=== PATIENT | female | born 1940 | race Caucasian/White ===

== ENCOUNTER 2016-09-15 11:52 | Inpatient (IN) | payer MEDICARE, OTHER ==
[~2016-09-15] VITALS: Ht 154.9 cm; Wt 50.5 kg
[2016-09-15] VITALS (7 sets, daily range): BP systolic 118–170; BP diastolic 67–88; PULSE 75–93; RESP 16–18; TEMP 97.7–98.1; O2SAT 92–97
[~2016-09-15 11:52] MED LIST: LEVO112T2 PO; METHO500 PO; MOBI7.5T PO; RANI150T PO
[2016-09-15] MEDS ORDERED: LEVO150T7 PO (12:36)
[2016-09-15] MEDS ORDERED: ASPI1TAB91 PO (12:36)
[2016-09-15] MEDS ORDERED: MONT10TA2 PO (12:36)
[2016-09-15] MEDS ORDERED: ZANT150T2 PO (12:36)
[2016-09-15] MEDS ORDERED: CALC500T35 PO (12:36)
[2016-09-15] MEDS ORDERED: FISH1200 PO (12:36)
[2016-09-15] MEDS ORDERED: MULT-65 PO (12:36)
[2016-09-15] MEDS ORDERED: IPRA0.03 EACH NARE (12:36)
[2016-09-15] MEDS ORDERED: CLAR10TA7 PO (12:36)
--- NOTE | 2016-09-15 12:42 | PD ---
HPI Chief Complaint: Respiratory Symptoms Time Seen by Provider: 12:36 Travel History International Travel<30 days: No Contact w/Intl Traveler<30days: No Traveled to known affect area: No History of Present Illness HPI 76- year old female presents to the ED complaining of shortness of breath. The patient reports she has been short of breath for the past three weeks, but getting worse in the past week. She reports that she is seeing Dr. Kenny Castillo , her cost reduction engineer who sent her here after reviewing her CXR she had completed on 09/07. The CXR showed fluid under her lungs and an enlarged heart. The patient reports that her shortness of breath is worse with activity. She was prescribed Singulair by Dr. Castillo, which she reports helped a little. The patient reports over the past few nights she has had to get out of bed and sit up in a recliner to catch her breath. She reports her medical conditions include hypothyroidism, allergies, and chronic cough. She reports taking a baby aspirin every morning. PFSH Past Medical History Hx Anticoagulant Therapy: Yes (81 MG ASA) Diminished Hearing: No GERD: Yes Thyroid Disease: Yes (hypothyroid) Tetanus Vaccination: Unknown ?: Not Tubal Ligation: Yes Past Surgical History Abdominal Surgery: Yes (spleenectomy ) Cholecystectomy: Yes (2002) Hysterectomy: Yes Tonsillectomy: Yes Other Surgery: Yes (bilat hand surgeries ) Social History Alcohol Use: No Tobacco Use: No Substance Use: No Allergies-Medications (Allergen,Severity, Reaction): Coded Allergies: Latex (Verified Allergy, Intermediate, RASH AND ITCHY, 09/15/16) ONLY WHEN EXPOSED FOR LONG TIME PERIODS Reported Meds & Prescriptions Reported Meds & Active Scripts Active Reported Singulair (Montelukast Sodium) 10 Mg Tab 10 Mg PO DAILY Calcium (Oyster Shell) 500 Mg Tab 500 Mg PO BID Aspirin Adult Low Strength (Aspirin) 81 Mg Tabdr 81 Mg PO DAILY Multi-Vitamin Daily (Multiple Vitamin) 1 Tab Tab 1 Tab PO DAILY Fish Oil 1200 mg (Schurz-3 Fatty Acids) 1 Cap Cap 1,200 Mg PO DAILY Claritin (Loratadine) 10 Mg Tablet 10 Mg PO DAILY Ipratropium Nasal 0.03% [place] 1 [place] EACH NARE TID Zantac (Ranitidine HCl) 150 Mg Tab 150 Mg PO BID Levothyroxine (Levothyroxine Sodium) 150 Mcg Tab 150 Mcg PO DAILY Review of Systems General / Constitutional: No: Fever, Chills, Weight Gain, Weight Loss, Other Eyes: No: Diploplia, Blurred Vision, Photophobia, Drainage, Redness, Foreign Body Sensation, Pain, Tearing, Blind Spots, Visual changes, Blindness, Other HENT: No: Headaches, Vertigo, Lightheadedness, Sore Throat, Rhinitis, Rhinorrhea, Congestion, Nosebleed, Neck Stiffness, Neck Pain, Masses, Gingival Bleeding, Dental Difficulties, Ear Discharge, Earache, Other Cardiovascular: No: Chest Pain or Discomfort, Palpitations, Irregular Rhythm, Tachycardia, Diaphoresis, Syncope, Dyspnea on exertion, Varicosities, Edema, Cyanosis, Varicosities, Phlebitis, Claudication, Other Respiratory: Positive: Cough, Shortness of Breath, Orthopnea, No: Wheezing, Sneezing, Hemoptysis, Stridor, Night Sweats, Pleuritic Pain, Other Gastrointestinal: No: Nausea, Vomiting, Diarrhea, Abdominal Pain, Hematemesis, Hematochezia, Constipation, Changes in Bowel Habits, Indigestion, Dysphagia, Loss of Appetite, Other Genitourinary: No: Urgency, Frequency, Dysuria, Nocturia, Hematuria, Decreased Urinary Output, Oliguria, Hesitancy, Dribbling, Incontinence, Pelvic Pain, Flank Pain, Dyspareunia, Discharge, Dysmenorrhea, Menorrhagia, Metorrhagia, Vaginal Bleeding, Other Musculoskeletal: No: Myalgias, Arthralgias, Limited ROM, Weakness, Cramping, Edema, Pain, Atrophy, Other Skin: No Rash, No Itching, No Dryness, No Lumps, No Hives, No Change in Pigmentation, No Change in nails, No Alopecia, No Lesions, No Breast Lumps, No Breast Tenderness, No Breast Swelling, No Other Neurologic: No: Weakness, Dizziness, Syncope, Focal Abnormalities, Coordination Problem, Tremor, Ataxia, Headache, Change in Mentation, Slurred Speech, Paresthesia, Incontinence, Seizures, Sensory Disturbance, Other Psychiatric: No: Anxiety, Depression, Suicidal Ideations, Disorder of Thought, Mood Disorder, Substance Abuse, Homicidal Ideation, Other Endocrine: No: Heat Intolerance, Cold Intolerance, Polyuria, Polydipsia, Other Hematologic/Lymphatic: No: Easy Bruising, Lymph Node Enlargement, Other Physical Exam Narrative GENERAL: Patient sitting up. SKIN: Warm and dry. HEAD: Atraumatic. Normocephalic. EYES: Pupils equal and round. No scleral icterus. No injection or drainage. ENT: No nasal bleeding or discharge. Mucous membranes pink and moist. NECK: Trachea midline. No JVD. CARDIOVASCULAR: Regular rate and rhythm. RESPIRATORY: Patient taking breaks while speaking due to SOB. No accessory muscle use. Clear to auscultation. Breath sounds equal bilaterally. GASTROINTESTINAL: Abdomen soft, non-tender, nondistended. Hepatic and splenic margins not palpable. MUSCULOSKELETAL: Extremities without clubbing, cyanosis, or edema. No obvious deformities. NEUROLOGICAL: Awake and alert. No obvious cranial nerve deficits. Motor grossly within normal limits. Five out of 5 muscle strength in the arms and legs. Normal speech. PSYCHIATRIC: Appropriate mood and affect; insight and judgment normal. Data Data Last Documented VS Vital Signs Date Time Temp Pulse Resp B/P Pulse Ox O2 Delivery O2 Flow Rate FiO2 09/15/16 14:37 83 18 145/88 97 Nasal Cannula 3 09/15/16 11:54 97.7 Orders Electrocardiogram (09/15/16 12:25) Complete Blood Count With Diff (09/15/16 12:25) Basic Metabolic Panel (Bmp) (09/15/16 12:25) B-Type Natriuretic Peptide (09/15/16 12:25) D-Dimer (09/15/16 12:25) Magnesium (Mg) (09/15/16 12:25) Chest, Single Ap (09/15/16 12:25) Iv Access Insert/Monitor (09/15/16 12:25) Ecg Monitoring (09/15/16 12:25) Oximetry (09/15/16 12:25) Oxygen Administration (09/15/16 13:02) Ct Pulmonary Angiogram (09/15/16 13:15) Troponin I (09/15/16 13:37) Furosemide Inj (Lasix Inj) (09/15/16 13:45) Iohexol 350 Inj (Omnipaque 350 Inj) (09/15/16 13:59) Admit Order (Ed Use Only) (09/15/16 14:59) Labs Laboratory Tests Test 09/15/16 12:37 White Blood Count 7.7 TH/MM3 Red Blood Count 4.39 MIL/MM3 Hemoglobin 14.2 GM/DL Hematocrit 39.9 % Mean Corpuscular Volume 90.9 FL Mean Corpuscular Hemoglobin 32.2 PG Mean Corpuscular Hemoglobin 35.5 % Concent Red Cell Distribution Width 15.1 % Platelet Count 362 TH/MM3 Mean Platelet Volume 7.6 FL Neutrophils (%) (Auto) 64.8 % Lymphocytes (%) (Auto) 23.6 % Monocytes (%) (Auto) 9.9 % Eosinophils (%) (Auto) 0.9 % Basophils (%) (Auto) 0.8 % Neutrophils # (Auto) 5.0 TH/MM3 Lymphocytes # (Auto) 1.8 TH/MM3 Monocytes # (Auto) 0.8 TH/MM3 Eosinophils # (Auto) 0.1 TH/MM3 Basophils # (Auto) 0.1 TH/MM3 CBC Comment DIFF FINAL Differential Comment D-Dimer Quantitative (PE/DVT) 1.35 MG/L FEU Sodium Level 142 MEQ/L Potassium Level 4.1 MEQ/L Chloride Level 107 MEQ/L Carbon Dioxide Level 26.2 MEQ/L Anion Gap 9 MEQ/L Blood Urea Nitrogen 16 MG/DL Creatinine 0.80 MG/DL Estimat Glomerular Filtration 70 ML/MIN Rate Random Glucose 89 MG/DL Calcium Level 8.7 MG/DL Magnesium Level 2.2 MG/DL Troponin I LESS THAN 0.02 NG/ML B-Type Natriuretic Peptide 624 PG/ML MDM Medical Decision Making Medical Screen Exam Complete: Yes Emergency Medical Condition: Yes Medical Record Reviewed: Yes Interpretation(s) Last Impressions CT Angiography 09/15/16 1315 Signed Impressions: Service Date/Time: Thursday, September 15, 2016 13:50 - CONCLUSION: 1. Negative for pulmonary emboli 2. Moderate congestive failure with small right pleural effusion and minimal consolidative changes left base. Fredy Torres MD FACR Chest X-Ray 09/15/16 1225 Signed Impressions: Service Date/Time: Thursday, September 15, 2016 12:41 - CONCLUSION: Increasing congestive failure. Fredy Torres MD FACR d-dimmer elevated BNP in the 600s CBC & BMP Diagram 09/15/16 12:37 troponin negative EKG shows sinus rhythm with no sign of acute ischemia or arrhythmia read by me and attending. Differential Diagnosis CHF COPD PE Asthma Narrative Course 76-year-old female that presents to the ED for evaluation of shortness of breath and possible fluid on the lungs. Patient was properly examined and was found to have signs and symptoms very consistent appears to be CHF exacerbation. No history of this in the past. This appears to be acute exacerbation. Labs and imaging were ordered. Labs and imaging confirmed CHF exacerbation. At this time recommendations for Lasix and oxygen. Patient will be admitted to the hospital for further workup including possible ultrasound to better evaluate for the heart failure as patient is having her first exacerbation. Patient has no field support representative. No other medical issues. Case was discussed with Kimberly with [facility] Hospitalist who agrees to admission. Diagnosis Primary Impression: Acute exacerbation of CHF (congestive heart failure) Qualified Code: I50.23 - Acute on chronic systolic congestive heart failure Admitting Information Admitting Physician Requests: Observation Adelfo Carter Sep 15, 2016 12:41
[2016-09-15 12:59] LABS: BASOPHIL # 0.1 TH/MM3 (0-0.2); BASOPHIL % 0.8 % (0.0-2.0); EOSINOPHIL # 0.1 TH/MM3 (0-0.4); EOSINOPHIL % 0.9 % (0.0-4.0); HEMATOCRIT 39.9 % (35.0-46.0); HEMO FLAGS DIFF FINAL; LYMPH % 23.6 % (9.0-44.0); LYMPHOCYTE # 1.8 TH/MM3 (1.0-4.8); MEAN CELL VOLUME 90.9 FL (80.0-100.0); MEAN CORPUSCULAR HEMOGLOBIN 32.2 PG (27.0-34.0); MEAN CORPUSCULAR HGB CONC 35.5 % (32.0-36.0); MONO % 9.9 % (0.0-8.0); NEUT % 64.8 % (16.0-70.0); PLATELET COUNT 362 TH/MM3 (150-450); RED BLOOD COUNT 4.39 MIL/MM3 (4.00-5.30); RED CELL DISTRIBUTION WIDTH 15.1 % (11.6-17.2); WHITE BLOOD COUNT 7.7 TH/MM3 (4.0-11.0)
--- NOTE | 2016-09-15 13:04 | RADRPT ---
EXAM DATE/TIME: 09/15/2016 12:41 [facility] COMPARISON: No previous studies available for comparison. EXTERNAL COMPARISON : [facility] X-ray - One week ago. INDICATIONS : Patient has been short of breath for two to three weeks. MEDICAL HISTORY : Hypothyroidism. SURGICAL HISTORY : Hysterectomy. Splenectomy. Tonsillectomy. Colon resection ENCOUNTER: Initial ACUITY: 2 weeks PAIN SCORE: 0/10 LOCATION: Bilateral chest FINDINGS: Moderate interstitial edema is present with cardiomegaly and bilateral pleural effusions. There has been minimal progression from 09/07/16 chest from [facility]. The portion of the bony skeleto n visualized is unremarkable. CONCLUSION: Increasing congestive failure. Fredy Torres MD FACR on September 15, 2016 at 13:01 Board Certified Radiologist. This report was verified electronically.
[2016-09-15 13:23] LABS: BICARBONATE 26.2 MEQ/L (21.0-32.0); MAGNESIUM 2.2 MG/DL (1.5-2.5); POTASSIUM 4.1 MEQ/L (3.5-5.1)
[2016-09-15] MEDS ORDERED: FUROSEMIDE 40 MG/4 ML VIAL IV PUSH ONE (13:45)
[2016-09-15] MEDS ORDERED: IOHEXOL 350 MG/ML 10 ML VIAL (for RAD DIAG) IV ONE (13:59)
--- NOTE | 2016-09-15 14:23 | RADRPT ---
EXAM DATE/TIME: 09/15/2016 13:50 [facility] COMPARISON: No previous studies available for comparison. INDICATIONS : Sort of breath-evaluate for possible pulmonary emoblism. IV CONTRAST: 50 cc Omnipaque 350 (iohexol) IV RADIATION DOSE: 5.07 CTDIvol (mGy) MEDICAL HISTORY : Gastroesophageal reflux disease. SURGICAL HISTORY : Tonsillectomy. Splenectomy.Cholecystectomy.Hysterectomy ENCOUNTER: Initial ACUITY: 3 weeks PAIN SCALE: 3/10 LOCATION: chest TECHNIQUE: Volumetric scanning of the chest was performed using a pulmonary embolism protocol MIP images were re constructed. Using automated exposure control and adjustment of the mA and/or kV according to patien t size, radiation dose was kept as low as reasonably achievable to obtain optimal diagnostic quality images. DICOM format image data is available electronically for review and comparison. Follow-up recommendations for incidentally detected pulmonary nodules are based at a minimum on nodul e size and patient risk factors according to Fleischner Society Guidelines. FINDINGS: PULMONARY ARTERIES: No filling defects are seen in the pulmonary arteries through the segmental level. LUNGS: There is moderate interstitial edema with small bilateral pleural effusions worse on the right than t he left suggesting congestive failure. PLEURAE: Bilateral pleural effusions worse on the right than the left. Psychiatry 20% of the right hemithorax . Minimal consolidative changes left base. MEDIASTINUM: There is good visualization of the great vessels of the middle mediastinum. No evidence of mediastin al or hilar adenopathy/mass. MUSCULOSKELETAL: Within normal limits for patient age. MISCELLANEOUS: There is minimal reflux into the hepatic veins suggesting failure. 2 plates erior appeared simple cy st right lobe of the liver. CONCLUSION: 1. Negative for pulmonary emboli 2. Moderate congestive failure with small right pleural effusion and minimal consolidative changes le ft base. Fredy Torres MD FACR on September 15, 2016 at 14:19 Board Certified Radiologist. This report was verified electronically.
[2016-09-15] MEDS ORDERED: MAGNESIUM HYDROXIDE SUSP 30 ML CUP PO PRN (15:00)
[2016-09-15] MEDS ORDERED: SODIUM CHLORIDE 0.9% FLUSH 10 ML FLUSH IV FLUSH PRN (15:00)
[2016-09-15] MEDS ORDERED: NALOXONE HCL 0.4 MG/ML AMP IV PRN (15:00)
[2016-09-15] MEDS ORDERED: ONDANSETRON HCL 4 MG/2 ML VIAL IVP PRN (15:00)
[2016-09-15] MEDS ORDERED: BISACODYL 10 MG SUPP RECTAL PRN (15:00)
[2016-09-15] MEDS ORDERED: LACTULOSE SYRUP 20 GM/30 ML CUP PO PRN (15:00)
[2016-09-15] MEDS ORDERED: SENNOSIDES 8.6 MG TAB PO PRN (15:00)
[2016-09-15] MEDS ORDERED: ACETAMINOPHEN 325 MG TAB PO PRN (15:00)
--- NOTE | 2016-09-15 16:14 | PD ---
Data Data Last Documented VS Vital Signs Date Time Temp Pulse Resp B/P Pulse Ox O2 Delivery O2 Flow Rate FiO2 09/15/16 14:37 83 18 145/88 97 Nasal Cannula 3 09/15/16 11:54 97.7 Orders Electrocardiogram (09/15/16 12:25) Complete Blood Count With Diff (09/15/16 12:25) Basic Metabolic Panel (Bmp) (09/15/16 12:25) B-Type Natriuretic Peptide (09/15/16 12:25) D-Dimer (09/15/16 12:25) Magnesium (Mg) (09/15/16 12:25) Chest, Single Ap (09/15/16 12:25) Iv Access Insert/Monitor (09/15/16 12:25) Ecg Monitoring (09/15/16 12:25) Oximetry (09/15/16 12:25) Oxygen Administration (09/15/16 13:02) Ct Pulmonary Angiogram (09/15/16 13:15) Troponin I (09/15/16 13:37) Furosemide Inj (Lasix Inj) (09/15/16 13:45) Iohexol 350 Inj (Omnipaque 350 Inj) (09/15/16 13:59) Admit Order (Ed Use Only) (09/15/16 14:59) Labs Laboratory Tests Test 09/15/16 12:37 White Blood Count 7.7 TH/MM3 Red Blood Count 4.39 MIL/MM3 Hemoglobin 14.2 GM/DL Hematocrit 39.9 % Mean Corpuscular Volume 90.9 FL Mean Corpuscular Hemoglobin 32.2 PG Mean Corpuscular Hemoglobin 35.5 % Concent Red Cell Distribution Width 15.1 % Platelet Count 362 TH/MM3 Mean Platelet Volume 7.6 FL Neutrophils (%) (Auto) 64.8 % Lymphocytes (%) (Auto) 23.6 % Monocytes (%) (Auto) 9.9 % Eosinophils (%) (Auto) 0.9 % Basophils (%) (Auto) 0.8 % Neutrophils # (Auto) 5.0 TH/MM3 Lymphocytes # (Auto) 1.8 TH/MM3 Monocytes # (Auto) 0.8 TH/MM3 Eosinophils # (Auto) 0.1 TH/MM3 Basophils # (Auto) 0.1 TH/MM3 CBC Comment DIFF FINAL Differential Comment D-Dimer Quantitative (PE/DVT) 1.35 MG/L FEU Sodium Level 142 MEQ/L Potassium Level 4.1 MEQ/L Chloride Level 107 MEQ/L Carbon Dioxide Level 26.2 MEQ/L Anion Gap 9 MEQ/L Blood Urea Nitrogen 16 MG/DL Creatinine 0.80 MG/DL Estimat Glomerular Filtration 70 ML/MIN Rate Random Glucose 89 MG/DL Calcium Level 8.7 MG/DL Magnesium Level 2.2 MG/DL Troponin I LESS THAN 0.02 NG/ML B-Type Natriuretic Peptide 624 PG/ML [facility] Supervised Visit with RENÉE: Yes Narrative Course The history, exam, and medical decision-making in the associated midlevel provider note were completed with my assistance. I reviewed and agree with the findings presented. I attest that I had a [id number] encounter with the patient on the same day, and personally performed and documented my assessment and findings in the medical record. *My assessment and Findings: This is a 76-year-old female who presents to the emergency department with increasing shortness of breath. Chest x-ray demonstrates pulmonary edema and her BNP is elevated consistent with congestive heart failure. This is a new diagnosis for her. Plan on observation and continued cardiology evaluation with diuresis. Diagnosis Primary Impression: Acute exacerbation of CHF (congestive heart failure) Qualified Code: I50.23 - Acute on chronic systolic congestive heart failure Haley Acosta MD Sep 15, 2016 16:14
[2016-09-15] MEDS: ENOXAPARIN SODIUM 40 MG/0.4 ML SYRINGE SQ SCH (16:49)
--- NOTE | 2016-09-15 17:19 | HHI.HP ---
[facility] Scott Santillan MD (Paul) Admission Diagnosis acute CHF exacerbation Diagnoses: Chief Complaint: SOB Travel History International Travel<30 Days: No Contact w/Intl Traveler <30 Da: No Traveled to Known Affected Are: No History of Present Illness This a 76-year-old elderly female who is usually in good health. Patient presents to the emergency room for complaint of worsening shortness of breath. Patient states that approximately a month ago she started to develop some shortness of breath that initially was mild. She also had some nasal congestion. She went to see Dr. Castillo who started her on Singulair and also ordered an x-ray. She went to review old x-ray reports today for a follow-up appointment and was told that chest x-ray showed fluid around her lungs an enlarged heart. Patient endorses that over the last couple of weeks, shortness of breath has become more significant. She has noted increased dyspnea on exertion with minimal activity just walking from the living room to her bedroom. She denies any leg swelling. Has had chest tightness associated with episodes of shortness of breath, no palpitations, no lightheadedness or dizziness. She's had a cough with productive white sputum. No fever, no chills. She denies any history of coronary artery disease, no prior diabetes, no strokes, no hypertension. Patient states that a couple years ago she saw a patient service coordinator in [place] for some type of palpitations which she describes as a "strong heartbeat", she had a stress test that was negative. She did not continue to follow-up. Patient was evaluated in emergency room. Laboratory workup was completed and significant for being atretic peptide level of 624. Troponin was negative. CBC was unremarkable. D-dimer was positive, therefore CTA was completed which was negative for pulmonary emboli. CTA did show moderate congestive heart failure with small right pleural effusion and minimal consolidative changes to the left base. Patient was afebrile, blood pressure was noted elevated up to 170s, currently 130s. Patient was given 40 mg Lasix. At this time, she continues to cough, appears that she does have some orthopnea and cannot lay flat. Patient is admitted for further evaluation and treatment. Review of Systems Constitutional: DENIES: Diaphoretic episodes, Fatigue, Fever, Weight gain, Weight loss, Chills, Dizziness, Change in appetite, Night Sweats Endocrine: DENIES: Abnorml menstrual pattern, Heat/cold intolerance, Polydipsia , Polyuria, Polyphagia Eyes: DENIES: Blurred vision, Diplopia, Eye inflammation, Eye pain, Vision loss , Photosensitivity, Double Vision Ears, nose, mouth, throat: COMPLAINS OF: Nasal discharge, DENIES: Tinnitus, Hearing loss, Vertigo, Oral lesions, Throat pain, Hoarseness, Ear Pain, Running Nose, Epistaxis, Sinus Pain, Toothache, Odynophagia Respiratory: COMPLAINS OF: Cough, DENIES: Apneas, Snoring, Wheezing, Hemoptysis, Sputum production, Shortness of breath Cardiovascular: COMPLAINS OF: Dyspnea on Exertion, Orthopnea, DENIES: Chest pain, Palpitations, Syncope, PND, Lower Extremity Edema, Claudication Gastrointestinal: DENIES: Abdominal pain, Black stools, Bloody stools, Constipation, Diarrhea, Nausea, Vomiting, Difficulty Swallowing, Anorexia Genitourinary: DENIES: Abnormal vaginal bleeding, Dysmenorrhea, Dyspareunia, Sexual dysfunction, Urinary frequency, Urinary incontinence, Urgency, Hematuria , Dysuria, Nocturia, Vaginal discharge Musculoskeletal: DENIES: Joint pain, Muscle aches, Stiffness, Joint Swelling, Back pain, Neck pain Integumentary: DENIES: Abnormal pigmentation, Pruritus, Rash, Nail changes, Breast masses, Breast skin changes, Nipple discharge Hematologic/lymphatic: DENIES: Bruising, Lymphadenopathy Immunologic/allergic: DENIES: Eczema, Urticaria Neurologic: DENIES: Abnormal gait, Headache, Localized weakness, Paresthesias, Seizures, Speech Problems, Tremor, Poor Balance Psychiatric: DENIES: Anxiety, Confusion, Mood changes, Depression, Hallucinations, Agitation, Suicidal Ideation, Homicidal Ideation, Delusions Past Family Social History Past Medical History Hypothyroid GERD Allergic rhinitis Saw patient service coordinator many years ago for palpitations, had a stress test that was negative. Past Surgical History Carpal tunnel release surgery both hands Tonsillectomy Hysterectomy Colon resection secondary to a polyp splenectomy at age 5 for hx of hereditary spherocytosis Reported Medications Reported Meds & Active Scripts Active Reported Singulair (Montelukast Sodium) 10 Mg Tab 10 Mg PO DAILY Calcium (Oyster Shell) 500 Mg Tab 500 Mg PO BID Aspirin Adult Low Strength (Aspirin) 81 Mg Tabdr 81 Mg PO DAILY Multi-Vitamin Daily (Multiple Vitamin) 1 Tab Tab 1 Tab PO DAILY Fish Oil 1200 mg ([place]-3 Fatty Acids) 1 Cap Cap 1,200 Mg PO DAILY Claritin (Loratadine) 10 Mg Tablet 10 Mg PO DAILY Ipratropium Nasal 0.03% Willard 1 Willard EACH NARE TID Zantac (Ranitidine HCl) 150 Mg Tab 150 Mg PO BID Levothyroxine (Levothyroxine Sodium) 150 Mcg Tab 150 Mcg PO DAILY Allergies: Coded Allergies: Latex (Verified Allergy, Intermediate, RASH AND ITCHY, 09/15/16) ONLY WHEN EXPOSED FOR LONG TIME PERIODS Active Ordered Medications Inpatient Medications Acetaminophen (Tylenol) 650 mg Q4H PRN PO TEMP > 100.4; Start 09/15/16 at 15:00 Aspirin (Ecotrin Ec) 81 mg DAILY PO ; Start 09/16/16 at 09:00 Bisacodyl (Dulcolax Supp) 10 mg DAILY PRN RECTAL SEVERE CONSITIPATION; Start at 15:00 Enoxaparin Sodium (Lovenox Inj) 40 mg Q24H SQ Last administered on 09/15/16t 16: 49; Start 09/15/16 at 17:00 Famotidine (Pepcid) 20 mg BID PO ; Start 09/15/16 at 21:00 Furosemide (Lasix Inj) 20 mg BID@09,18 IV PUSH ; Start 09/16/16 at 09:00 Lactulose (Lactulose Liq) 30 ml DAILY PRN PO SEVERE CONSITIPATION; Start at 15:00 Levothyroxine Sodium (Synthroid) 150 mcg DAILY@06 PO ; Start 09/16/16 at 06:00 Loratadine (Claritin) 10 mg DAILY PO ; Start 09/16/16 at 09:00 Magnesium Hydroxide (Milk Of Magnesia Liq) 30 ml Q12H PRN PO MILD - MODERATE CONSTIPATION; Start 09/15/16 at 15:00 Montelukast Sodium (Singulair) 10 mg DAILY PO ; Start 09/16/16 at 09:00 Naloxone HCl (Narcan Inj) 0.4 mg UNSCH PRN IV SEE LABEL COMMENTS; Start at 15:00 Ondansetron HCl (Zofran Inj) 4 mg Q6H PRN IVP NAUSEA OR VOMITING; Start at 15:00 Senna/Docusate Sodium ([place]-Colace) 1 tab BID PO ; Start 09/15/16 at 21:00 Sennosides (Senokot) 17.2 mg Q12H PRN PO MODERATE - SEVERE CONSTIPATION; Start 09/15/16 at 15:00 Sodium Chloride (NS Flush) 2 ml BID IV FLUSH ; Start 09/15/16 at 21:00 Family History Positive for hereditary spherocytosis Both parents had Alzheimer's, father had some type of cancer. Social History Patient lives with her daughter. No smoking, no alcohol, no substance abuse. She moved to this area from [place] 3 years ago. Very active Physical Exam Vital Signs Vital Signs Date Time Temp Pulse Resp B/P Pulse Ox O2 Delivery O2 Flow Rate FiO2 09/15/16 15:46 84 18 129/73 97 Room Air 09/15/16 14:37 83 18 145/88 97 Nasal Cannula 3 09/15/16 14:37 98 Nasal Cannula 3 09/15/16 12:23 100 18 93 Room Air 09/15/16 12:23 93 18 170/88 93 09/15/16 11:54 97.7 75 16 140/80 95 Physical Exam GENERAL: This is a well-nourished, well-developed patient, in no apparent distress. SKIN: No rashes, ecchymoses or lesions. Cool and dry. HEAD: Atraumatic. Normocephalic. No temporal or scalp tenderness. EYES: Pupils equal round and reactive. Extraocular motions intact. No scleral icterus. No injection or drainage. ENT: Nose without bleeding, purulent drainage or septal hematoma. Throat without erythema, tonsillar hypertrophy or exudate. Uvula midline. Airway patent. NECK: Trachea midline. No JVD or lymphadenopathy. Supple, nontender, no meningeal signs. CARDIOVASCULAR: Regular rate and rhythm without murmurs, gallops, or rubs. RESPIRATORY:Bibasilar rales mid to lower bases. GASTROINTESTINAL: Abdomen soft, non-tender, nondistended. No hepato-splenomegaly , or palpable masses. No guarding. MUSCULOSKELETAL: Extremities without clubbing, cyanosis, or edema. No joint tenderness, effusion, or edema noted. No calf tenderness. Negative Homans sign bilaterally. NEUROLOGICAL: Awake and alert. Cranial nerves II through XII intact. Motor and sensory grossly within normal limits. Five out of 5 muscle strength in all muscle groups. Normal speech. Laboratory Laboratory Tests Test 09/15/16 12:37 White Blood Count 7.7 Red Blood Count 4.39 Hemoglobin 14.2 Hematocrit 39.9 Mean Corpuscular Volume 90.9 Mean Corpuscular Hemoglobin 32.2 Mean Corpuscular Hemoglobin 35.5 Concent Red Cell Distribution Width 15.1 Platelet Count 362 Mean Platelet Volume 7.6 Neutrophils (%) (Auto) 64.8 Lymphocytes (%) (Auto) 23.6 Monocytes (%) (Auto) 9.9 Eosinophils (%) (Auto) 0.9 Basophils (%) (Auto) 0.8 Neutrophils # (Auto) 5.0 Lymphocytes # (Auto) 1.8 Monocytes # (Auto) 0.8 Eosinophils # (Auto) 0.1 Basophils # (Auto) 0.1 CBC Comment DIFF FINAL Differential Comment D-Dimer Quantitative (PE/DVT) 1.35 Sodium Level 142 Potassium Level 4.1 Chloride Level 107 Carbon Dioxide Level 26.2 Anion Gap 9 Blood Urea Nitrogen 16 Creatinine 0.80 Estimat Glomerular Filtration 70 Rate Random Glucose 89 Calcium Level 8.7 Magnesium Level 2.2 Troponin I LESS THAN 0.02 B-Type Natriuretic Peptide 624 Result Diagram: 09/15/16 1237 09/15/16 [address] Angiography 09/15/16 1315 Signed Impressions: Service Date/Time: Thursday, September 15, 2016 13:50 - CONCLUSION: 1. Negative for pulmonary emboli 2. Moderate congestive failure with small right pleural effusion and minimal consolidative changes left base. Fredy Torres MD FACR Chest X-Ray 09/15/16 1225 Signed Impressions: Service Date/Time: Thursday, September 15, 2016 12:41 - CONCLUSION: Increasing congestive failure. Fredy Torres MD FACR Assessment and Plan Problem List: (1) Acute exacerbation of CHF (congestive heart failure) (2) Hypothyroid (3) Allergic rhinitis Assessment and Plan Admit to Dr. Brown 76-year-old female presented to emergency room with progressive shortness of breath, found in acute congestive heart failure,new onset. Continuous cardiac telemetry Continue with serial cardiac enzymes We will order 2-D echo Continue Lasix 20 mg IV twice a day Consult cardiology for evaluation Hypothyroid Continue home medications Allergic rhinitis Continue home medications Home medications reviewed, initiated as indicated SCDs for DVT prophylaxis Plan of care has been discussed with the patient, attending and registered nurse. Further management of the patient will be dependent on the hospital course This patient was seen by myself and Dr. Brown, this H&P is written his behalf Problem Qualifiers (1) Acute exacerbation of CHF (congestive heart failure): Qualified Code: I50.23 - Acute on chronic systolic congestive heart failure (2) Hypothyroid: Qualified Code: E03.9 - Hypothyroidism, unspecified type (3) Allergic rhinitis: Charissa Boyd Sep 15, 2016 17:19
[2016-09-15] MEDS ORDERED: INFO FOR PHARMACY/READ COMMENT SCH (18:45)
[2016-09-15] MEDS: FAMOTIDINE 20 MG TAB PO SCH (20:43)
[2016-09-15] MEDS: DOCUSATE SODIUM 50 MG/SENNA 8.6 MG TAB PO SCH (20:43)
[2016-09-15] MEDS: SODIUM CHLORIDE 0.9% FLUSH 10 ML FLUSH IV FLUSH SCH (20:43)
[2016-09-16] VITALS (10 sets, daily range): BP systolic 90–120; BP diastolic 51–72; PULSE 62–97; RESP 18–20; TEMP 97.6–98.7; O2SAT 93–99
[2016-09-16] MEDS: LEVOTHYROXINE SODIUM 150 MCG TAB PO SCH (05:48)
[2016-09-16] MEDS: DOCUSATE SODIUM 50 MG/SENNA 8.6 MG TAB PO SCH ×2 (09:00→21:00)
[2016-09-16] MEDS ORDERED: FUROSEMIDE 20 MG/2 ML VIAL IV PUSH SCH (09:00)
[2016-09-16] MEDS ORDERED: IPRATROPIUM 0.03% NASAL SCH (09:00)
--- NOTE | 2016-09-16 09:06 | HHI.PR ---
Subjective Subjective Remarks Less cough and shortness of breath No chest pain no fever anxious to go home today Telemetry reviewed, some episodes of tachycardia overnight, irregular. Review of Systems Constitutional Constitutional Remarks 12 point review of systems completed, negative except as noted above Vitals/Results Intake & Output 09/15/16 09/15/16 09/16/16 15:00 23:00 07:00 Intake Total 480 ml Output Total 800 ml Balance -320 ml Intake Oral 480 ml Output Urine Total 800 ml Vital Signs Vital Signs Date Time Temp Pulse Resp B/P Pulse Ox O2 Delivery O2 Flow Rate FiO2 09/16/16 08:38 97.6 76 18 120/70 93 09/16/16 04:02 98.4 73 18 118/72 95 09/16/16 03:55 62 09/16/16 00:24 97.9 70 18 119/67 98 09/16/16 00:00 79 09/15/16 20:05 82 09/15/16 19:50 98.1 84 18 118/67 92 09/15/16 17:38 98.0 80 18 136/80 96 09/15/16 15:46 84 18 129/73 97 Room Air 09/15/16 14:37 83 18 145/88 97 Nasal Cannula 3 09/15/16 14:37 98 Nasal Cannula 3 09/15/16 12:23 100 18 93 Room Air 09/15/16 12:23 93 18 170/88 93 09/15/16 11:54 97.7 75 16 140/80 95 CBC/BMP: 09/15/16 1237 09/15/16 1237 Lab Results Laboratory Tests Test 09/15/16 09/15/16 12:37 23:55 White Blood Count 7.7 TH/MM3 Red Blood Count 4.39 MIL/MM3 Hemoglobin 14.2 GM/DL Hematocrit 39.9 % Mean Corpuscular Volume 90.9 FL Mean Corpuscular Hemoglobin 32.2 PG Mean Corpuscular Hemoglobin 35.5 % Concent Red Cell Distribution Width 15.1 % Platelet Count 362 TH/MM3 Mean Platelet Volume 7.6 FL Neutrophils (%) (Auto) 64.8 % Lymphocytes (%) (Auto) 23.6 % Monocytes (%) (Auto) 9.9 % Eosinophils (%) (Auto) 0.9 % Basophils (%) (Auto) 0.8 % Neutrophils # (Auto) 5.0 TH/MM3 Lymphocytes # (Auto) 1.8 TH/MM3 Monocytes # (Auto) 0.8 TH/MM3 Eosinophils # (Auto) 0.1 TH/MM3 Basophils # (Auto) 0.1 TH/MM3 CBC Comment DIFF FINAL Differential Comment D-Dimer Quantitative (PE/DVT) 1.35 MG/L FEU Sodium Level 142 MEQ/L Potassium Level 4.1 MEQ/L Chloride Level 107 MEQ/L Carbon Dioxide Level 26.2 MEQ/L Anion Gap 9 MEQ/L Blood Urea Nitrogen 16 MG/DL Creatinine 0.80 MG/DL Estimat Glomerular Filtration 70 ML/MIN Rate Random Glucose 89 MG/DL Calcium Level 8.7 MG/DL Magnesium Level 2.2 MG/DL Troponin I LESS THAN 0.02 0.03 NG/ML NG/ML B-Type Natriuretic Peptide 624 PG/ML Total Creatine Kinase 188 U/L Physical Exam General General Appearance: Well Developed, Well Nourished, No Acute Distress, Comfortable Eyes Eye Exam: Pupils Equal, Pupils Reactive Ears & Nose Ears & Nose Exam: Nasal Mucosa [place] Throat Throat Exam: Oral Mucosa [place] & Moist Neck Neck Exam: Neck Supple, Trachea Midline Pulmonary Resp Exam: Crackles Cardiology CV Exam: Regular, Good Perfusion Gastrointestinal/Abdomen GI Exam: Soft, Non-Tender, Bowel Sounds Present, Non-Distended Musculoskeletal MS Exam: Joints Intact Integumentary Skin Exam: Warm, Intact Extremeties Extremities Exam: No Edema, Pedal Pulses Palpable Neurologic Neuro Exam: Alert, Awake, Oriented, Speech Clear, Moving All Extremities, No Focal Deficits VTE Prophylaxis VTE Prophylaxis Meds: Lovenox Assessment/Plan Problem List: (1) Acute exacerbation of CHF (congestive heart failure) (2) Allergic rhinitis (3) Hypothyroid (4) Left bundle branch block Assessment/Plan 76-year-old female presented to emergency room with progressive shortness of breath, found in acute congestive heart failure,new onset. Continuous cardiac telemetry Cardiac enzymes negative 2-D echo pending Continue Lasix 20 mg IV twice a day Consult cardiology for evaluation-pending -symptoms improving, episodes of tachycardia overnight, irregular. EKG left BBB. Hypothyroid Continue home medications Allergic rhinitis Continue home medications SCDs for DVT prophylaxis Shortness of breath improving We will wait for cardiology for further recommendations, possible discharge later today depending on echo results. D/W RN D/W Dr. Brown D/W pt This patient was seen by myself and Dr. Brown, this note is written his behalf Problem Qualifiers (1) Acute exacerbation of CHF (congestive heart failure): Qualified Code: I50.23 - Acute on chronic systolic congestive heart failure (2) Allergic rhinitis: (3) Hypothyroid: Qualified Code: E03.9 - Hypothyroidism, unspecified type Charissa Boyd Sep 16, 2016 09:06
[2016-09-16] MEDS: SODIUM CHLORIDE 0.9% FLUSH 10 ML FLUSH IV FLUSH SCH ×2 (09:48→20:40)
[2016-09-16] MEDS: ASPIRIN EC 81 MG TABEC PO SCH (09:48)
[2016-09-16] MEDS: LORATADINE 10 MG TAB PO SCH (09:49)
[2016-09-16] MEDS: FAMOTIDINE 20 MG TAB PO SCH ×2 (09:49→20:37)
[2016-09-16] MEDS: MONTELUKAST SODIUM 10 MG TAB PO SCH (09:49)
[2016-09-16] MEDS ORDERED: PNEUMOCOCCAL POLYVALENT INJ 25 MCG/0.5 ML SYR IM ONE (10:00)
[2016-09-16 11:04] LABS: BICARBONATE 26.5 MEQ/L (21.0-32.0); POTASSIUM 3.3 MEQ/L (3.5-5.1)
--- NOTE | 2016-09-16 13:42 | EKG ---
Date Performed: 09/15/2016 Time Performed: 13:34:29 PTAGE: 76 years EKG: Sinus rhythm MARKED LEFT AXIS DEVIATION LEFT BUNDLE BRANCH BLOCK ABNORMAL ECG NO PREVIOUS TRACING DOCTOR: Mal Bonner Interpretating Date/Time 09/16/2016 13:39:52
--- NOTE | 2016-09-16 13:42 | EKG ---
Date Performed: 09/16/2016 Time Performed: 00:25:27 PTAGE: 76 years EKG: Sinus rhythm MARKED LEFT AXIS DEVIATION LEFT BUNDLE BRANCH BLOCK ABNORMAL ECG PREVIOUS TRACING : 09/15/2016 13.34 Since previous tracing, no significant change noted DOCTOR: Mal Bonner Interpretating Date/Time 09/16/2016 13:40:00
--- NOTE | 2016-09-16 14:21 | MB ---
cc: REID RICHARDS MD DATE OF CONSULTATION: 09/16/2016. REASON FOR CONSULTATION: New onset congestive heart failure. HISTORY OF PRESENT ILLNESS: The patient is a very pleasant 76-year-old woman with no prior cardiac history who presents with about a month of worsening dyspnea on exertion. Her labs, clinical findings and chest x-ray were all consistent with congestive heart failure on admission and she was given IV Lasix which has notably improved her symptoms. She now says she can walk around the nurse's station without feeling dyspneic. She denies any other symptoms such as chest pain, lightheadedness, dizziness or syncope and she has never had a cardiac problem previously. PAST MEDICAL HISTORY: 1. Gastroesophageal reflux disease (GERD). 2. Hypothyroidism. CURRENT MEDICATIONS: 1. Lasix 20 milligrams IV twice a day. 2. Aspirin 81 milligrams daily. 3. Claritin 10 milligrams daily. 4. Synthroid. ALLERGIES: 1. LATEX. PHYSICAL EXAMINATION: VITAL SIGNS: Afebrile. Pulse 76. Respiratory rate 18. Blood pressure 55288. Satting 93% on room air. GENERAL: A pleasant elderly woman in no distress. NECK: Mild jugular venous distention at a 45 degree angle. LUNGS: Clear to auscultation. CARDIOVASCULAR: Regular rate and rhythm. No significant murmurs appreciated. ABDOMEN: Benign. EXTREMITIES: No edema. LABORATORY DATA: Cardiac enzymes negative x3. BNP is 624. Sodium 142, potassium 4.1, chloride 107, bicarbonate 26.2, BUN 16, creatinine 0.8, glucose 89. IMAGING STUDIES: CT of the chest showed moderate congestive heart failure without pulmonary embolism. EKGS: EKG showed sinus rhythm, left bundle-branch block. IMPRESSION: 1. Congestive heart failure. With the patient's left bundle-branch block and congestive heart failure I suspect she likely does have some systolic dysfunction. I will order an echocardiogram to confirm and also a nuclear stress test to determine whether her presumed cardiomyopathy is ischemic or nonischemic. I will increase her Lasix to 40 milligrams IV twice a day because she says she has stopped diuresing and still is requiring oxygen. Further recommendations and medication changed will be based on her nuclear stress test and echocardiogram. Thank you again for the opportunity to participate in this patient's care. MD EMIR Temple/RUDDY /11:38 AM /2:11 PM
--- NOTE | 2016-09-16 14:27 | ECHRPT ---
Indication: HEART FAILURE CONCLUSIONS The left ventricular systolic function is severely reduced with an estimated ejection fraction less than 20%.; global hypokinesis. There are findings consistent with dilated cardiomyopathy. There is global LV dysfunction.doppler parameters are consistent with impaired left ventricular rela xtion (grade 1 diastolic dysfunction). The left atrial size is moderately dilated. Moderate mitral valve regurgitation. Aortic valve sclerosis is present. No aortic valve stenosis. Hszz-te-teidzusa aortic valve regurgitation. Normal estimated pulmonary pressures. There is mild tricuspid valve regurgitation. BP: 120 / 70 HR: 76 Rhythm: Sinus MEASUREMENTS (Male / Female) Normal Values Technical Quality:Good 2D ECHO LV Diastolic Diameter PLAX 5.7 cm 4.2 - 5.9 / 3.9 - 5.3 cm LV Systolic Diameter PLAX 5.0 cm IVS Diastolic Thickness 0.7 cm 0.6 - 1.0 / 0.6 - 0.9 cm LVPW Diastolic Thickness 0.8 cm 0.6 - 1.0 / 0.6 - 0.9 cm LV Relative Wall Thickness 0.3 LVOT Diameter 2.0 cm Aortic Root Diameter 3.0 cm LA Systolic Diameter LX 3.2 cm 3.0 - 4.0 / 2.7 - 3.8 cm LA Volume Index 59.9 cm/m 16 - 28 cm/m M-MODE AV Cusp Separation MM 1.8 cm DOPPLER AV Peak Velocity 142.0 cm/s AV Peak Gradient 8.1 mmHg AV Mean Gradient 4.0 mmHg AV Velocity Time Integral 23.5 cm AI Peak Velocity 428.0 cm/s AI Peak Gradient 73.3 mmHg AI Pressure Half Time 451.0 ms LVOT Peak Velocity 76.7 cm/s LVOT Peak Gradient 2.4 mmHg LVOT Velocity Time Integral 11.6 cm LVOT Cardiac Index 1835.1 cm/minm AV Area Cont Eq vti 1.6 cm AV Area Cont Eq pk 1.7 cm Mitral E Point Velocity 72.6 cm/s Mitral A Point Velocity 92.8 cm/s Mitral E to A Ratio 0.8 LV E' Lateral Velocity 3.1 cm/s Mitral E to LV E' Lateral Ratio 23.3 LV E' Septal Velocity 3.3 cm/s Mitral E to LV E' Septal Ratio 21.9 TR Peak Velocity 240.0 cm/s TR Peak Gradient 23.0 mmHg PV Peak Velocity 45.1 cm/s PV Peak Gradient 0.8 mmHg FINDINGS LEFT VENTRICLE There are findings consistent with a dilated cardiomyopathy. The left ventricular systolic function is severely reduced with an estimated ejection fraction less than 20%. There is global LV dysfunction.doppler parameters are consistent with impaired left ventricular rela xtion (grade 1 diastolic dysfunction). RIGHT VENTRICLE Normal right ventricular size and systolic function. LEFT ATRIUM The left atrial size is moderately dilated. RIGHT ATRIUM The right atrial size is normal. ATRIAL SEPTUM Normal atrial septal thickness without atrial level shunting by limited color doppler interrogation. AORTA The aortic root and proximal ascending aorta are normal in size on limited imaging. MITRAL VALVE Structurally normal mitral valve. Moderate mitral valve regurgitation. AORTIC VALVE Aortic valve sclerosis is present. No aortic valve stenosis. [id number] aortic valve regurgitation. TRICUSPID VALVE Structurally normal tricuspid valve. Normal estimated pulmonary pressures. There is mild tricuspid valve regurgitation. PULMONARY VALVE The pulmonary valve is not well visualized. VESSELS The inferior vena cava is normal in size. PERICARDIUM No pericardial effusion. iT Albert MD (Electronically Signed) Final Date:16 September 2016 14:26
[2016-09-16] MEDS ORDERED: REGADENOSON INJ 0.4 MG/5 ML SYR ONE (14:58)
--- NOTE | 2016-09-16 15:56 | RADRPT ---
EXAM DATE/TIME: 09/16/2016 13:56 [facility] COMPARISON: No previous studies available for comparison. INDICATIONS : Worsening dyspnea over the last month sometimes associated with chest pain. Angina. DOSE: 26.3 mCi Tc99m Myoview at stress. 8.8 mCi Tc99m Myoview at rest. 0.4 mg Lexiscan STRESS SYMPTOMS: Lightheadedness. EJECTION FRACTION: 22% MEDICAL HISTORY : Gastroesophageal reflux disease. SURGICAL HISTORY : Tonsillectomy. Cholecystectomy. Hysterectomy. ENCOUNTER: Initial ACUITY: 1 month PAIN SCALE: 3/10 LOCATION: chest TECHNIQUE: The patient underwent pharmacologic stress with infusion of prescribed dose. Continuous ECG tracing was monitored during stress. Gated SPECT imaging was performed after stress and conventional SPECT i maging was performed at rest. The examination was performed on a SPECT/CT scanner, both attenuation and non-corrected datasets were reviewed. FINDINGS: DISTRIBUTION: The maximum perfused segment at stress is in the anterolateral wall. PERFUSION STUDY: Small fixed perfusion defect seen in the anterior wall and also at the apex suggesting old, small inf arcts. No reversible perfusion defects are seen. GATED STUDY: There is left ventricular dilatation and severe global hypokinesia. Left ventricular ejection fractio n is 22%. CONCLUSION: 1. No stress-induced ischemia. 2. Apical and anterior lateral wall infarct. 3. Left ventricular dilatation and severe, diffuse hypokinesia. RISK CATEGORY: Moderate to high Darren Parrish MD on September 16, 2016 at 15:53 Board Certified Radiologist. This report was verified electronically.
[2016-09-16] MEDS: ENOXAPARIN SODIUM 40 MG/0.4 ML SYRINGE SQ SCH (17:00)
[2016-09-16] MEDS: FUROSEMIDE 20 MG/2 ML VIAL IV PUSH SCH (18:13)
[2016-09-16] MEDS: METOPROLOL TARTRATE 25 MG TAB PO SCH (20:39)
[2016-09-16] MEDS: IPRATROPIUM 0.03% NASAL SCH (20:41)
[2016-09-16] MEDS ORDERED: PILL SPLITTER OTHER PRN (21:00)
[2016-09-16] MEDS ORDERED: FAMOTIDINE 20 MG TAB PO SCH (21:00)
[2016-09-17] VITALS (14 sets, daily range): BP systolic 95–108; BP diastolic 51–65; PULSE 66–121; RESP 16–20; TEMP 97.7–98.4; O2SAT 96–98
[2016-09-17] MEDS: LEVOTHYROXINE SODIUM 150 MCG TAB PO SCH (06:03)
--- NOTE | 2016-09-17 08:28 | HHI.PR ---
Subjective Subjective Remarks Shortness of breath markedly improved, remains on oxygen at 2 L On room air, sats down to 93 from 98 Indicates that she's been able to ambulate around unit and has tolerated well No chest pain or Palpitations Diuresing well Telemetry reviewed, sinus rhythm, occasional episodes of atrial tach Review of Systems Constitutional Constitutional Remarks 12 point review of systems completed, negative except as noted above Vitals/Results Intake & Output 09/16/16 09/16/16 09/17/16 15:00 23:00 07:00 Intake Total 1020 ml Output Total 300 ml 1500 ml 1400 ml Balance -300 ml -1500 ml -380 ml Intake Oral 1020 ml Output Urine Total 300 ml 1500 ml 1400 ml # Voids 2 4 # Bowel Movements 1 0 Vital Signs Vital Signs Date Time Temp Pulse Resp B/P Pulse Ox O2 Delivery O2 Flow Rate FiO2 09/17/16 07:47 97.9 74 18 108/65 97 09/17/16 04:15 66 09/17/16 04:00 97.8 67 18 101/59 98 09/17/16 00:15 69 09/17/16 00:00 98.4 70 20 107/61 97 09/16/16 20:25 97 09/16/16 20:00 98.4 96 18 102/51 97 09/16/16 16:25 98.0 82 18 109/60 99 09/16/16 13:00 98.7 88 20 113/67 94 09/16/16 09:45 77 09/16/16 08:38 97.6 76 18 120/70 93 CBC/BMP: 09/15/16 1237 09/16/16 0738 Physical Exam General General Appearance: Well Developed, Well Nourished, No Acute Distress, Comfortable Eyes Eye Exam: Pupils Equal, Pupils Reactive Ears & Nose Ears & Nose Exam: Nasal Mucosa [place] Throat Throat Exam: Oral Mucosa [place] & Moist Neck Neck Exam: Neck Supple, Trachea Midline Pulmonary Resp Exam: Crackles (faint, improved) Cardiology CV Exam: Regular, Good Perfusion Gastrointestinal/Abdomen GI Exam: Soft, Non-Tender, Bowel Sounds Present, Non-Distended Musculoskeletal MS Exam: Joints Intact Integumentary Skin Exam: Warm, Intact Extremeties Extremities Exam: No Edema, Pedal Pulses Palpable Neurologic Neuro Exam: Alert, Awake, Oriented, Speech Clear, Moving All Extremities, No Focal Deficits VTE Prophylaxis VTE Prophylaxis Meds: Lovenox Assessment/Plan Problem List: (1) Acute exacerbation of CHF (congestive heart failure) (2) Allergic rhinitis (3) Hypothyroid (4) Left bundle branch block Assessment/Plan 76-year-old female presented to emergency room with progressive shortness of breath, found in acute congestive heart failure,new onset. Continuous cardiac telemetry Cardiac enzymes negative Lasix increased to 40 mg IV twice a day per cardiology, continue for now Appreciate cardiology input, recommended stress test Stress test A5 2017no stress-induced ischemia, apical and anterior lateral infarct, left ventricular dilatation and severe diffuse hypokinesia 2-D echo results noted, EF less than 20%, global hypokinesis, moderate mitral valve regurgitation, grade 1 diastolic dysfunction -Patient was started on Lopressor 2.5 mg by mouth twice a day and lisinopril 2.5 mg by mouth daily -We'll likely need a LifeVest before discharge, defer to Dr. Escoto Hypothyroid Continue home medications Allergic rhinitis Continue home medications SCDs for DVT prophylaxis Shortness of breath improving, diuresing well Will likely need LifeVest before discharge We will obtain walk test to evaluate whether patient will need oxygen at discharge Poss discharge today if okay with cardiology D/W RN D/W Dr. Brown D/W pt and daughter This patient was seen by myself and Dr. Brown, this note is written his behalf Problem Qualifiers (1) Acute exacerbation of CHF (congestive heart failure): Qualified Code: I50.23 - Acute on chronic systolic congestive heart failure (2) Allergic rhinitis: (3) Hypothyroid: Qualified Code: E03.9 - Hypothyroidism, unspecified type Charissa Boyd Sep 17, 2016 08:28
[2016-09-17] MEDS: DOCUSATE SODIUM 50 MG/SENNA 8.6 MG TAB PO SCH ×2 (09:00→21:00)
[2016-09-17] MEDS ORDERED: LISINOPRIL 5 MG TAB PO SCH (09:00)
[2016-09-17] MEDS: FUROSEMIDE 20 MG/2 ML VIAL IV PUSH SCH ×2 (09:45→17:14)
[2016-09-17] MEDS: ASPIRIN EC 81 MG TABEC PO SCH (09:46)
[2016-09-17] MEDS: SODIUM CHLORIDE 0.9% FLUSH 10 ML FLUSH IV FLUSH SCH ×2 (09:46→23:01)
[2016-09-17] MEDS: METOPROLOL TARTRATE 25 MG TAB PO SCH (09:46)
[2016-09-17] MEDS: MONTELUKAST SODIUM 10 MG TAB PO SCH (09:46)
[2016-09-17] MEDS: FAMOTIDINE 20 MG TAB PO SCH ×2 (09:46→21:56)
[2016-09-17] MEDS: LORATADINE 10 MG TAB PO SCH (09:47)
[2016-09-17] MEDS: IPRATROPIUM 0.03% NASAL SCH ×4 (09:48→17:20)
--- NOTE | 2016-09-17 10:50 | PD.CARD.PN ---
Subjective Subjective Remarks Pt breathing much better Objective Medications Administered Medications Medications (Trade) Dose Ordered Sig/Fortino Route PRN Reason Start Time Stop Time Status Last Admin Dose Admin Sodium Chloride (NS Flush) 2 ml BID IV FLUSH 09/15/16 21:00 09/17/16 09:46 Enoxaparin Sodium (Lovenox Inj) 40 mg Q24H SQ 09/15/16 17:00 09/15/16 16:49 Aspirin (Ecotrin Ec) 81 mg DAILY PO 09/16/16 09:00 09/17/16 09:46 Levothyroxine Sodium (Synthroid) 150 mcg DAILY@06 PO 09/16/16 06:00 09/17/16 06:03 Loratadine (Claritin) 10 mg DAILY PO 09/16/16 09:00 09/17/16 09:47 Montelukast Sodium (Singulair) 10 mg DAILY PO 09/16/16 09:00 09/17/16 09:46 Furosemide (Lasix Inj) 40 mg BID@18 IV PUSH 09/16/16 18:00 09/17/16 09:45 Patient Own Medication PT OWN MED: IPRATROPRIUM BROM... TID NASAL 09/16/16 18:00 09/17/16 09:48 Lisinopril (Prinivil) 2.5 mg DAILY PO 09/17/16 09:00 09/17/16 09:47 Metoprolol Tartrate (Lopressor) 12.5 mg Q12HR PO 09/16/16 21:00 09/17/16 09:46 Vital Signs / I&O Vital Signs Date Time Temp Pulse Resp B/P Pulse Ox O2 Delivery O2 Flow Rate FiO2 09/17/16 07:47 97.9 74 18 108/65 97 09/17/16 04:15 66 09/17/16 04:00 97.8 67 18 101/59 98 09/17/16 00:15 69 09/17/16 00:00 98.4 70 20 107/61 97 09/16/16 20:25 97 09/16/16 20:00 98.4 96 18 102/51 97 09/16/16 16:25 98.0 82 18 109/60 99 09/16/16 13:00 98.7 88 20 113/67 94 I/O 8/5/09/16/16 09/16/16 09/17/16 09/17/16 09/17/16 07:00 15:00 23:00 07:00 15:00 23:00 Intake Total 480 ml 1020 ml Output Total 800 ml 300 ml 1500 ml 1400 ml Balance -320 ml -300 ml -1500 ml -380 ml Intake Oral 480 ml 1020 ml Output Urine Total 800 ml 300 ml 1500 ml 1400 ml # Voids 2 4 # Bowel Movements 1 0 Physical Exam GENERAL: This is a well-nourished, well-developed patient, in no apparent distress. CARDIOVASCULAR: Regular rate and rhythm without murmurs, gallops, or rubs. RESPIRATORY: Clear to auscultation. Breath sounds equal bilaterally. No wheezes , rales, or rhonchi. GASTROINTESTINAL: Abdomen soft, non-tender, nondistended. Normal active bowel sounds MUSCULOSKELETAL: Extremities without clubbing, cyanosis, or edema. NEURO: Alert & Oriented x4 to person, place, time, situation. Moves all ext x4 Imaging Last Impressions Myocardial Perfusion Scan Nuc Med 09/16/16 0000 Signed Impressions: Service Date/Time: Friday, September 16, 2016 13:56 - CONCLUSION: 1. No stress-induced ischemia. 2. Apical and anterior lateral wall infarct. 3. Left ventricular dilatation and severe, diffuse hypokinesia. RISK CATEGORY: Moderate to high Darren Parrish MD CT Angiography 09/15/16 1315 Signed Impressions: Service Date/Time: Thursday, September 15, 2016 13:50 - CONCLUSION: 1. Negative for pulmonary emboli 2. Moderate congestive failure with small right pleural effusion and minimal consolidative changes left base. Fredy Torres MD FACR Chest X-Ray 09/15/16 1225 Signed Impressions: Service Date/Time: Thursday, September 15, 2016 12:41 - CONCLUSION: Increasing congestive failure. Fredy Torres MD FACR Assessment and Plan Problem List: (1) Systolic CHF Assessment and Plan: Currently compensated, will change to oral lasix (2) Acute exacerbation of CHF (congestive heart failure) (3) Cardiomyopathy Assessment and Plan: severe, LVEF ~ 15-20%, will change metoprolol to coreg and lisinopril to entresto; Dr. holder to cath tomorrow; will order life-vest (4) Left bundle branch block Problem Qualifiers (1) Systolic CHF: Qualified Code: I50.21 - Acute systolic congestive heart failure (2) Acute exacerbation of CHF (congestive heart failure): Qualified Code: I50.23 - Acute on chronic systolic congestive heart failure Ti Albert MD Sep 17, 2016 10:50
[2016-09-17] MEDS ORDERED: DEFIB EXTERNAL (11:55)
--- NOTE | 2016-09-17 12:11 | MB ---
cc: LOKESH VILLELA DO DATE OF CONSULTATION: 09/17/2016. REASON FOR CONSULTATION: Interventional cardiology consultation for new cardiomyopathy and consideration of heart catheterization. HISTORY OF PRESENT ILLNESS: Lindsay Kennedy is a pleasant 76-year-old female who presented to [facility] on September 15, 2016 due to shortness of breath. She states that for about the last month she has had worsening dyspnea on exertion. She denies chest pain with any of her episodes. She was given IV Lasix and diuresed and states that she can now be up and walking without feeling extremely dyspneic. She underwent an echocardiogram, which showed an ejection fraction of 15-20% with global hypokinesis. She then underwent a pharmacologic nuclear stress test which showed no stress-induced ischemia but apical and anterolateral wall infarct with left ventricular dilatation and decreased ejection fraction. On seeing her, she is currently without chest pain or shortness of breath. PAST MEDICAL HISTORY: 1. Gastroesophageal reflux disease 2. Hypothyroidism. PAST SURGICAL HISTORY: 1. Carpal tunnel release on both hands. 2. Tonsillectomy. 3. Hysterectomy. 4. Colon resection secondary to a polyp. 5. 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 ALLERGIES: LATEX. MEDICATIONS: 1. Fish oil 1200 milligrams daily. 2. Zantac 150 milligrams twice a day. 3. Singulair 10 milligrams daily. 4. Aspirin 81 milligrams daily. 5. Claritin 10 milligrams daily. 6. Synthroid 150 micrograms daily. FAMILY HISTORY: Positive for hereditary spherocytosis. Denies premature coronary artery disease or sudden cardiac within the family. SOCIAL HISTORY: The patient lives with her daughter. Denies tobacco, alcohol or drug abuse. REVIEW OF SYSTEMS Fourteen systems were reviewed including osteopathic with pertinent positives and negatives as above; otherwise negative. PHYSICAL EXAMINATION: VITAL SIGNS: Temperature 97.9, heart rate 74, blood pressure 108/65, respirations 18, pulse ox 97% on 2 liters. GENERAL: In general, the patient appears well and in no acute distress, alert, awake and oriented x3. HEAD, EYES, EARS, NOSE, THROAT: Extraocular muscles intact. Mucous membranes moist. NECK: The neck is supple. No JVD at 45 degrees. No carotid bruits heard bilaterally. Carotid upstroke is brisk in nature. HEART: Regular rate and rhythm. Positive first and second heart sounds with a 1/6 holosystolic murmur noted at the apex. LUNGS: The lungs have decreased breath sounds in bilateral bases with minimal rales but no overt wheezing or rhonchi. ABDOMEN: The abdomen is soft, nontender and nondistended. No organomegaly noted. EXTREMITIES: No clubbing, cyanosis or edema. Femoral and distal pulses are intact bilaterally. NEUROLOGIC: No focal deficits. SKIN: Warm, dry and intact. OSTEOPATHIC: Osteopathically, no kyphoscoliosis, lordosis or paraspinal tender points. LABORATORY WORK: Hemoglobin 14.2, hematocrit 39.9, platelets 362,000. Troponin negative x3. Potassium 3.3, BUN 19, creatinine 0.85. EKGS: Electrocardiogram (September 16, 2016 at 0025): Sinus rhythm, marked left axis deviation, left bundle branch block. IMPRESSION: 1. Acute systolic heart failure with an ejection fraction of 15-20%. 2. New onset cardiomyopathy, unsure if ischemic versus nonischemic. RECOMMENDATIONS: 1. Ms. Kennedy appears to have new onset cardiomyopathy with an ejection fraction of 15-20% from an unknown cause. 2. She did undergo a pharmacologic nuclear stress test which shows possible infarction in the apical anterolateral nguyen. 3. I recommend that she undergo a right and left heart catheterization so that we can see her heart pressures after diuresis but also to rule out possible areas of the heart which may be intervened on, which may overall help her cardiomyopathy. 4. If she has no significant disease, we will continue with medical management. 5. If she does has significant disease, then she will undergo a viability study, and from their decision on revascularization whether that be percutaneous intervention versus bypass. 6. Discussed with Dr. Albert that the patient will most likely need a LifeVest upon discharge. 7. She will need an echocardiogram in three months to reevaluate her ejection fraction and whether this is nonischemic or ischemic and at that time consideration of ICD therapy. 7. Risks, benefits and alternatives of cardiac catheterization were discussed extensively with the patient and she understands and would like to proceed with the plan for tomorrow. Thank you for allowing me to see Lindsay Kennedy. If there are any questions, please do not hesitate to call. Lokesh ODONNELL/RUDDY /11:31 AM /11:56 AM
[2016-09-17] MEDS: ENOXAPARIN SODIUM 40 MG/0.4 ML SYRINGE SQ SCH (17:14)
[2016-09-17] MEDS ORDERED: POTASSIUM CHLORIDE 20 MEQ CONTROLLED RELEASE TAB PO SCH (18:00)
[2016-09-17 21:12] LABS: MEAN CORPUSCULAR HGB CONC 37.3 % (32.0-36.0)
[2016-09-17] MEDS: CARVEDILOL 3.125 MG TAB PO SCH (21:55)
[2016-09-18] VITALS (25 sets, daily range): BP systolic 88–129; BP diastolic 51–76; PULSE 62–100; RESP 18–22; TEMP 97.9–98.6; O2SAT 96–97
[2016-09-18] MEDS: LEVOTHYROXINE SODIUM 150 MCG TAB PO SCH (06:02)
[2016-09-18] MEDS: SODIUM CHLORIDE 0.9% FLUSH 10 ML FLUSH IV FLUSH SCH ×2 (08:24→20:51)
[2016-09-18] MEDS: CARVEDILOL 3.125 MG TAB PO SCH ×2 (08:25→20:50)
[2016-09-18] MEDS: LORATADINE 10 MG TAB PO SCH (08:25)
[2016-09-18] MEDS: FAMOTIDINE 20 MG TAB PO SCH ×2 (08:25→20:50)
[2016-09-18] MEDS: ASPIRIN EC 81 MG TABEC PO SCH (08:25)
[2016-09-18] MEDS: DOCUSATE SODIUM 50 MG/SENNA 8.6 MG TAB PO SCH ×2 (08:26→20:50)
[2016-09-18] MEDS: MONTELUKAST SODIUM 10 MG TAB PO SCH (08:26)
[2016-09-18] MEDS: IPRATROPIUM 0.03% NASAL SCH ×3 (08:29→18:44)
[2016-09-18] MEDS: FUROSEMIDE 20 MG/2 ML VIAL IV PUSH SCH ×2 (08:33→20:48)
[2016-09-18 09:28] LABS: AUTOMATED NEUTROPHIL # 3.9 TH/MM3 (1.8-7.7); BASOPHIL % 0.4 % (0.0-2.0); EOSINOPHIL # 0.3 TH/MM3 (0-0.4); EOSINOPHIL % 4.3 % (0.0-4.0); HEMATOCRIT 38.1 % (35.0-46.0); LYMPH % 25.2 % (9.0-44.0); LYMPHOCYTE # 1.8 TH/MM3 (1.0-4.8); MEAN CELL VOLUME 89.1 FL (80.0-100.0); MEAN CORPUSCULAR HEMOGLOBIN 33.2 PG (27.0-34.0); MONO % 14.2 % (0.0-8.0); NEUT % 55.9 % (16.0-70.0); PLATELET COUNT 362 TH/MM3 (150-450); RED BLOOD COUNT 4.28 MIL/MM3 (4.00-5.30); RED CELL DISTRIBUTION WIDTH 14.5 % (11.6-17.2); WHITE BLOOD COUNT 7.1 TH/MM3 (4.0-11.0)
[2016-09-18 09:30] LABS: HEMO FLAGS AUTO DIFF
[2016-09-18 09:49] LABS: POTASSIUM 3.7 MEQ/L (3.5-5.1)
[2016-09-18] MEDS ORDERED: POTASSIUM CHLORIDE 20 MEQ CONTROLLED RELEASE TAB PO ONE ×2 (10:00→11:00)
[2016-09-18 10:10] LABS: ACANTHOCYTES 1+ (NORMAL); SPHEROCYTES 1+ (NORMAL)
[2016-09-18 10:11] LABS: SCAN/DIFF AUTO DIFF CONFIRMED
--- NOTE | 2016-09-18 10:12 | PD.CARD.PN ---
Subjective Subjective Remarks Pt had a substantial run of NSVT this am,. no sx. Objective Medications Administered Medications Medications (Trade) Dose Ordered Sig/Fortino Route PRN Reason Start Time Stop Time Status Last Admin Dose Admin Sodium Chloride (NS Flush) 2 ml BID IV FLUSH 09/15/16 21:00 09/18/16 08:24 Enoxaparin Sodium (Lovenox Inj) 40 mg Q24H SQ 09/15/16 17:00 09/17/16 17:14 Aspirin (Ecotrin Ec) 81 mg DAILY PO 09/16/16 09:00 09/18/16 08:25 Levothyroxine Sodium (Synthroid) 150 mcg DAILY@06 PO 09/16/16 06:00 09/18/16 06:02 Loratadine (Claritin) 10 mg DAILY PO 09/16/16 09:00 09/18/16 08:25 Montelukast Sodium (Singulair) 10 mg DAILY PO 09/16/16 09:00 09/18/16 08:26 Furosemide (Lasix Inj) 40 mg BID@,18 IV PUSH 09/16/16 18:00 09/18/16 08:33 Patient Own Medication PT OWN MED: IPRATROPRIUM BROM... TID NASAL 09/16/16 18:00 09/18/16 08:29 Famotidine (Pepcid) 10 mg BID PO 09/17/16 21:00 09/18/16 08:25 Carvedilol (Coreg) 3.125 mg Q12HR PO 09/17/16 21:00 09/18/16 08:25 Vital Signs / I&O Vital Signs Date Time Temp Pulse Resp B/P Pulse Ox O2 Delivery O2 Flow Rate FiO2 09/18/16 08:00 80 09/18/16 07:59 98.0 80 18 121/73 97 09/18/16 07:00 76 09/18/16 06:00 64 09/18/16 04:00 62 09/18/16 04:00 98.2 62 18 88/51 96 09/18/16 03:00 64 09/18/16 02:00 65 09/18/16 01:00 64 09/18/16 00:00 70 09/18/16 00:00 98.0 74 22 96/55 96 09/17/16 23:00 69 09/17/16 22:00 71 09/17/16 21:00 70 09/17/16 20:00 98.3 121 20 101/55 96 09/17/16 20:00 99 09/17/16 19:00 101 09/17/16 18:21 76 09/17/16 15:42 97.7 80 16 108/58 98 09/17/16 11:34 97.9 73 18 95/51 96 I/O 09/17/16 09/17/16 09/17/16 09/18/16 09/18/16 09/18/16 06:59 14:59 22:59 06:59 14:59 22:59 Intake Total 1020 ml 440 ml 360 ml Output Total 1400 ml 750 ml 500 ml 1400 ml Balance -380 ml -750 ml -60 ml -1040 ml Intake Oral 1020 ml 440 ml 360 ml Output Urine Total 1400 ml 750 ml 500 ml 1400 ml # Voids 4 # Bowel Movements 0 Physical Exam GENERAL: This is a well-nourished, well-developed patient, in no apparent distress. CARDIOVASCULAR: Regular rate and rhythm without murmurs, gallops, or rubs. RESPIRATORY: Clear to auscultation. Breath sounds equal bilaterally. No wheezes , rales, or rhonchi. GASTROINTESTINAL: Abdomen soft, non-tender, nondistended. Normal active bowel sounds MUSCULOSKELETAL: Extremities without clubbing, cyanosis, or edema. NEURO: Alert & Oriented x4 to person, place, time, situation. Moves all ext x4 Laboratory Laboratory Tests Test 09/18/16 08:06 White Blood Count 7.1 TH/MM3 Red Blood Count 4.28 MIL/MM3 Hemoglobin 14.2 GM/DL Hematocrit 38.1 % Mean Corpuscular Volume 89.1 FL Mean Corpuscular Hemoglobin 33.2 PG Mean Corpuscular Hemoglobin 37.3 % Concent Red Cell Distribution Width 14.5 % Platelet Count 362 TH/MM3 Mean Platelet Volume 8.2 FL Neutrophils (%) (Auto) 55.9 % Lymphocytes (%) (Auto) 25.2 % Monocytes (%) (Auto) 14.2 % Eosinophils (%) (Auto) 4.3 % Basophils (%) (Auto) 0.4 % Neutrophils # (Auto) 3.9 TH/MM3 Lymphocytes # (Auto) 1.8 TH/MM3 Monocytes # (Auto) 1.0 TH/MM3 Eosinophils # (Auto) 0.3 TH/MM3 Basophils # (Auto) 0.0 TH/MM3 CBC Comment AUTO DIFF Sodium Level 139 MEQ/L Potassium Level 3.7 MEQ/L Chloride Level 103 MEQ/L Carbon Dioxide Level 26.0 MEQ/L Anion Gap 10 MEQ/L Blood Urea Nitrogen 29 MG/DL Creatinine 0.95 MG/DL Estimat Glomerular Filtration 57 ML/MIN Rate Random Glucose 87 MG/DL Calcium Level 8.5 MG/DL Imaging Last Impressions Myocardial Perfusion Scan Nuc Med 09/16/16 0000 Signed Impressions: Service Date/Time: Friday, September 16, 2016 13:56 - CONCLUSION: 1. No stress-induced ischemia. 2. Apical and anterior lateral wall infarct. 3. Left ventricular dilatation and severe, diffuse hypokinesia. RISK CATEGORY: Moderate to high Darren Parrish MD CT Angiography 09/15/16 1315 Signed Impressions: Service Date/Time: Thursday, September 15, 2016 13:50 - CONCLUSION: 1. Negative for pulmonary emboli 2. Moderate congestive failure with small right pleural effusion and minimal consolidative changes left base. Fredy Torres MD FACR Chest X-Ray 09/15/16 1225 Signed Impressions: Service Date/Time: Thursday, September 15, 2016 12:41 - CONCLUSION: Increasing congestive failure. Fredy Torres MD FACR Assessment and Plan Problem List: (1) Systolic CHF Assessment and Plan: Currently compensated, on oral lasix (2) Acute exacerbation of CHF (congestive heart failure) (3) Cardiomyopathy Assessment and Plan: severe, LVEF ~ 15-20%, will change metoprolol to coreg and lisinopril to entresto; Dr. holder to cath today; will order life-vest (4) Left bundle branch block (5) NSVT (nonsustained ventricular tachycardia) Assessment and Plan: on coreg; life-vest ordered. Problem Qualifiers (1) Systolic CHF: Qualified Code: I50.21 - Acute systolic congestive heart failure (2) Acute exacerbation of CHF (congestive heart failure): Qualified Code: I50.23 - Acute on chronic systolic congestive heart failure Ti Albert MD Sep 18, 2016 10:12
[2016-09-18] MEDS ORDERED: HEPARIN-NS/PF INJ 500 ML ONE (13:04)
[2016-09-18] MEDS ORDERED: MIDAZOLAM HCL 2 MG/2 ML VIAL ONE (13:08)
--- NOTE | 2016-09-18 14:19 | CATHPROC ---
U[facility]idy HIS Report Study Information Study Number Admission Scheduled Start Study Start [id number] Sep 17 2016 10:29AM 09/18/2016 Sep 18 2016 12:56PM [place] Service Cardiac Catheterization Admit Source Facility Department Other [facility] - [employer] Operator Physician and Clinical Staff Initial Lokesh Salmeron Grinder Set Up Operator Thread ToolElie Villanueva,IVONE Grinder Set Up Operator Thread Tool Bianca Lugo,IVONE Recorder Marcie, Gerard,RT(R) Scrub Calli Remy,MUNIRA TECH2 Procedures Performed Procedure Location (Site) Vessel Name Coronary Angiograms LCA Left Coronary Coronary Angiograms RCA Right Coronary Equipment Time Case Managers Description Size Mfg Part Number Used/Scraped CATHETER, FR7 SWAN DEZ [id number] 13:07 EM GODINEZ FR 7 Used LATEX FREE *[id number] TRANSDUCER, TRUWAVE [id number] 13:09 EM GODINEZ * Used W/STOCKCOCK *[id number] TRANSDUCER, TRUWAVE [id number] 13:09 EM GODINEZ * Used W/STOCKCOCK *[id number]- INTRODUCER SET, 13:23 [employer] FR 5 SC-NT-U-SST Used MICROPUNCTURE, STIFFENED *[id number] *[id number] 534-521T *[id number] 13:09 [employer] INDUSTRIES PACK, CCL CUSTOM * Used *[id number] 13:09 [email or web address] MEDICAL WIRE, 3MMJ .035 180CM 180CM Used *[id number] 13:09 NAMIC MANIFOLD, 4 PORT * Used *[id number] 13:09 [employer] OMNIPAQUE, 350 MG, 150ML 150ML [id number] Used [id number] 13:09 [employer] BL[employer]ET,WARM AIR CCL * Used *[id number] 13:23 TERUMO MEDICAL SHEATH, FR5 TERUMO (10CM) FR 5 Used *[id number] 13:07 [employer]UMO MEDICAL SHEATH, FR7 TERUMO (10CM) FR 7 Used *[id number] Equipment Model, Serial, Lot Number and Expiration Data Description Model Number Serial Number Lot Number Expiration Date INTRODUCER SET, [id number] 08-19-2019 MICROPUNCTURE, STIFFENED History: Risk Factors Family History of Hypertension Dyslipidemia Previous DC Previous Heart Failure Premature CAD No No No No Yes Prior Valve Prior PCI Prior CABG Surgery No No No Cerebrovascular Peripheral Artery Chronic Lung On Dialysis Diabetes Disease Disease Disease No No No No No History: Stress Tests Stress or Imaging Studies Performed Yes Standard Exercise Stress Test No Stress Echo No Stress Test SPECT Stress Test SPECT Result Stress Test SPECT Ischemia Risk/Extent Yes Positive High Stress Test CMR No Cardiac CTA Coronary Calcium Score No No History: Other Current Smoker No Labs Hgb (g/dl) Hct (%) WBC (l/cumm) Platelets (thousands) 11.60-17.00 35.00-51.00 4.00-11.00 150.00-450.00 14.2 39.9 7.7 362 Glucose (mg/dl) BUN (mg/dl) Creatinine (mg/dl) BUN:Creatinine (1:x) 74.00-106.00 7.00-18.00 0.50-1.30 10.00-20.00 89 19 0.8 23.8 Na (meq/l) K (meq/l) 136.00-145.00 3.50-5.10 140 3.3 Troponin I (ng/ml) CPK-MB (ng/ML) 0.02-0.05 0.50-3.60 0.02 Not Drawn Medication Medication Total Dose (Bolus/Oral) Medication Total Dosage/Unit 1% XYLOCAINE 20 mL FENTANYL 25 mcg Medications (Bolus/Oral) Medication Time Given Dosage/Unit Administered By Reason 1% XYLOCAINE 09/18/2016 1:32:00 PM 20 mL Lokesh Murcia 20 mL 1% XYLOCAINE given in lab by Lokesh Murcia in Right Groin via Subcutaneous. FENTANYL 09/18/2016 1:33:03 PM 25 mcg Bianca Lugo 25 mcg FENTANYL given in lab by Bianca Lugo, RN in Left Antecubital via Peripheral IV. Medication (Drip) Medication Time Given Dosage/Unit Concentration/Unit Diluent (ml) Solution IV Solutions 09/18/2016 1:01:13 PM 0 mL (IV) 500 NaCl .9 Patient arrived on IV Solutions in Left Antecubital via Peripheral IV. Pump/Drip Flow = 20 ml/hr usin g NaCl .9. Initial Case Assessment Cardiovascular HR Rhythm Chest Pain 89 sr 0 Edema Present Skin color Skin None Normal Warm Dry Circulatory - Right Pulses Dorsalis Pedis Femoral Radial 2 2 2 Scale (0,1,2,3,4,d) Scale (0,1,2,3,4,d) Neurological State Oriented to time-place- Alert Moves all extremities person Respiration - General Respiration Rate SpO2 (%) O2 (lpm) (B/min) 18 95 0 Final Case Assessment Cardiovascular HR Rhythm NIBP Chest Pain 70 sr 105/61 0 Edema Present Skin color Skin None Normal Warm Dry Circulatory - Right Pulses Dorsalis Pedis Femoral Radial 2 2 2 Scale (0,1,2,3,4,d) Scale (0,1,2,3,4,d) Neurological State Oriented to time-place- Alert Moves all extremities person Respiration - General Respiration Rate SpO2 (%) O2 (lpm) (B/min) 18 94 0 Chronological Log Time Study Chronological Log 12:56:49 Patient arrived via Bed. Positive Allens test performed by Elie Davis. 12:56:50 Patient Name, D.O.B, / Armband Verified By R.N. 12:56:52 Consent signed by the physician and the patient and verified by the Petroleum Terminal Plant Operator staff. 12:56:53 Pre-op and post- op instructions given; patient acknowledges understanding of instructions. 12:59:38 Verbal Stimulation=2 Physical Stimulation=2 Airway=2 Respiration=2 TOTAL=8. (0=absent, 1=li mited, 2=present) 12:59:48 Presedation assessment performed by Pet[employer] Operator RN. 12:59:50 Patient has been NPO for More than 6Hrs. 12:59:52 Skin Breakdown-none present per patient. 13:00:14 A # 20 IV was noted in the Antecubital (left). Grade = 0 13:01:13 Patient arrived on IV Solutions in Left Antecubital via Peripheral IV. Pump/Drip Flow = 20 ml/hr using NaCl .9. 13:01:33 History and physical on the chart or being dictated. Vitals capture started with the following parameters, Patient=Adult, Interval=5 min, Initial Pr kdjqgw=141 mmHg, 13:01:35 Deflation Rate=5 mmHg, Cuff placed on Right Arm Assessment: Initial Case, HR=89 BPM, Rhythm=sr, Chest Pain=0, Edema=None, Color=Normal, Skin = Warm, Dry Right Pulses: Michael Ped=2, Femoral=2, Radial=2 13:02:07 Neurological: State=Alert, Ox3, CHRIS Respiration: Resp=18 B/min, SpO2=95 %, O2=0 lpm 13:02:14 Reference ECG taken Vitals capture started with the following parameters, Patient=Adult, Interval=5 min, Initial Pr xloump=805 mmHg, 13:03:59 Deflation Rate=5 mmHg, Cuff placed on Right Arm 13:04:37 HR=90 bpm, CKYD=694/76 mmhg, SpO2=95.0 %, Resp=17 B/min, Tineo=2 13:08:21 Right groin and right radial prepped with 2% chlorhexidine, and with a 3 min. waiting time. 13:09:28 HR=87 bpm, RPAT=161/83 mmhg, SpO2=98.0 %, Resp=13 B/min, Tineo=2 13:14:31 HR=86 bpm, XKLU=467/71 mmhg, SpO2=97.0 %, Resp=28 B/min, Tineo=2 13:19:32 HR=81 bpm, EITU=185/74 mmhg, SpO2=96.0 %, Resp=34 B/min, Tineo=2 13:21:10 MD arrived. 13:24:33 HR=79 bpm, HOHL=961/71 mmhg, Resp=39 B/min, Tineo=2 13:29:34 HR=83 bpm, HWXS=693/71 mmhg, SpO2=99.0 %, Resp=11 B/min, Tineo=2 Time Out. Correct patient, correct procedure,correct physician, ,power injector not loaded with contrast with surgical 13:30:55 team present. Time Out Concurred by MD, individual staff and FEED MILL TENDER in procedure. Not Loaded at t his time. 13:31:48 Presedation re-assessment performed by Petroleum Terminal Plant Operator RN. 13:31:50 Case Start 13:31:51 Verbal Stimulation=2 Physical Stimulation=2 Airway=2 Respiration=2 TOTAL=8. (0=absent, 1=li mited, 2=present) 13:32:00 20 mL 1% XYLOCAINE given in lab by Lokesh Murcia in Right Groin via Subcutaneous. 13:33:03 25 mcg FENTANYL given in lab by Bianca Lugo, RN in Left Antecubital via Peripheral IV. 13:34:35 HR=79 bpm, DXNR=995/70 mmhg, SpO2=98.0 %, Resp=18 B/min, Tineo=2 13:36:15 Access site was Right Femoral Artery. A INTRODUCER SET, MICROPUNCTURE, STIFFENED FR 5 was advanced into the Fem Art (right) using the 13:36:35 Percutaneous technique. A SHEATH, FR5 TERUMO (10CM) FR 5 was exchanged in the Fem Art (right). This was necessary in or joel to 13:37:41 accomodate a larger catheter. 13:39:36 HR=70 bpm, YFJD=495/69 mmhg, SpO2=93.0 %, Resp=18 B/min, Tineo=2 13:40:10 Access site was Right Femoral Vein. 13:40:17 A SHEATH, FR7 TERUMO (10CM) FR 7 was advanced into the Fem Vein (right) using the Percutane ous technique. 13:42:24 Pressure channel 1 zeroed. 13:43:44 An injection in the Fem Art (right) was made through the SHEATH, FR5 TERUMO (10CM) FR 5. 13:44:37 HR=67 bpm, KVVA=093/58 mmhg, SpO2=96.0 %, Resp=12 B/min, Tineo=2 13:44:44 A CATHETER, FR7 SWAN DEZ LATEX FREE FR 7 was inserted via Fem Vein (left) Recorded Pressure: PCW, HR=68, Condition=Condition 1 13:48:17 (Pulmonary Capillary Wedge) PCW 13:49:34 HR=67 bpm, NIBP=99/57 mmhg, Resp=11 B/min, Tineo=2 Recorded Pressure: MPA, HR=69, Condition=Condition 1 13:51:06 (Main Pulmonary Artery) MPA 31/08/12 Recorded Pressure: RV, HR=67, Condition=Condition 1 13:54:04 (Right Ventricle) RV Recorded Pressure: RA, HR=66, Condition=Condition 1 13:54:34 (Right Atrium) RA 13:54:35 HR=67 bpm, NIBP=99/56 mmhg, Resp=11 B/min, Tineo=2 13:54:47 [place] Dez Catheter Removed A JL 4.0 INFINITI CATHETER FR 5 was advanced over a wire. OMNIPAQUE, 350 MG, 150ML 150ML was us ed for 13:55:15 injections. 13:55:25 Saturation: Site=PA (Pulmonary Artery) , O2=77.9 %, Hgb=14.2 gm/dl, Condition=Condition 1. Used in calculation. 13:56:16 Saturation: Site=FA (Femoral Artery) , O2=95.5 %, Hgb=14.2 gm/dl, Condition=Condition 1. Us ed in calculation. 13:56:28 Saturation: Site=RV (Right Ventricle) , O2=76.5 %, Hgb=14.2 gm/dl, Condition=Condition 1. U sed in calculation. Recorded Pressure: LV, HR=67, Condition=Condition 1 13:57:50 (Left Ventricle) LV 95/0/9 Recorded Pressure: LV, Ao, HR=68, Condition=Condition 1 13:58:09 (Left Ventricle) LV 92/9/5, (Aorta) Ao 92/48/66 Recorded Pressure: Ao, HR=73, Condition=Condition 1 13:58:29 (Aorta) Ao 93/51/68 A JR 4.0 INFINITI CATHETER FR 5 was advanced over a wire. OMNIPAQUE, 350 MG, 150ML 150ML was us ed for 13:58:35 injections. 13:58:42 The RCA was injected and visualized at various angles. OMNIPAQUE, 350 MG, 150ML 150ML used . 13:59:34 HR=68 bpm, NIBP=99/58 mmhg, Resp=15 B/min 14:01:50 Catheter was removed A JL 4.0 INFINITI CATHETER FR 5 was advanced over a wire. OMNIPAQUE, 350 MG, 150ML 150ML was us ed for 14:01:51 injections. 14:01:57 The LCA was injected and visualized at various angles. OMNIPAQUE, 350 MG, 150ML 150ML used . 14:04:35 HR=67 bpm, PITL=506/56 mmhg, Resp=13 B/min, Tineo=2 14:06:19 Catheter was removed 14:07:26 Case End Assessment: Final Case, HR=70 BPM, Rhythm=sr, QWCK=974/61 mmhg, Chest Pain=0, Edema=None, Color =Normal, Skin = Warm, Dry 14:08:47 Right Pulses: Michael Ped=2, Femoral=2, Radial=2 Neurological: State=Alert, Ox3, CHRIS Respiration: Resp=18 B/min, SpO2=94 %, O2=0 lpm 14:09:36 HR=69 bpm, JJWR=656/61 mmhg, SpO2=93.0 %, Resp=21 B/min, Tineo=2 14:09:46 Catheter(s) removed without difficulty 14:09:51 Sterile dressing applied to site 14:09:53 No case complications noted. 14:09:55 Cine recording checked. 14:09:57 Bedside Report will be given. 14:10:01 Contrast Scanned 14:14:21 Patient moved to [facility] End Study - Contrast Media Used In Study Contrast Total Opened (mL) Total Used (mL) Total Wasted (mL) Omnipaque 45 45 0 End Study - Maximum Contrast Load Max Contrast Load (mL) 312.5 End Study - Radiation Exposure Fluoro Time (minutes) 4.5 End Study - Patient Disposition Complications Transferred To Telemetry Bed
[2016-09-18] MEDS ORDERED: ATROPINE SULFATE 1 MG/10 ML SYRINGE ONE (14:24)
[2016-09-18] MEDS ORDERED: EPINEPHrine HCL (1:10,000) 1 MG/10 ML SYRINGE ONE (14:24)
[2016-09-18] MEDS ORDERED: SODIUM CHLOR 0.9% 250 ML INJ 250 ML IV PRN (14:30)
[2016-09-18] MEDS ORDERED: ATROPINE SULFATE 1 MG/ML VIAL IV PRN (14:30)
--- NOTE | 2016-09-18 14:39 | PD.CARD.PN ---
Subjective Subjective Remarks No events overnight Today had a run of NSVT No chest pain/SOB Post-cath doing well Objective Medications Current Medications Medications (Trade) Dose Ordered Sig/Fortino Route Start Time Stop Time Status Last Admin (NS Flush) 2 ml UNSCH PRN IV FLUSH 09/15/16 15:00 (NS Flush) 2 ml BID IV FLUSH 09/15/16 21:00 09/18/16 08:24 (Tylenol) 650 mg Q4H PRN PO 09/15/16 15:00 (Zofran Inj) 4 mg Q6H PRN IVP 09/15/16 15:00 (Lovenox Inj) 40 mg Q24H SQ 09/15/16 17:00 Hold 09/17/16 17:14 (Narcan Inj) 0.4 mg UNSCH PRN IV 09/15/16 15:00 ([place]inia-Colace) 1 tab BID PO 09/15/16 21:00 (Milk Of Magnesia Liq) 30 ml Q12H PRN PO 09/15/16 15:00 (Senokot) 17.2 mg Q12H PRN PO 09/15/16 15:00 (Dulcolax Supp) 10 mg DAILY PRN RECTAL 09/15/16 15:00 (Lactulose Liq) 30 ml DAILY PRN PO 09/15/16 15:00 (Ecotrin Ec) 81 mg DAILY PO 09/16/16 09:00 09/18/16 08:25 (Synthroid) 150 mcg DAILY@06 PO 09/16/16 06:00 09/18/16 06:02 (Claritin) 10 mg DAILY PO 09/16/16 09:00 09/18/16 08:25 (Singulair) 10 mg DAILY PO 09/16/16 09:00 09/18/16 08:26 (Lasix Inj) 40 mg BID@09,18 IV PUSH 09/16/16 18:00 09/18/16 08:33 Patient Own Medication PT OWN MED: IPRATROPRIUM BROM... TID NASAL 09/16/16 18:00 09/18/16 08:29 (Pill Splitter) 1 ea UNSCH PRN OTHER 09/16/16 21:00 (Pepcid) 10 mg BID PO 09/17/16 21:00 09/18/16 08:25 (Entresto 24-26 Mg) 1 tab BID PO 09/18/16 21:00 (Coreg) 3.125 mg Q12HR PO 09/17/16 21:00 09/18/16 08:25 Atropine Sulfate 0.5 mg 0.5 mg UNSCH PRN IV 09/18/16 14:30 (NS 250 ml Inj) 250 ml @ 500 mls/hr ONCE PRN IV 09/18/16 14:30 09/19/16 14:29 Vital Signs / I&O Vital Signs Date Time Temp Pulse Resp B/P Pulse Ox O2 Delivery O2 Flow Rate FiO2 09/18/16 13:00 68 09/18/16 12:00 100 09/18/16 11:50 97.9 99 18 96/63 96 09/18/16 11:00 76 09/18/16 10:00 86 09/18/16 09:00 88 09/18/16 08:00 80 09/18/16 07:59 98.0 80 18 121/73 97 09/18/16 07:00 76 09/18/16 06:00 64 09/18/16 04:00 62 09/18/16 04:00 98.2 62 18 88/51 96 09/18/16 03:00 64 09/18/16 02:00 65 09/18/16 01:00 64 09/18/16 00:00 70 09/18/16 00:00 98.0 74 22 96/55 96 09/17/16 23:00 69 09/17/16 22:00 71 09/17/16 21:00 70 09/17/16 20:00 98.3 121 20 101/55 96 09/17/16 20:00 99 09/17/16 19:00 101 09/17/16 18:21 76 09/17/16 15:42 97.7 80 16 108/58 98 I/O 09/17/16 09/17/16 09/17/16 09/18/16 09/18/16 09/18/16 07:00 15:00 23:00 07:00 15:00 23:00 Intake Total 1020 ml 440 ml 360 ml Output Total 1400 ml 750 ml 500 ml 1400 ml Balance -380 ml -750 ml -60 ml -1040 ml Intake Oral 1020 ml 440 ml 360 ml Output Urine Total 1400 ml 750 ml 500 ml 1400 ml # Voids 4 # Bowel Movements 0 Physical Exam GENERAL: NAD, AAOx3 SKIN: Warm and dry. HEAD: Atraumatic. Normocephalic. EYES: Pupils equal and round. No scleral icterus. No injection or drainage. ENT: No nasal bleeding or discharge. Mucous membranes pink and moist. NECK: Trachea midline. No JVD. CARDIOVASCULAR: Regular rate and rhythm. RESPIRATORY: No accessory muscle use. Clear to auscultation. Breath sounds equal bilaterally. GASTROINTESTINAL: Abdomen soft, non-tender, nondistended. Hepatic and splenic margins not palpable. MUSCULOSKELETAL: Extremities without clubbing, cyanosis, or edema. No obvious deformities. NEUROLOGICAL: Awake and alert. No obvious cranial nerve deficits. Motor grossly within normal limits. Five out of 5 muscle strength in the arms and legs. Normal speech. PSYCHIATRIC: Appropriate mood and affect; insight and judgment normal. Laboratory Laboratory Tests Test 09/18/16 08:06 White Blood Count 7.1 TH/MM3 Red Blood Count 4.28 MIL/MM3 Hemoglobin 14.2 GM/DL Hematocrit 38.1 % Mean Corpuscular Volume 89.1 FL Mean Corpuscular Hemoglobin 33.2 PG Mean Corpuscular Hemoglobin 37.3 % Concent Red Cell Distribution Width 14.5 % Platelet Count 362 TH/MM3 Mean Platelet Volume 8.2 FL Neutrophils (%) (Auto) 55.9 % Lymphocytes (%) (Auto) 25.2 % Monocytes (%) (Auto) 14.2 % Eosinophils (%) (Auto) 4.3 % Basophils (%) (Auto) 0.4 % Neutrophils # (Auto) 3.9 TH/MM3 Lymphocytes # (Auto) 1.8 TH/MM3 Monocytes # (Auto) 1.0 TH/MM3 Eosinophils # (Auto) 0.3 TH/MM3 Basophils # (Auto) 0.0 TH/MM3 CBC Comment AUTO DIFF Differential Comment AUTO DIFF CONFIRMED Spherocytes 1+ Acanthocytes 1+ Sodium Level 139 MEQ/L Potassium Level 3.7 MEQ/L Chloride Level 103 MEQ/L Carbon Dioxide Level 26.0 MEQ/L Anion Gap 10 MEQ/L Blood Urea Nitrogen 29 MG/DL Creatinine 0.95 MG/DL Estimat Glomerular Filtration 57 ML/MIN Rate Random Glucose 87 MG/DL Calcium Level 8.5 MG/DL Assessment and Plan Problem List: (1) Systolic CHF (2) Acute exacerbation of CHF (congestive heart failure) (3) Cardiomyopathy (4) Left bundle branch block (5) NSVT (nonsustained ventricular tachycardia) Assessment and Plan 1) No significant CAD 2) NICM EF 15% 3) Pressures down, well compensated 4) NSVT on Coreg Lifevest ordered 5) Echo in 3 months to see if resolution of cardiomyopathy Problem Qualifiers (1) Systolic CHF: Qualified Code: I50.21 - Acute systolic congestive heart failure (2) Acute exacerbation of CHF (congestive heart failure): Qualified Code: I50.23 - Acute on chronic systolic congestive heart failure Lokesh Murcia DO Sep 18, 2016 14:39
[2016-09-18] MEDS ORDERED: IOHEXOL 350 MG/ML 50 ML BTL (for Cath Lab) OTHER ONE (16:04)
--- NOTE | 2016-09-18 19:40 | HHI.PR ---
Subjective Interval History Alert, oriented, denies complaints, had cardiac catheterization today Review of Systems Constitutional Constitutional Remarks 10 systems reviewed and otherwise negative Vitals/Results Intake & Output 09/17/16 09/17/16 09/18/16 15:00 23:00 07:00 Intake Total 440 ml 360 ml Output Total 750 ml 500 ml 1400 ml Balance -750 ml -60 ml -1040 ml Intake Oral 440 ml 360 ml Output Urine Total 750 ml 500 ml 1400 ml Vital Signs Vital Signs Date Time Temp Pulse Resp B/P Pulse Ox O2 Delivery O2 Flow Rate FiO2 09/18/16 18:00 80 09/18/16 17:00 78 09/18/16 16:00 76 09/18/16 15:00 98.1 71 18 113/56 96 09/18/16 15:00 74 09/18/16 14:30 88 09/18/16 13:00 68 09/18/16 12:00 100 09/18/16 11:50 97.9 99 18 96/63 96 09/18/16 11:00 76 09/18/16 10:00 86 09/18/16 09:00 88 09/18/16 08:00 80 09/18/16 07:59 98.0 80 18 121/73 97 09/18/16 07:00 76 09/18/16 06:00 64 09/18/16 04:00 62 09/18/16 04:00 98.2 62 18 88/51 96 09/18/16 03:00 64 09/18/16 02:00 65 09/18/16 01:00 64 09/18/16 00:00 70 09/18/16 00:00 98.0 74 22 96/55 96 09/17/16 23:00 69 09/17/16 22:00 71 09/17/16 21:00 70 09/17/16 20:00 98.3 121 20 101/55 96 09/17/16 20:00 99 CBC/BMP: 09/18/16 0806 09/18/16 0806 Lab Results Laboratory Tests Test 09/18/16 08:06 White Blood Count 7.1 TH/MM3 Red Blood Count 4.28 MIL/MM3 Hemoglobin 14.2 GM/DL Hematocrit 38.1 % Mean Corpuscular Volume 89.1 FL Mean Corpuscular Hemoglobin 33.2 PG Mean Corpuscular Hemoglobin 37.3 % Concent Red Cell Distribution Width 14.5 % Platelet Count 362 TH/MM3 Mean Platelet Volume 8.2 FL Neutrophils (%) (Auto) 55.9 % Lymphocytes (%) (Auto) 25.2 % Monocytes (%) (Auto) 14.2 % Eosinophils (%) (Auto) 4.3 % Basophils (%) (Auto) 0.4 % Neutrophils # (Auto) 3.9 TH/MM3 Lymphocytes # (Auto) 1.8 TH/MM3 Monocytes # (Auto) 1.0 TH/MM3 Eosinophils # (Auto) 0.3 TH/MM3 Basophils # (Auto) 0.0 TH/MM3 CBC Comment AUTO DIFF Differential Comment AUTO DIFF CONFIRMED Spherocytes 1+ Acanthocytes 1+ Sodium Level 139 MEQ/L Potassium Level 3.7 MEQ/L Chloride Level 103 MEQ/L Carbon Dioxide Level 26.0 MEQ/L Anion Gap 10 MEQ/L Blood Urea Nitrogen 29 MG/DL Creatinine 0.95 MG/DL Estimat Glomerular Filtration 57 ML/MIN Rate Random Glucose 87 MG/DL Calcium Level 8.5 MG/DL Physical Exam General General Appearance: Well Developed, Well Nourished, No Acute Distress, Comfortable Eyes Eye Exam: Pupils Equal, Pupils Reactive Ears & Nose Ears & Nose Exam: Nasal Mucosa Jennette Throat Throat Exam: Oral Mucosa Jennette & Moist Neck Neck Exam: Neck Supple, Trachea Midline Pulmonary Resp Exam: Crackles (faint, improved) Cardiology CV Exam: Regular, Good Perfusion Gastrointestinal/Abdomen GI Exam: Soft, Non-Tender, Bowel Sounds Present, Non-Distended Musculoskeletal MS Exam: Normal Tone Integumentary Skin Exam: Warm, Intact Extremeties Extremities Exam: No Edema, Pedal Pulses Palpable Neurologic Neuro Exam: Alert, Awake, Oriented, Speech Clear, Moving All Extremities, No Focal Deficits VTE Prophylaxis VTE Prophylaxis Meds: Lovenox Assessment/Plan Problem List: (1) Acute exacerbation of CHF (congestive heart failure) (2) Allergic rhinitis (3) Hypothyroid (4) Left bundle branch block Assessment/Plan Assessment Acute systolic heart failure, symptoms improved Ejection fraction 20% Nonischemic cardiomyopathy Status post cardiac catheterization on 09/28/16 Underweight status History of hypothyroidism and allergic rhinitis Management Continue diuretics LifeVest to be installed tomorrow Ambulate as tolerated Possible discharge home tomorrow Discussed with patient Discussed with nurse Discussed with Dr. Murcia 35 minutes Problem Qualifiers (1) Acute exacerbation of CHF (congestive heart failure): Qualified Code: I50.23 - Acute on chronic systolic congestive heart failure (2) Allergic rhinitis: (3) Hypothyroid: Qualified Code: E03.9 - Hypothyroidism, unspecified type Karli Stevenson MD Sep 18, 2016 19:40
[2016-09-18] MEDS: SACUBITRIL/VALSARTAN 24 MG-26 MG TAB PO SCH (21:36)
[2016-09-19] VITALS (32 sets, daily range): BP systolic 70–106; BP diastolic 36–70; PULSE 70–102; RESP 12–20; TEMP 97.5–98.3; O2SAT 9–97
[2016-09-19] MEDS: LEVOTHYROXINE SODIUM 150 MCG TAB PO SCH (06:18)
[2016-09-19 06:40] LABS: AUTOMATED NEUTROPHIL # 5.6 TH/MM3 (1.8-7.7); BASOPHIL # 0.1 TH/MM3 (0-0.2); EOSINOPHIL # 0.2 TH/MM3 (0-0.4); EOSINOPHIL % 2.3 % (0.0-4.0); HEMATOCRIT 41.3 % (35.0-46.0); HEMO FLAGS DIFF FINAL; LYMPH % 20.5 % (9.0-44.0); LYMPHOCYTE # 1.8 TH/MM3 (1.0-4.8); MEAN CORPUSCULAR HEMOGLOBIN 32.4 PG (27.0-34.0); MEAN CORPUSCULAR HGB CONC 35.6 % (32.0-36.0); MONO % 13.8 % (0.0-8.0); NEUT % 62.4 % (16.0-70.0); PLATELET COUNT 395 TH/MM3 (150-450); RED BLOOD COUNT 4.53 MIL/MM3 (4.00-5.30); RED CELL DISTRIBUTION WIDTH 15.1 % (11.6-17.2); WHITE BLOOD COUNT 8.9 TH/MM3 (4.0-11.0)
[2016-09-19 07:27] LABS: BICARBONATE 27.6 MEQ/L (21.0-32.0); POTASSIUM 3.3 MEQ/L (3.5-5.1)
[2016-09-19] MEDS: SODIUM CHLORIDE 0.9% FLUSH 10 ML FLUSH IV FLUSH SCH ×2 (09:39→20:16)
[2016-09-19] MEDS: IPRATROPIUM 0.03% NASAL SCH ×3 (09:40→18:00)
[2016-09-19] MEDS: FUROSEMIDE 20 MG/2 ML VIAL IV PUSH SCH (09:40)
[2016-09-19] MEDS: FAMOTIDINE 20 MG TAB PO SCH ×2 (09:41→20:16)
[2016-09-19] MEDS: LORATADINE 10 MG TAB PO SCH (09:41)
[2016-09-19] MEDS: SACUBITRIL/VALSARTAN 24 MG-26 MG TAB PO SCH ×2 (09:41→20:16)
[2016-09-19] MEDS: MONTELUKAST SODIUM 10 MG TAB PO SCH (09:42)
[2016-09-19] MEDS: CARVEDILOL 3.125 MG TAB PO SCH ×2 (09:42→20:16)
[2016-09-19] MEDS: ASPIRIN EC 81 MG TABEC PO SCH (09:42)
[2016-09-19] MEDS: DOCUSATE SODIUM 50 MG/SENNA 8.6 MG TAB PO SCH ×2 (09:42→20:16)
--- NOTE | 2016-09-19 12:33 | PD.CARD.PN ---
Subjective Subjective Remarks Doing well, lower bp's Objective Medications Administered Medications Medications (Trade) Dose Ordered Sig/Fortino Route PRN Reason Start Time Stop Time Status Last Admin Dose Admin Sodium Chloride (NS Flush) 2 ml BID IV FLUSH 09/15/16 21:00 09/19/16 09:39 Enoxaparin Sodium (Lovenox Inj) 40 mg Q24H SQ 09/15/16 17:00 09/17/16 17:14 Senna/Docusate Sodium (Herminia-Colace) 1 tab BID PO 09/15/16 21:00 09/19/16 09:42 Aspirin (Ecotrin Ec) 81 mg DAILY PO 09/16/16 09:00 09/19/16 09:42 Levothyroxine Sodium (Synthroid) 150 mcg DAILY@06 PO 09/16/16 06:00 09/19/16 06:18 Loratadine (Claritin) 10 mg DAILY PO 09/16/16 09:00 09/19/16 09:41 Montelukast Sodium (Singulair) 10 mg DAILY PO 09/16/16 09:00 09/19/16 09:42 Furosemide (Lasix Inj) 40 mg BID@,18 IV PUSH 09/16/16 18:00 09/19/16 09:40 Patient Own Medication PT OWN MED: IPRATROPRIUM BROM... TID NASAL 09/16/16 18:00 09/19/16 09:40 Famotidine (Pepcid) 10 mg BID PO 09/17/16 21:00 09/19/16 09:41 Sacubitril/ Valsartan (Entresto 24-26 Mg) 1 tab BID PO 09/18/16 21:00 09/19/16 09:41 Carvedilol 3.125 mg 3.125 mg Q12HR PO 09/17/16 21:00 09/19/16 09:42 Sodium Chloride (NS 250 ml Inj) 250 ml @ 500 mls/hr ONCE PRN IV VAGAL REPONSE 09/18/16 14:30 09/19/16 14:29 09/19/16 11:21 Vital Signs / I&O Vital Signs Date Time Temp Pulse Resp B/P Pulse Ox O2 Delivery O2 Flow Rate FiO2 09/19/16 11:36 79 89/49 96 09/19/16 11:32 76 76/46 97 09/19/16 11:25 78 86/48 95 09/19/16 11:20 85/63 09/19/16 11:15 78/47 09/19/16 11:10 80/47 09/19/16 11:05 98.2 81 20 70/36 95 09/19/16 11:00 93 09/19/16 10:00 92 09/19/16 09:37 89 104/69 09/19/16 09:00 76 09/19/16 08:00 80 09/19/16 07:00 100 09/19/16 07:00 98.3 79 20 106/70 95 09/19/16 06:00 88 09/19/16 05:00 72 09/19/16 04:00 76 09/19/16 03:00 72 09/19/16 03:00 98.0 73 20 98/63 97 09/19/16 02:00 70 09/19/16 01:00 70 09/19/16 00:00 74 09/18/16 23:00 98.0 95 18 90/57 96 09/18/16 23:00 94 09/18/16 22:00 96 09/18/16 21:00 84 09/18/16 20:00 84 09/18/16 19:00 78 09/18/16 19:00 98.6 84 20 129/76 96 09/18/16 18:00 80 09/18/16 17:00 78 09/18/16 16:00 76 09/18/16 15:00 98.1 71 18 113/56 96 09/18/16 15:00 74 09/18/16 14:30 88 09/18/16 13:00 68 I/O 09/18/16 09/18/16 09/18/16 09/19/16 09/19/16 09/19/16 07:00 15:00 23:00 07:00 15:00 23:00 Intake Total 360 ml 1220 ml 480 ml Output Total 1400 ml 1650 ml 1000 ml Balance -1040 ml -430 ml -520 ml Intake Oral 360 ml 920 ml 480 ml IV Total 300 ml Output Urine Total 1400 ml 1650 ml 1000 ml # Bowel Movements 1 Physical Exam GENERAL: This is a well-nourished, well-developed patient, in no apparent distress. CARDIOVASCULAR: Regular rate and rhythm without murmurs, gallops, or rubs. RESPIRATORY: Clear to auscultation. Breath sounds equal bilaterally. No wheezes , rales, or rhonchi. GASTROINTESTINAL: Abdomen soft, non-tender, nondistended. Normal active bowel sounds MUSCULOSKELETAL: Extremities without clubbing, cyanosis, or edema. NEURO: Alert & Oriented x4 to person, place, time, situation. Moves all ext x4 R groin: no hematoma or bruit Laboratory Laboratory Tests Test 09/19/16 05:03 White Blood Count 8.9 TH/MM3 Red Blood Count 4.53 MIL/MM3 Hemoglobin 14.7 GM/DL Hematocrit 41.3 % Mean Corpuscular Volume 91.0 FL Mean Corpuscular Hemoglobin 32.4 PG Mean Corpuscular Hemoglobin 35.6 % Concent Red Cell Distribution Width 15.1 % Platelet Count 395 TH/MM3 Mean Platelet Volume 8.0 FL Neutrophils (%) (Auto) 62.4 % Lymphocytes (%) (Auto) 20.5 % Monocytes (%) (Auto) 13.8 % Eosinophils (%) (Auto) 2.3 % Basophils (%) (Auto) 1.0 % Neutrophils # (Auto) 5.6 TH/MM3 Lymphocytes # (Auto) 1.8 TH/MM3 Monocytes # (Auto) 1.2 TH/MM3 Eosinophils # (Auto) 0.2 TH/MM3 Basophils # (Auto) 0.1 TH/MM3 CBC Comment DIFF FINAL Differential Comment Sodium Level 137 MEQ/L Potassium Level 3.3 MEQ/L Chloride Level 102 MEQ/L Carbon Dioxide Level 27.6 MEQ/L Anion Gap 7 MEQ/L Blood Urea Nitrogen 28 MG/DL Creatinine 0.86 MG/DL Estimat Glomerular Filtration 64 ML/MIN Rate Random Glucose 93 MG/DL Calcium Level 8.6 MG/DL Imaging Last Impressions Myocardial Perfusion Scan Nuc Med 09/16/16 0000 Signed Impressions: Service Date/Time: Friday, September 16, 2016 13:56 - CONCLUSION: 1. No stress-induced ischemia. 2. Apical and anterior lateral wall infarct. 3. Left ventricular dilatation and severe, diffuse hypokinesia. RISK CATEGORY: Moderate to high Darren Parrish MD CT Angiography 09/15/16 1315 Signed Impressions: Service Date/Time: Thursday, September 15, 2016 13:50 - CONCLUSION: 1. Negative for pulmonary emboli 2. Moderate congestive failure with small right pleural effusion and minimal consolidative changes left base. Fredy Torres MD FACR Chest X-Ray 09/15/16 1225 Signed Impressions: Service Date/Time: Thursday, September 15, 2016 12:41 - CONCLUSION: Increasing congestive failure. Fredy Torres MD FACR Assessment and Plan Problem List: (1) Systolic CHF Assessment and Plan: well compensated; stopped lasix (2) Acute exacerbation of CHF (congestive heart failure) (3) Cardiomyopathy Assessment and Plan: on entresto/bb (though currently being held due to low bp' s) (4) Left bundle branch block (5) NSVT (nonsustained ventricular tachycardia) Assessment and Plan Dr. Penn aware of low BP's and will order CT a/p to r/o RP bleed if bp's dont improve w/ fluids. Problem Qualifiers (1) Systolic CHF: Qualified Code: I50.21 - Acute systolic congestive heart failure (2) Acute exacerbation of CHF (congestive heart failure): Qualified Code: I50.23 - Acute on chronic systolic congestive heart failure Ti Albert MD Sep 19, 2016 12:32
--- NOTE | 2016-09-19 12:53 | MA ---
cc: LOKESH VILLELA DO DATE: 09/18/2016 PROCEDURE Left heart catheterization, right heart catheterization, coronary angiogram. PREPROCEDURE DIAGNOSIS Acute new systolic heart failure. POSTPROCEDURE DIAGNOSIS Compensated new heart failure, nonischemic cardiomyopathy with an ejection fraction of 15-20%. MEDICATIONS Fentanyl 25 mcg. CONTRAST 45 ccs. FLUOROSCOPY 4.5 minutes. SEDATION Moderate sedation zero minutes. ESTIMATED BLOOD LOSS 10 ccs. PROCEDURAL SUMMARY Lindsay Kennedy is a pleasant 76-year-old female who originally presented to [facility] on September 17, 2016. She was found to have cardiomyopathy with an ejection fraction of 15-20% and underwent pharmacologic nuclear stress testing. During this was found to have scar in the anterior and apical portion and it was felt that she should undergo right and left heart catheterization to check her overall pressures of her heart but also to rule out significant coronary artery disease that may be intervenable if viability testing was done to help with her cardiomyopathy. Risks, benefits and alternatives were explained and she consented as such. She was brought to the lab and prepped in the usual sterile fashion. 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 Right femoral artery was accessed using a modified Seldinger technique and placement of a 5-[place] sheath. Right femoral vein was accessed using a modified Seldinger technique and placement of a 7-[place] sheath. Both sheaths were easily aspirated and flushed. A Buhler-Wendi catheter was advanced to a wedge position and pressures as well as oxygen saturation levels were done in standard fashion upon coming back through the heart. Buhler-Wendi catheter was removed. A JR-4 was advanced over a J-wire to the ascending aorta and across the aortic valve for left ventricular pressure. This was pulled back across the aortic valve showing no significant gradient of aortic stenosis. JR-4 was used for selective angiography of the right coronary system. This was exchanged out for a JL-4 which was used for selective angiography of the left coronary system. JL-4 was removed over a J-wire. Both sheaths were removed with pressure held for hemostasis. 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 FINDINGS Left main normal size vessel with adequate reflux. It trifurcates into an LAD, ramus and circumflex. LAD normal-size vessel with mild luminal irregularities. It gives off three small diagonals with no disease. Ramus overall small vessel with no disease. Circumflex is normal-size vessel with no disease. He gives off one obtuse marginal which has minor tortuosity but no significant disease. RCA anterior takeoff and dominant in nature. It has mild luminal irregularities throughout the midportion but no significant disease. HEMODYNAMICS RA 4. RV 20/3, RVEDP 4. PA 20/7, mean PA 13. Wedge 7. LVEDP 5. AO 93/51, mean 68. IMPRESSION 1. New acute systolic heart failure for which she appears to be compensated. 2. Nonischemic cardiomyopathy with an ejection fraction of 15-20%. 3. Nonsustained ventricular tachycardia on telemetry this morning. RECOMMENDATIONS 1. Ms. Kennedy appears to have nonischemic cardiomyopathy with ejection fraction of 15-20%. 2. It appears that she has diuresed well as her wedge pressure is 7. 3. She has been ordered a Life-Vest due to her ejection fraction of 15-20%. 4. She has been placed on Coreg and Entresto for heart failure medications. 5. She can most likely be discharged tomorrow as she appears compensated. 6. She should have an echocardiogram in 3 months to see if she has resolution of her cardiomyopathy and if not, ICD therapy should be considered. Thank you for allowing me to see Lindsay Kennedy. If there are any questions, please do not hesitate to call. Lokesh Villela DO VGP/TLL /11:05 PM /12:36 PM
--- NOTE | 2016-09-19 12:56 | PD.CARD.PN ---
Subjective Subjective Remarks No events overnight Seen this morning and was doing well, then later this morning drop in blood pressure [place] slightly dizzy, otherwise no complaints Objective Medications Current Medications Medications (Trade) Dose Ordered Sig/Fortino Route Start Time Stop Time Status Last Admin (NS Flush) 2 ml UNSCH PRN IV FLUSH 09/15/16 15:00 (NS Flush) 2 ml BID IV FLUSH 09/15/16 21:00 09/19/16 09:39 (Tylenol) 650 mg Q4H PRN PO 09/15/16 15:00 (Zofran Inj) 4 mg Q6H PRN IVP 09/15/16 15:00 (Lovenox Inj) 40 mg Q24H SQ 09/15/16 17:00 09/17/16 17:14 (Narcan Inj) 0.4 mg UNSCH PRN IV 09/15/16 15:00 (Herminia-Colace) 1 tab BID PO 09/15/16 21:00 09/19/16 09:42 (Milk Of Magnesia Liq) 30 ml Q12H PRN PO 09/15/16 15:00 (Senokot) 17.2 mg Q12H PRN PO 09/15/16 15:00 (Dulcolax Supp) 10 mg DAILY PRN RECTAL 09/15/16 15:00 (Lactulose Liq) 30 ml DAILY PRN PO 09/15/16 15:00 (Ecotrin Ec) 81 mg DAILY PO 09/16/16 09:00 09/19/16 09:42 (Synthroid) 150 mcg DAILY@06 PO 09/16/16 06:00 09/19/16 06:18 (Claritin) 10 mg DAILY PO 09/16/16 09:00 09/19/16 09:41 (Singulair) 10 mg DAILY PO 09/16/16 09:00 09/19/16 09:42 Patient Own Medication PT OWN MED: IPRATROPRIUM BROM... TID NASAL 09/16/16 18:00 09/19/16 09:40 (Pill Splitter) 1 ea UNSCH PRN OTHER 09/16/16 21:00 (Pepcid) 10 mg BID PO 09/17/16 21:00 09/19/16 09:41 (Entresto 24-26 Mg) 1 tab BID PO 09/18/16 21:00 09/19/16 09:41 (Coreg) 3.125 mg Q12HR PO 09/17/16 21:00 09/19/16 09:42 Atropine Sulfate 0.5 mg 0.5 mg UNSCH PRN IV 09/18/16 14:30 (NS 250 ml Inj) 250 ml @ 500 mls/hr ONCE PRN IV 09/18/16 14:30 09/19/16 14:29 09/19/16 11:21 Vital Signs / I&O Vital Signs Date Time Temp Pulse Resp B/P Pulse Ox O2 Delivery O2 Flow Rate FiO2 09/19/16 12:00 79 09/19/16 11:36 79 89/49 96 09/19/16 11:32 76 76/46 97 09/19/16 11:25 78 86/48 95 09/19/16 11:20 85/63 09/19/16 11:15 78/47 09/19/16 11:10 80/47 09/19/16 11:05 98.2 81 20 70/36 95 09/19/16 11:00 93 09/19/16 10:00 92 09/19/16 09:37 89 104/69 09/19/16 09:00 76 09/19/16 08:00 80 09/19/16 07:00 100 09/19/16 07:00 98.3 79 20 106/70 95 09/19/16 06:00 88 09/19/16 05:00 72 09/19/16 04:00 76 09/19/16 03:00 72 09/19/16 03:00 98.0 73 20 98/63 97 09/19/16 02:00 70 09/19/16 01:00 70 09/19/16 00:00 74 09/18/16 23:00 98.0 95 18 90/57 96 09/18/16 23:00 94 09/18/16 22:00 96 09/18/16 21:00 84 09/18/16 20:00 84 09/18/16 19:00 78 09/18/16 19:00 98.6 84 20 129/76 96 09/18/16 18:00 80 09/18/16 17:00 78 09/18/16 16:00 76 09/18/16 15:00 98.1 71 18 113/56 96 09/18/16 15:00 74 09/18/16 14:30 88 09/18/16 13:00 68 I/O 09/18/16 09/18/16 09/18/16 09/19/16 09/19/16 09/19/16 07:00 15:00 23:00 07:00 15:00 23:00 Intake Total 360 ml 1220 ml 480 ml Output Total 1400 ml 1650 ml 1000 ml Balance -1040 ml -430 ml -520 ml Intake Oral 360 ml 920 ml 480 ml IV Total 300 ml Output Urine Total 1400 ml 1650 ml 1000 ml # Bowel Movements 1 Physical Exam GENERAL: NAD, AAOx3 SKIN: Warm and dry. HEAD: Atraumatic. Normocephalic. EYES: Pupils equal and round. No scleral icterus. No injection or drainage. ENT: No nasal bleeding or discharge. Mucous membranes pink and moist. NECK: Trachea midline. No JVD. CARDIOVASCULAR: Regular rate and rhythm. RESPIRATORY: No accessory muscle use. Clear to auscultation. Breath sounds equal bilaterally. GASTROINTESTINAL: Abdomen soft, non-tender, nondistended. Hepatic and splenic margins not palpable. MUSCULOSKELETAL: Extremities without clubbing, cyanosis, or edema. No obvious deformities. Right femoral no hematoma/bruit, neurovascularly intact distally NEUROLOGICAL: Awake and alert. No obvious cranial nerve deficits. Motor grossly within normal limits. Five out of 5 muscle strength in the arms and legs. Normal speech. PSYCHIATRIC: Appropriate mood and affect; insight and judgment normal. Laboratory Laboratory Tests Test 09/19/16 05:03 White Blood Count 8.9 TH/MM3 Red Blood Count 4.53 MIL/MM3 Hemoglobin 14.7 GM/DL Hematocrit 41.3 % Mean Corpuscular Volume 91.0 FL Mean Corpuscular Hemoglobin 32.4 PG Mean Corpuscular Hemoglobin 35.6 % Concent Red Cell Distribution Width 15.1 % Platelet Count 395 TH/MM3 Mean Platelet Volume 8.0 FL Neutrophils (%) (Auto) 62.4 % Lymphocytes (%) (Auto) 20.5 % Monocytes (%) (Auto) 13.8 % Eosinophils (%) (Auto) 2.3 % Basophils (%) (Auto) 1.0 % Neutrophils # (Auto) 5.6 TH/MM3 Lymphocytes # (Auto) 1.8 TH/MM3 Monocytes # (Auto) 1.2 TH/MM3 Eosinophils # (Auto) 0.2 TH/MM3 Basophils # (Auto) 0.1 TH/MM3 CBC Comment DIFF FINAL Differential Comment Sodium Level 137 MEQ/L Potassium Level 3.3 MEQ/L Chloride Level 102 MEQ/L Carbon Dioxide Level 27.6 MEQ/L Anion Gap 7 MEQ/L Blood Urea Nitrogen 28 MG/DL Creatinine 0.86 MG/DL Estimat Glomerular Filtration 64 ML/MIN Rate Random Glucose 93 MG/DL Calcium Level 8.6 MG/DL Assessment and Plan Problem List: (1) Systolic CHF (2) Acute exacerbation of CHF (congestive heart failure) (3) Cardiomyopathy (4) Left bundle branch block (5) NSVT (nonsustained ventricular tachycardia) Assessment and Plan 1) No significant CAD 2) NICM EF 15% 3) Pressures down, well compensated 4) NSVT on Coreg Lifevest ordered 5) Echo in 3 months to see if resolution of cardiomyopathy 6) Hypotensive today most likely due to over diuresis Will plan on CT abd/pel to rule out retroperitoneal bleed to make sure Problem Qualifiers (1) Systolic CHF: Qualified Code: I50.21 - Acute systolic congestive heart failure (2) Acute exacerbation of CHF (congestive heart failure): Qualified Code: I50.23 - Acute on chronic systolic congestive heart failure Lokesh Murcia DO Sep 19, 2016 12:56
--- NOTE | 2016-09-19 14:03 | RADRPT ---
EXAM DATE/TIME: 09/19/2016 13:45 [place] COMPARISON: No previous studies available for comparison. INDICATIONS : Drop in blood pressure, retroperitoneal bleed. ORAL CONTRAST: No oral contrast ingested. RADIATION DOSE: 4.70 CTDIvol (mGy) MEDICAL HISTORY : Hypothyroidism. Cardiovascular disease SURGICAL HISTORY : Colon resection. Hysterectomy.Cholecystectomy. ENCOUNTER: Initial ACUITY: 1 day PAIN SCALE: 1/10 LOCATION: Bilateral lower quadrant TECHNIQUE: Volumetric scanning of the abdomen and pelvis was performed. Using automated exposure control and ad justment of the mA and/or kV according to patient size, radiation dose was kept as low as reasonably achievable to obtain optimal diagnostic quality images. DICOM format image data is available electro nically for review and comparison. The lack of IV contrast limits the diagnosis for certain organ pat hology. FINDINGS: LOWER LUNGS: Small right pleural effusion. Scarring in the left lung base. Cardiomegaly. LIVER: Homogeneous density. 2 cm cyst left lobe of the liver. 3.2 cm cyst right lobe of the liver. There is no dilation of the biliary tree. No gallbladder, surgically removed.. SPLEEN: Normal size without lesion. PANCREAS: Within normal limits. KIDNEYS: Normal in size and shape. There is no mass, stone, or hydronephrosis. ADRENAL GLANDS: Within normal limits. VASCULAR: There is no aortic aneurysm. BOWEL/MESENTERY: The stomach, small bowel, and colon demonstrate no acute abnormality. There is no free intraperitone al air or fluid. There is stool throughout the colon. No inflammatory changes. ABDOMINAL WALL: Within normal limits. RETROPERITONEUM: There is no lymphadenopathy. No evidence of any fluid collections to indicate a retroperitoneal bleed . BLADDER: No wall thickening or mass. REPRODUCTIVE: Within normal limits. INGUINAL: There is no lymphadenopathy or hernia. MUSCULOSKELETAL: Within normal limits for patient age. CONCLUSION: 1. 3.2 cm hepatic cyst right lobe of the liver. 2. 2 cm hepatic cyst left lobe liver 3. Small right effusion. 4. Cardiomegaly. 5. No evidence to indicate a retroperitoneal bleed. No free fluid or loculated fluid collections in t he abdomen/pelvis. Beau Galdamez MD on September 19, 2016 at 13:58 Board Certified Radiologist. This report was verified electronically.
[2016-09-19] MEDS: ENOXAPARIN SODIUM 40 MG/0.4 ML SYRINGE SQ SCH (16:38)
--- NOTE | 2016-09-19 18:19 | HHI.PR ---
Subjective Interval History Alert, oriented, was dizzy standing up today with low blood pressure, CT scan of the abdomen done, no evidence of retroperitoneal bleed Review of Systems Constitutional Constitutional Remarks 10 systems reviewed and otherwise negative Vitals/Results Intake & Output 09/18/16 09/18/16 09/19/16 14:59 22:59 06:59 Intake Total 1220 ml 480 ml Output Total 1650 ml 1000 ml Balance -430 ml -520 ml Intake Oral 920 ml 480 ml IV Total 300 ml Output Urine Total 1650 ml 1000 ml # Bowel Movements 1 Vital Signs Vital Signs Date Time Temp Pulse Resp B/P Pulse Ox O2 Delivery O2 Flow Rate FiO2 09/19/16 18:05 98 09/19/16 17:11 91 09/19/16 16:05 83 09/19/16 15:00 78 09/19/16 15:00 98.1 77 17 92/51 96 09/19/16 14:00 77 09/19/16 13:01 75 09/19/16 12:00 79 09/19/16 11:36 79 89/49 96 09/19/16 11:32 76 76/46 97 09/19/16 11:25 78 86/48 95 09/19/16 11:20 85/63 09/19/16 11:15 78/47 09/19/16 11:10 80/47 09/19/16 11:05 98.2 81 20 70/36 95 09/19/16 11:00 93 09/19/16 10:00 92 09/19/16 09:37 89 104/69 09/19/16 09:00 76 09/19/16 08:00 80 09/19/16 07:00 100 09/19/16 07:00 98.3 79 20 106/70 95 09/19/16 06:00 88 09/19/16 05:00 72 09/19/16 04:00 76 09/19/16 03:00 72 09/19/16 03:00 98.0 73 20 98/63 97 09/19/16 02:00 70 09/19/16 01:00 70 09/19/16 00:00 74 09/18/16 23:00 98.0 95 18 90/57 96 09/18/16 23:00 94 09/18/16 22:00 96 09/18/16 21:00 84 09/18/16 20:00 84 09/18/16 19:00 78 09/18/16 19:00 98.6 84 20 129/76 96 CBC/BMP: 09/19/16 0503 09/19/16 0503 Lab Results Laboratory Tests Test 09/19/16 05:03 White Blood Count 8.9 TH/MM3 Red Blood Count 4.53 MIL/MM3 Hemoglobin 14.7 GM/DL Hematocrit 41.3 % Mean Corpuscular Volume 91.0 FL Mean Corpuscular Hemoglobin 32.4 PG Mean Corpuscular Hemoglobin 35.6 % Concent Red Cell Distribution Width 15.1 % Platelet Count 395 TH/MM3 Mean Platelet Volume 8.0 FL Neutrophils (%) (Auto) 62.4 % Lymphocytes (%) (Auto) 20.5 % Monocytes (%) (Auto) 13.8 % Eosinophils (%) (Auto) 2.3 % Basophils (%) (Auto) 1.0 % Neutrophils # (Auto) 5.6 TH/MM3 Lymphocytes # (Auto) 1.8 TH/MM3 Monocytes # (Auto) 1.2 TH/MM3 Eosinophils # (Auto) 0.2 TH/MM3 Basophils # (Auto) 0.1 TH/MM3 CBC Comment DIFF FINAL Differential Comment Sodium Level 137 MEQ/L Potassium Level 3.3 MEQ/L Chloride Level 102 MEQ/L Carbon Dioxide Level 27.6 MEQ/L Anion Gap 7 MEQ/L Blood Urea Nitrogen 28 MG/DL Creatinine 0.86 MG/DL Estimat Glomerular Filtration 64 ML/MIN Rate Random Glucose 93 MG/DL Calcium Level 8.6 MG/DL Physical Exam General General Appearance: Well Developed, Well Nourished, No Acute Distress, Comfortable Eyes Eye Exam: Pupils Equal, Pupils Reactive Ears & Nose Ears & Nose Exam: Nasal Mucosa Mclaughlin Throat Throat Exam: Oral Mucosa Mclaughlin & Moist Neck Neck Exam: Neck Supple, Trachea Midline Pulmonary Resp Exam: Crackles (faint, improved) Cardiology CV Exam: Regular, Good Perfusion Gastrointestinal/Abdomen GI Exam: Soft, Non-Tender, Bowel Sounds Present, Non-Distended Musculoskeletal MS Exam: Normal Tone Integumentary Skin Exam: Warm, Intact Extremeties Extremities Exam: No Edema, Pedal Pulses Palpable Neurologic Neuro Exam: Alert, Awake, Oriented, Speech Clear, Moving All Extremities, No Focal Deficits VTE Prophylaxis VTE Prophylaxis Meds: Lovenox Assessment/Plan Problem List: (1) Acute exacerbation of CHF (congestive heart failure) (2) Allergic rhinitis (3) Hypothyroid (4) Left bundle branch block Assessment/Plan Assessment Episode of orthostatic hypotension today Likely secondary to diuretic Acute systolic heart failure, symptoms improved Ejection fraction 1520% Nonischemic cardiomyopathy Status post cardiac catheterization on 09/28/16 Underweight status History of hypothyroidism and allergic rhinitis Management Hold diuretics today LifeVest to be installed tomorrow Ambulate as tolerated Possible discharge home tomorrow Discussed with patient Discussed with nurse Discussed with Dr. Murcia 35 minutes Problem Qualifiers (1) Acute exacerbation of CHF (congestive heart failure): Qualified Code: I50.23 - Acute on chronic systolic congestive heart failure (2) Allergic rhinitis: (3) Hypothyroid: Qualified Code: E03.9 - Hypothyroidism, unspecified type Karli Stevenson MD Sep 19, 2016 18:19
[2016-09-20] VITALS (23 sets, daily range): BP systolic 90–112; BP diastolic 46–68; PULSE 68–98; RESP 16–20; TEMP 97.6–98.2; O2SAT 95–100
[2016-09-20] MEDS: LEVOTHYROXINE SODIUM 150 MCG TAB PO SCH (06:00)
[2016-09-20] MEDS: DOCUSATE SODIUM 50 MG/SENNA 8.6 MG TAB PO SCH ×2 (09:26→21:00)
[2016-09-20] MEDS: ASPIRIN EC 81 MG TABEC PO SCH (09:26)
[2016-09-20] MEDS: SODIUM CHLORIDE 0.9% FLUSH 10 ML FLUSH IV FLUSH SCH ×2 (09:27→21:00)
[2016-09-20] MEDS: IPRATROPIUM 0.03% NASAL SCH ×3 (09:27→18:00)
[2016-09-20] MEDS: MONTELUKAST SODIUM 10 MG TAB PO SCH (09:29)
[2016-09-20] MEDS: SACUBITRIL/VALSARTAN 24 MG-26 MG TAB PO SCH ×2 (09:29→21:54)
[2016-09-20] MEDS: LORATADINE 10 MG TAB PO SCH (09:29)
[2016-09-20] MEDS: CARVEDILOL 3.125 MG TAB PO SCH ×2 (09:29→21:54)
[2016-09-20] MEDS: FAMOTIDINE 20 MG TAB PO SCH ×2 (09:29→21:54)
[2016-09-20 15:08] LABS: BICARBONATE 27.7 MEQ/L (21.0-32.0); POTASSIUM 3.7 MEQ/L (3.5-5.1)
--- NOTE | 2016-09-20 15:27 | PD.CARD.PN ---
Subjective Subjective Remarks No events overnight Feeling better No RPB on CT Objective Medications Current Medications Medications (Trade) Dose Ordered Sig/Fortino Route Start Time Stop Time Status Last Admin (NS Flush) 2 ml UNSCH PRN IV FLUSH 09/15/16 15:00 (NS Flush) 2 ml BID IV FLUSH 09/15/16 21:00 09/20/16 09:27 (Tylenol) 650 mg Q4H PRN PO 09/15/16 15:00 (Zofran Inj) 4 mg Q6H PRN IVP 09/15/16 15:00 (Lovenox Inj) 40 mg Q24H SQ 09/15/16 17:00 09/19/16 16:38 (Narcan Inj) 0.4 mg UNSCH PRN IV 09/15/16 15:00 ([place]erminia-Colace) 1 tab BID PO 09/15/16 21:00 09/20/16 09:26 (Milk Of Magnesia Liq) 30 ml Q12H PRN PO 09/15/16 15:00 (Senokot) 17.2 mg Q12H PRN PO 09/15/16 15:00 (Dulcolax Supp) 10 mg DAILY PRN RECTAL 09/15/16 15:00 (Lactulose Liq) 30 ml DAILY PRN PO 09/15/16 15:00 (Ecotrin Ec) 81 mg DAILY PO 09/16/16 09:00 09/20/16 09:26 (Synthroid) 150 mcg DAILY@06 PO 09/16/16 06:00 09/20/16 06:00 (Claritin) 10 mg DAILY PO 09/16/16 09:00 09/20/16 09:29 (Singulair) 10 mg DAILY PO 09/16/16 09:00 09/20/16 09:29 Patient Own Medication PT OWN MED: IPRATROPRIUM BROM... TID NASAL 09/16/16 18:00 09/20/16 09:27 (Pill Splitter) 1 ea UNSCH PRN OTHER 09/16/16 21:00 (Pepcid) 10 mg BID PO 09/17/16 21:00 09/20/16 09:29 (Entresto 24-26 Mg) 1 tab BID PO 09/18/16 21:00 09/20/16 09:29 (Coreg) 3.125 mg Q12HR PO 09/17/16 21:00 09/20/16 09:29 (Atropine Inj) 0.5 mg UNSCH PRN IV 09/18/16 14:30 Vital Signs / I&O Vital Signs Date Time Temp Pulse Resp B/P Pulse Ox O2 Delivery O2 Flow Rate FiO2 09/20/16 14:10 87 09/20/16 13:03 86 09/20/16 12:07 89 09/20/16 11:00 92 09/20/16 11:00 97.6 91 18 103/66 96 09/20/16 10:09 79 09/20/16 09:25 95/46 09/20/16 09:00 94 09/20/16 08:00 84 09/20/16 07:10 97.6 80 19 112/68 100 09/20/16 07:10 77 09/20/16 06:00 74 09/20/16 05:00 70 09/20/16 04:00 94 09/20/16 03:00 90 09/20/16 03:00 97.8 85 18 99/62 97 09/20/16 02:00 68 09/20/16 01:00 68 09/20/16 00:00 72 09/19/16 23:00 78 09/19/16 23:00 97.5 77 12 91/54 95 09/19/16 22:00 76 09/19/16 21:00 78 09/19/16 20:00 97.9 92 16 103/57 9 09/19/16 20:00 102 09/19/16 19:00 86 09/19/16 18:05 98 09/19/16 17:11 91 09/19/16 16:05 83 I/O 09/19/16 09/19/16 09/19/16 09/20/16 09/20/16 09/20/16 06:59 14:59 22:59 06:59 14:59 22:59 Intake Total 480 ml 480 ml 360 ml Output Total 1000 ml 1200 ml 700 ml Balance -520 ml -720 ml -340 ml Intake Oral 480 ml 480 ml 360 ml Output Urine Total 1000 ml 1200 ml 700 ml # Bowel Movements 1 1 1 Physical Exam GENERAL: NAD, AAOx3 SKIN: Warm and dry. HEAD: Atraumatic. Normocephalic. EYES: Pupils equal and round. No scleral icterus. No injection or drainage. ENT: No nasal bleeding or discharge. Mucous membranes pink and moist. NECK: Trachea midline. No JVD. CARDIOVASCULAR: Regular rate and rhythm. RESPIRATORY: No accessory muscle use. Clear to auscultation. Breath sounds equal bilaterally. GASTROINTESTINAL: Abdomen soft, non-tender, nondistended. Hepatic and splenic margins not palpable. MUSCULOSKELETAL: Extremities without clubbing, cyanosis, or edema. No obvious deformities. Right femoral no hematoma/bruit, neurovascularly intact distally NEUROLOGICAL: Awake and alert. No obvious cranial nerve deficits. Motor grossly within normal limits. Five out of 5 muscle strength in the arms and legs. Normal speech. PSYCHIATRIC: Appropriate mood and affect; insight and judgment normal. Laboratory Laboratory Tests Test 09/20/16 14:11 Sodium Level 138 MEQ/L Potassium Level 3.7 MEQ/L Chloride Level 103 MEQ/L Carbon Dioxide Level 27.7 MEQ/L Anion Gap 7 MEQ/L Blood Urea Nitrogen 22 MG/DL Creatinine 0.83 MG/DL Estimat Glomerular Filtration 67 ML/MIN Rate Random Glucose 92 MG/DL Calcium Level 8.6 MG/DL Assessment and Plan Problem List: (1) Systolic CHF (2) Acute exacerbation of CHF (congestive heart failure) (3) Cardiomyopathy (4) Left bundle branch block (5) NSVT (nonsustained ventricular tachycardia) Assessment and Plan 1) No significant CAD 2) NICM EF 15% 3) Pressures down, well compensated 4) NSVT on Coreg Lifevest ordered 5) Echo in 3 months to see if resolution of cardiomyopathy 6) Less hypotensive today, doing better, con't meds 7) PT eval today Problem Qualifiers (1) Systolic CHF: Qualified Code: I50.21 - Acute systolic congestive heart failure (2) Acute exacerbation of CHF (congestive heart failure): Qualified Code: I50.23 - Acute on chronic systolic congestive heart failure Lokesh Murcia DO Sep 20, 2016 15:27
--- NOTE | 2016-09-20 16:04 | HHI.PR ---
Subjective Interval History Alert, oriented, feels better, ambulated today, much less dizziness Review of Systems Constitutional Constitutional Remarks 10 systems reviewed and otherwise negative Vitals/Results Intake & Output 09/19/16 09/19/16 09/20/16 15:00 23:00 07:00 Intake Total 480 ml 360 ml Output Total 1200 ml 700 ml Balance -720 ml -340 ml Intake Oral 480 ml 360 ml Output Urine Total 1200 ml 700 ml # Bowel Movements 1 1 Vital Signs Vital Signs Date Time Temp Pulse Resp B/P Pulse Ox O2 Delivery O2 Flow Rate FiO2 09/20/16 15:00 88 09/20/16 15:00 97.9 90 20 99/64 95 09/20/16 14:10 87 09/20/16 13:03 86 09/20/16 12:07 89 09/20/16 11:00 92 09/20/16 11:00 97.6 91 18 103/66 96 09/20/16 10:09 79 09/20/16 09:25 95/46 09/20/16 09:00 94 09/20/16 08:00 84 09/20/16 07:10 97.6 80 19 112/68 100 09/20/16 07:10 77 09/20/16 06:00 74 09/20/16 05:00 70 09/20/16 04:00 94 09/20/16 03:00 90 09/20/16 03:00 97.8 85 18 99/62 97 09/20/16 02:00 68 09/20/16 01:00 68 09/20/16 00:00 72 09/19/16 23:00 78 09/19/16 23:00 97.5 77 12 91/54 95 09/19/16 22:00 76 09/19/16 21:00 78 09/19/16 20:00 97.9 92 16 103/57 9 09/19/16 20:00 102 09/19/16 19:00 86 09/19/16 18:05 98 09/19/16 17:11 91 09/19/16 16:05 83 CBC/BMP: 09/19/16 0503 09/20/16 1411 Lab Results Laboratory Tests Test 09/20/16 14:11 Sodium Level 138 MEQ/L Potassium Level 3.7 MEQ/L Chloride Level 103 MEQ/L Carbon Dioxide Level 27.7 MEQ/L Anion Gap 7 MEQ/L Blood Urea Nitrogen 22 MG/DL Creatinine 0.83 MG/DL Estimat Glomerular Filtration 67 ML/MIN Rate Random Glucose 92 MG/DL Calcium Level 8.6 MG/DL Physical Exam General General Appearance: Well Developed, Well Nourished, No Acute Distress, Comfortable Eyes Eye Exam: Pupils Equal, Pupils Reactive Ears & Nose Ears & Nose Exam: Nasal Mucosa [place] Throat Throat Exam: Oral Mucosa [place] & Moist Neck Neck Exam: Neck Supple, Trachea Midline Pulmonary Resp Exam: Crackles (faint, improved) Resp Remarks LifeVest in place Cardiology CV Exam: Regular, Good Perfusion Gastrointestinal/Abdomen GI Exam: Soft, Non-Tender, Bowel Sounds Present, Non-Distended Musculoskeletal MS Exam: Normal Tone Integumentary Skin Exam: Warm, Intact Extremeties Extremities Exam: No Edema, Pedal Pulses Palpable Neurologic Neuro Exam: Alert, Awake, Oriented, Speech Clear, Moving All Extremities, No Focal Deficits VTE Prophylaxis VTE Prophylaxis Meds: Lovenox Assessment/Plan Problem List: (1) Acute exacerbation of CHF (congestive heart failure) (2) Allergic rhinitis (3) Hypothyroid (4) Left bundle branch block Assessment/Plan Assessment LifeVest installed 09/20/16 Episode of orthostatic hypotension 09/19/16, better day today Likely secondary to diuretic Acute systolic heart failure, symptoms improved Ejection fraction 1520% Nonischemic cardiomyopathy Status post cardiac catheterization on 09/28/16 Underweight status History of hypothyroidism and allergic rhinitis Management Hold diuretics Potassium replaced Ambulate as tolerated Possible discharge home tomorrow Discussed with patient Discussed with nurse Discussed with family at bedside 35 minutes Discussed Condition with: Patient, Daughter Problem Qualifiers (1) Acute exacerbation of CHF (congestive heart failure): Qualified Code: I50.23 - Acute on chronic systolic congestive heart failure (2) Allergic rhinitis: (3) Hypothyroid: Qualified Code: E03.9 - Hypothyroidism, unspecified type Karli Stevenson MD Sep 20, 2016 16:03
[2016-09-20] MEDS: ENOXAPARIN SODIUM 40 MG/0.4 ML SYRINGE SQ SCH (17:29)
--- NOTE | 2016-09-20 17:56 | HHI.FF ---
Face to Face Verification Diagnosis: (1) Acute exacerbation of CHF (congestive heart failure) (2) Systolic CHF (3) Cardiomyopathy (4) NSVT (nonsustained ventricular tachycardia) Home Health Nursing Order: Medical education CHF education I have seen patient Lindsay Kennedy on 09/20/16. My clinical findings support the need for the requested home health care services because: Ltd mobility - disease progression I certify that my clinical findings support that this patient is homebound because: Impaired cognitive ability/safety Karli Stevenson MD Sep 20, 2016 17:56
[2016-09-20] MEDS ORDERED: FURO1TAB62 PO (17:58)
[2016-09-21] VITALS (21 sets, daily range): BP systolic 84–113; BP diastolic 49–62; PULSE 64–97; RESP 16–17; TEMP 97.3–99.4; O2SAT 95–97
[2016-09-21] MEDS: LEVOTHYROXINE SODIUM 150 MCG TAB PO SCH (05:29)
[2016-09-21] MEDS: LORATADINE 10 MG TAB PO SCH (08:21)
[2016-09-21] MEDS: ASPIRIN EC 81 MG TABEC PO SCH (08:22)
[2016-09-21] MEDS: SACUBITRIL/VALSARTAN 24 MG-26 MG TAB PO SCH ×2 (08:22→21:24)
[2016-09-21] MEDS: FAMOTIDINE 20 MG TAB PO SCH ×2 (08:22→21:24)
[2016-09-21] MEDS: MONTELUKAST SODIUM 10 MG TAB PO SCH (08:22)
[2016-09-21] MEDS: IPRATROPIUM 0.03% NASAL SCH ×3 (08:23→18:00)
[2016-09-21] MEDS: CARVEDILOL 3.125 MG TAB PO SCH (08:23)
[2016-09-21] MEDS: SODIUM CHLORIDE 0.9% FLUSH 10 ML FLUSH IV FLUSH SCH ×2 (08:23→21:23)
[2016-09-21] MEDS: DOCUSATE SODIUM 50 MG/SENNA 8.6 MG TAB PO SCH ×2 (08:24→21:00)
--- NOTE | 2016-09-21 17:20 | HHI.PR ---
Subjective Interval History Alert, oriented, walking around her room, no lightheadedness or dizziness on standing, systolic blood pressure was 80 this morning, Coreg was withheld by nurse Review of Systems Constitutional Constitutional Remarks 10 systems reviewed and otherwise negative Vitals/Results Intake & Output 09/20/16 09/20/16 09/21/16 15:00 23:00 07:00 Intake Total 240 ml 240 ml Output Total 800 ml 400 ml Balance -560 ml -160 ml Intake Oral 240 ml 240 ml Output Urine Total 800 ml 400 ml # Bowel Movements 1 Vital Signs Vital Signs Date Time Temp Pulse Resp B/P Pulse Ox O2 Delivery O2 Flow Rate FiO2 09/21/16 17:00 93 09/21/16 16:00 79 09/21/16 15:00 98.4 88 17 97/49 95 09/21/16 15:00 86 09/21/16 14:00 90 09/21/16 13:00 72 09/21/16 12:00 92 09/21/16 11:05 97.5 90 17 103/62 95 09/21/16 11:00 90 09/21/16 10:00 97 09/21/16 09:00 86 09/21/16 08:00 90 09/21/16 07:00 78 09/21/16 07:00 97.3 86 17 84/56 97 09/21/16 05:00 90 09/21/16 04:04 99.4 68 16 86/52 97 09/21/16 03:00 64 09/20/16 23:00 98 09/20/16 23:00 98.2 77 16 95/57 97 09/20/16 22:50 97.9 95 16 90/66 96 09/20/16 19:00 88 09/20/16 18:11 96 CBC/BMP: 09/19/16 0503 09/20/16 1411 Physical Exam General General Appearance: Well Developed, Well Nourished, No Acute Distress, Comfortable Eyes Eye Exam: Pupils Equal, Pupils Reactive Ears & Nose Ears & Nose Exam: Nasal Mucosa [place] Clear Throat Throat Exam: Oral Mucosa [place] Clear & Moist Neck Neck Exam: Neck Supple, Trachea Midline Pulmonary Resp Remarks LifeVest in place Cardiology CV Exam: Regular, Good Perfusion Gastrointestinal/Abdomen GI Exam: Soft, Non-Tender, Bowel Sounds Present, Non-Distended Musculoskeletal MS Exam: Normal Tone Integumentary Skin Exam: Warm, Intact Extremeties Extremities Exam: No Edema, Pedal Pulses Palpable Neurologic Neuro Exam: Alert, Awake, Oriented, Speech Clear, Moving All Extremities, No Focal Deficits VTE Prophylaxis VTE Prophylaxis Meds: Lovenox Assessment/Plan Problem List: (1) Acute exacerbation of CHF (congestive heart failure) (2) Allergic rhinitis (3) Hypothyroid (4) Left bundle branch block Assessment/Plan Assessment Low blood pressure LifeVest installed 09/20/16 Episode of orthostatic hypotension 09/19/16, no orthostasis today Acute systolic heart failure, symptoms improved Ejection fraction 1520% Nonischemic cardiomyopathy Status post cardiac catheterization on 09/28/16 Underweight status History of hypothyroidism and allergic rhinitis Management Reduce Coreg to 3.125 mg once a day Hold diuretics Replace Potassium as needed Ambulate as tolerated Again Possible discharge home tomorrow, if stable Discussed with patient Discussed with nurse Discussed with daughter at bedside 35 minutes Problem Qualifiers (1) Acute exacerbation of CHF (congestive heart failure): Qualified Code: I50.23 - Acute on chronic systolic congestive heart failure (2) Allergic rhinitis: (3) Hypothyroid: Qualified Code: E03.9 - Hypothyroidism, unspecified type Karli Stevenson MD Sep 21, 2016 17:20
--- NOTE | 2016-09-21 18:09 | PD.CARD.PN ---
Subjective Subjective Remarks Dizzy this morning, otherwise up and ambulating Objective Medications Current Medications Medications (Trade) Dose Ordered Sig/Fortino Route Start Time Stop Time Status Last Admin (NS Flush) 2 ml UNSCH PRN IV FLUSH 09/15/16 15:00 (NS Flush) 2 ml BID IV FLUSH 09/15/16 21:00 09/21/16 08:23 (Tylenol) 650 mg Q4H PRN PO 09/15/16 15:00 (Zofran Inj) 4 mg Q6H PRN IVP 09/15/16 15:00 (Lovenox Inj) 40 mg Q24H SQ 09/15/16 17:00 09/20/16 17:29 (Narcan Inj) 0.4 mg UNSCH PRN IV 09/15/16 15:00 ([place]inia-Colace) 1 tab BID PO 09/15/16 21:00 09/20/16 09:26 (Milk Of Magnesia Liq) 30 ml Q12H PRN PO 09/15/16 15:00 (Senokot) 17.2 mg Q12H PRN PO 09/15/16 15:00 (Dulcolax Supp) 10 mg DAILY PRN RECTAL 09/15/16 15:00 (Lactulose Liq) 30 ml DAILY PRN PO 09/15/16 15:00 (Ecotrin Ec) 81 mg DAILY PO 09/16/16 09:00 09/21/16 08:22 (Synthroid) 150 mcg DAILY@06 PO 09/16/16 06:00 09/21/16 05:29 (Claritin) 10 mg DAILY PO 09/16/16 09:00 09/21/16 08:21 (Singulair) 10 mg DAILY PO 09/16/16 09:00 09/21/16 08:22 Patient Own Medication PT OWN MED: IPRATROPRIUM BROM... TID NASAL 09/16/16 18:00 09/21/16 13:00 (Pill Splitter) 1 ea UNSCH PRN OTHER 09/16/16 21:00 (Pepcid) 10 mg BID PO 09/17/16 21:00 09/21/16 08:22 (Entresto 24-26 Mg) 1 tab BID PO 09/18/16 21:00 09/21/16 08:22 (Atropine Inj) 0.5 mg UNSCH PRN IV 09/18/16 14:30 (Coreg) 3.125 mg DAILY PO 09/22/16 09:00 Vital Signs / I&O Vital Signs Date Time Temp Pulse Resp B/P Pulse Ox O2 Delivery O2 Flow Rate FiO2 09/21/16 18:00 96 09/21/16 17:00 93 09/21/16 16:00 79 09/21/16 15:00 98.4 88 17 97/49 95 09/21/16 15:00 86 09/21/16 14:00 90 09/21/16 13:00 72 09/21/16 12:00 92 09/21/16 11:05 97.5 90 17 103/62 95 09/21/16 11:00 90 09/21/16 10:00 97 09/21/16 09:00 86 09/21/16 08:00 90 09/21/16 07:00 78 09/21/16 07:00 97.3 86 17 84/56 97 09/21/16 05:00 90 09/21/16 04:04 99.4 68 16 86/52 97 09/21/16 03:00 64 09/20/16 23:00 98 09/20/16 23:00 98.2 77 16 95/57 97 09/20/16 22:50 97.9 95 16 90/66 96 09/20/16 19:00 88 09/20/16 18:11 96 I/O 09/20/16 09/20/16 09/20/16 09/21/16 09/21/16 09/21/16 06:59 14:59 22:59 06:59 14:59 22:59 Intake Total 360 ml 240 ml 240 ml Output Total 700 ml 800 ml 400 ml Balance -340 ml -560 ml -160 ml Intake Oral 360 ml 240 ml 240 ml Output Urine Total 700 ml 800 ml 400 ml # Bowel Movements 1 1 Physical Exam GENERAL: NAD, AAOx3 SKIN: Warm and dry. HEAD: Atraumatic. Normocephalic. EYES: Pupils equal and round. No scleral icterus. No injection or drainage. ENT: No nasal bleeding or discharge. Mucous membranes pink and moist. NECK: Trachea midline. No JVD. CARDIOVASCULAR: Regular rate and rhythm. RESPIRATORY: No accessory muscle use. Clear to auscultation. Breath sounds equal bilaterally. GASTROINTESTINAL: Abdomen soft, non-tender, nondistended. Hepatic and splenic margins not palpable. MUSCULOSKELETAL: Extremities without clubbing, cyanosis, or edema. No obvious deformities. Right femoral no hematoma/bruit, neurovascularly intact distally NEUROLOGICAL: Awake and alert. No obvious cranial nerve deficits. Motor grossly within normal limits. Five out of 5 muscle strength in the arms and legs. Normal speech. PSYCHIATRIC: Appropriate mood and affect; insight and judgment normal. Assessment and Plan Problem List: (1) Systolic CHF (2) Acute exacerbation of CHF (congestive heart failure) (3) Cardiomyopathy (4) Left bundle branch block (5) NSVT (nonsustained ventricular tachycardia) Assessment and Plan 1) No significant CAD 2) NICM EF 15% 3) Pressures down, well compensated 4) NSVT on Coreg Lifevest ordered 5) Echo in 3 months to see if resolution of cardiomyopathy 6) Less hypotensive today, doing better, con't meds OK with Coreg once a day, or 1/2 BID... if further NSVT may need to stop Entresto and increase Coreg 7) Probable home tomorrow with home health care Problem Qualifiers (1) Systolic CHF: Qualified Code: I50.21 - Acute systolic congestive heart failure (2) Acute exacerbation of CHF (congestive heart failure): Qualified Code: I50.23 - Acute on chronic systolic congestive heart failure Lokesh Murcia DO Sep 21, 2016 18:09
[2016-09-21] MEDS: ENOXAPARIN SODIUM 40 MG/0.4 ML SYRINGE SQ SCH (18:16)
[2016-09-22] VITALS (16 sets, daily range): BP systolic 93–115; BP diastolic 48–65; PULSE 64–99; RESP 16–17; TEMP 97.7–98.1; O2SAT 94–98
[2016-09-22] MEDS: LEVOTHYROXINE SODIUM 150 MCG TAB PO SCH (06:21)
[2016-09-22] MEDS: FAMOTIDINE 20 MG TAB PO SCH (08:19)
[2016-09-22] MEDS: SODIUM CHLORIDE 0.9% FLUSH 10 ML FLUSH IV FLUSH SCH (08:19)
[2016-09-22] MEDS: MONTELUKAST SODIUM 10 MG TAB PO SCH (08:19)
[2016-09-22] MEDS: LORATADINE 10 MG TAB PO SCH (08:20)
[2016-09-22] MEDS: DOCUSATE SODIUM 50 MG/SENNA 8.6 MG TAB PO SCH (08:21)
[2016-09-22] MEDS: ASPIRIN EC 81 MG TABEC PO SCH (08:21)
[2016-09-22] MEDS: IPRATROPIUM 0.03% NASAL SCH ×2 (08:21→11:37)
[2016-09-22] MEDS: SACUBITRIL/VALSARTAN 24 MG-26 MG TAB PO SCH (08:24)
[2016-09-22] MEDS ORDERED: CARVEDILOL 3.125 MG TAB PO SCH (09:00)
--- NOTE | 2016-09-22 12:25 | PD.CARD.PN ---
Subjective Subjective Remarks No symptoms Up and ambulating Objective Medications Current Medications Medications (Trade) Dose Ordered Sig/Fortino Route Start Time Stop Time Status Last Admin (NS Flush) 2 ml UNSCH PRN IV FLUSH 09/15/16 15:00 (NS Flush) 2 ml BID IV FLUSH 09/15/16 21:00 09/22/16 08:19 (Tylenol) 650 mg Q4H PRN PO 09/15/16 15:00 (Zofran Inj) 4 mg Q6H PRN IVP 09/15/16 15:00 (Lovenox Inj) 40 mg Q24H SQ 09/15/16 17:00 09/21/16 18:16 (Narcan Inj) 0.4 mg UNSCH PRN IV 09/15/16 15:00 ([place]-Colace) 1 tab BID PO 09/15/16 21:00 09/20/16 09:26 (Milk Of Magnesia Liq) 30 ml Q12H PRN PO 09/15/16 15:00 (Senokot) 17.2 mg Q12H PRN PO 09/15/16 15:00 (Dulcolax Supp) 10 mg DAILY PRN RECTAL 09/15/16 15:00 (Lactulose Liq) 30 ml DAILY PRN PO 09/15/16 15:00 (Ecotrin Ec) 81 mg DAILY PO 09/16/16 09:00 09/22/16 08:21 (Synthroid) 150 mcg DAILY@06 PO 09/16/16 06:00 09/22/16 06:21 (Claritin) 10 mg DAILY PO 09/16/16 09:00 09/22/16 08:20 (Singulair) 10 mg DAILY PO 09/16/16 09:00 09/22/16 08:19 Patient Own Medication PT OWN MED: IPRATROPRIUM BROM... TID NASAL 09/16/16 18:00 09/22/16 11:37 (Pill Splitter) 1 ea UNSCH PRN OTHER 09/16/16 21:00 (Pepcid) 10 mg BID PO 09/17/16 21:00 09/22/16 08:19 (Entresto 24-26 Mg) 1 tab BID PO 09/18/16 21:00 09/22/16 08:24 (Atropine Inj) 0.5 mg UNSCH PRN IV 09/18/16 14:30 (Coreg) 3.125 mg DAILY PO 09/22/16 09:00 Vital Signs / I&O Vital Signs Date Time Temp Pulse Resp B/P Pulse Ox O2 Delivery O2 Flow Rate FiO2 09/22/16 12:00 99 09/22/16 11:30 98.1 92 17 97/56 94 09/22/16 11:00 99 09/22/16 10:00 78 09/22/16 09:00 83 09/22/16 08:00 80 09/22/16 07:30 97.7 78 17 93/48 98 09/22/16 07:00 87 09/22/16 06:00 72 09/22/16 05:00 68 09/22/16 04:00 64 09/22/16 04:00 97.7 64 16 94/57 97 09/22/16 03:00 66 09/22/16 02:00 76 09/22/16 01:00 70 09/22/16 00:00 97.8 94 16 115/65 96 09/22/16 00:00 94 09/21/16 23:00 96 09/21/16 22:00 96 09/21/16 21:00 90 09/21/16 20:00 96 09/21/16 20:00 98.4 92 16 113/62 96 09/21/16 19:00 94 09/21/16 18:00 96 09/21/16 17:00 93 09/21/16 16:00 79 09/21/16 15:00 98.4 88 17 97/49 95 09/21/16 15:00 86 09/21/16 14:00 90 09/21/16 13:00 72 I/O 09/21/16 09/21/16 09/21/16 09/22/16 09/22/16 09/22/16 06:59 14:59 22:59 06:59 14:59 22:59 Intake Total 240 ml 720 ml 240 ml Output Total 400 ml 1100 ml 600 ml Balance -160 ml -380 ml -360 ml Intake Oral 240 ml 720 ml 240 ml Output Urine Total 400 ml 1100 ml 600 ml # Bowel Movements 0 Physical Exam GENERAL: NAD, AAOx3 SKIN: Warm and dry. HEAD: Atraumatic. Normocephalic. EYES: Pupils equal and round. No scleral icterus. No injection or drainage. ENT: No nasal bleeding or discharge. Mucous membranes pink and moist. NECK: Trachea midline. No JVD. CARDIOVASCULAR: Regular rate and rhythm. RESPIRATORY: No accessory muscle use. Clear to auscultation. Breath sounds equal bilaterally. GASTROINTESTINAL: Abdomen soft, non-tender, nondistended. Hepatic and splenic margins not palpable. MUSCULOSKELETAL: Extremities without clubbing, cyanosis, or edema. No obvious deformities. Right femoral no hematoma/bruit, neurovascularly intact distally NEUROLOGICAL: Awake and alert. No obvious cranial nerve deficits. Motor grossly within normal limits. Five out of 5 muscle strength in the arms and legs. Normal speech. PSYCHIATRIC: Appropriate mood and affect; insight and judgment normal. Assessment and Plan Problem List: (1) Systolic CHF (2) Acute exacerbation of CHF (congestive heart failure) (3) Cardiomyopathy (4) Left bundle branch block (5) NSVT (nonsustained ventricular tachycardia) Assessment and Plan 1) No significant CAD 2) NICM EF 15% 3) Pressures down, well compensated 4) NSVT on Coreg Lifevest ordered 5) Echo in 3 months to see if resolution of cardiomyopathy 6) Less hypotensive today, doing better, con't meds OK with Coreg once a day, or 1/2 BID... if further NSVT may need to stop Entresto and increase Coreg 7) Cardiovascularly stable for discharge Will watch BP at home, if low or symptoms then will call Dr. Albert or myself for changes in medications Problem Qualifiers (1) Systolic CHF: Qualified Code: I50.21 - Acute systolic congestive heart failure (2) Acute exacerbation of CHF (congestive heart failure): Qualified Code: I50.23 - Acute on chronic systolic congestive heart failure Lokesh Murcia DO Sep 22, 2016 12:25
[2016-09-22] MEDS ORDERED: CARV3.125 PO (12:51)
[2016-09-22] MEDS ORDERED: SACU1TAB PO (12:51)
--- NOTE | 2016-09-22 18:05 | HHI.PR ---
Subjective Interval History Alert, oriented, walking around the [place], no complaints, no lightheadedness, blood pressure well controlled Review of Systems Constitutional Constitutional Remarks 10 systems reviewed and otherwise negative Vitals/Results Intake & Output 09/21/16 09/21/16 09/22/16 15:00 23:00 07:00 Intake Total 720 ml 240 ml Output Total 1100 ml 600 ml Balance -380 ml -360 ml Intake Oral 720 ml 240 ml Output Urine Total 1100 ml 600 ml # Bowel Movements 0 Vital Signs Vital Signs Date Time Temp Pulse Resp B/P Pulse Ox O2 Delivery O2 Flow Rate FiO2 09/22/16 13:00 96 09/22/16 12:00 99 09/22/16 11:30 98.1 92 17 97/56 94 09/22/16 11:00 99 09/22/16 10:00 78 09/22/16 09:00 83 09/22/16 08:00 80 09/22/16 07:30 97.7 78 17 93/48 98 09/22/16 07:00 87 09/22/16 06:00 72 09/22/16 05:00 68 09/22/16 04:00 64 09/22/16 04:00 97.7 64 16 94/57 97 09/22/16 03:00 66 09/22/16 02:00 76 09/22/16 01:00 70 09/22/16 00:00 97.8 94 16 115/65 96 09/22/16 00:00 94 09/21/16 23:00 96 09/21/16 22:00 96 09/21/16 21:00 90 09/21/16 20:00 96 09/21/16 20:00 98.4 92 16 113/62 96 09/21/16 19:00 94 CBC/BMP: 09/19/16 0503 09/20/16 1411 Physical Exam General General Appearance: Well Developed, Well Nourished, No Acute Distress, Comfortable Eyes Eye Exam: Pupils Equal, Pupils Reactive Ears & Nose Ears & Nose Exam: Nasal Mucosa [place] Throat Throat Exam: Oral Mucosa [place] & Moist Neck Neck Exam: Neck Supple, Trachea Midline Pulmonary Resp Remarks LifeVest in place Cardiology CV Exam: Regular, Good Perfusion Gastrointestinal/Abdomen GI Exam: Soft, Non-Tender, Bowel Sounds Present, Non-Distended Musculoskeletal MS Exam: Normal Tone Integumentary Skin Exam: Warm, Intact Extremeties Extremities Exam: No Edema, Pedal Pulses Palpable Neurologic Neuro Exam: Alert, Awake, Oriented, Speech Clear, Moving All Extremities, No Focal Deficits VTE Prophylaxis VTE Prophylaxis Meds: Lovenox Assessment/Plan Problem List: (1) Acute exacerbation of CHF (congestive heart failure) (2) Allergic rhinitis (3) Hypothyroid (4) Left bundle branch block Assessment/Plan Assessment blood pressure better LifeVest installed 09/20/16 Episode of orthostatic hypotension 09/19/16, no orthostasis since Acute systolic heart failure, symptoms improved Ejection fraction 1520% Nonischemic cardiomyopathy Status post cardiac catheterization on 09/28/16 Underweight status History of hypothyroidism and allergic rhinitis Management Coreg to 3.125 mg once a day Hold diuretics if systolic below 100 Replace Potassium as needed Ambulate discharge home Discussed with patient Discussed with nurse 35 minutes Discharge Minutes: 40 Problem Qualifiers (1) Acute exacerbation of CHF (congestive heart failure): Qualified Code: I50.23 - Acute on chronic systolic congestive heart failure (2) Allergic rhinitis: (3) Hypothyroid: Qualified Code: E03.9 - Hypothyroidism, unspecified type Karli Stevenson MD Sep 22, 2016 18:05
== END 2016-09-22 15:05 | disposition home health service (06) | DRG 287 ==
LOC: NEPC 11:52 → NEDA 15:01 → NEPGCP 17:08 → OBSVTOIN 09-17 10:29 → HCIN 09-17 16:34
PROVIDERS: ADMIT Specialist; ATTEND Specialist
PROC: B2111ZZ Fluoroscopy of Multiple Coronary Arteries using Low Osmolar Contrast (ICD-10-PCS; 2016-09-18)
PROC: 4A023N8 Measurement of Cardiac Sampling and Pressure, Bilateral, Percutaneous Approach (ICD-10-PCS; principal; 2016-09-18 11:00)
DX: I50.23 Acute on chronic systolic (congestive) heart failure (principal); I47.2 Ventricular tachycardia; I42.8 Other cardiomyopathies; I44.7 Left bundle-branch block, unspecified; I95.2 Hypotension due to drugs; T50.1X5A Adverse effect of loop [high-ceiling] diuretics, initial encounter; E03.9 Hypothyroidism, unspecified; J30.9 Allergic rhinitis, unspecified; K21.9 Gastro-esophageal reflux disease without esophagitis; R63.6 Underweight; Z68.21 Body mass index [BMI] 21.0-21.9, adult; Z91.040 Latex allergy status; Z23 Encounter for immunization
CPT/HCPCS: 71010; 71275; 74176; 78452; 80048; 82550; 82810; 83735; 83880; 84484; 85025; 85379; 90732; 93005; 93017; 93306; 93456; 94620; 96372; 96374; 96376; A9502; C1769; C1893; G0378; J0171; J0461; J1644; J1650; J1940; J2250; J2785; J3010; J7050; Q9967

== ENCOUNTER 2017-10-07 08:48 | Observation (INO) ==
[2017-10-07] MEDS ORDERED: Sodium Chlor 0.9% Inj 250 ML IV.SIG ONE (09:19)
[2017-10-07 09:48] LABS: Baso # (Auto) 0.1 th/mm3 (0.0-0.2); Baso % (Auto) 1.1 % (0.0-2.0); Eos # (Auto) 0.2 th/mm3 (0.0-0.4); Eos % (Auto) 2.9 % (0.0-4.0); Hematocrit 38.4 % (35.0-46.0); Hemoglobin 13.8 gm/dL (11.6-15.3); Lymph % (Auto) 28.2 % (9.0-44.0); Mean Corpuscular Volume 91.8 fL (80.0-100.0); Mean Platelet Volume 7.5 fL (7.0-11.0); Mono # (Auto) 0.8 th/mm3 (0.0-0.9); Mono % (Auto) 11.1 % (0.0-8.0); Neut # (Auto) 4.1 th/mm3 (1.8-7.7); Neut % (Auto) 56.7 % (16.0-70.0); Platelet Count 394 th/mm3 (150-450); Red Blood Count 4.18 mil/mm3 (4.00-5.30); Red Cell Distribution Width 14.4 % (11.6-17.2); White Blood Count 7.3 th/mm3 (4.0-11.0)
--- NOTE | 2017-10-07 09:55 | XR ---
EXAM DATE: 10/07/2017 9:50 AM EDT AGE/SEX: 77 years / Female INDICATIONS: Chest pain CLINICAL DATA: This is the patient's initial encounter. Patient reports that signs and symptoms have been present for 1 day and indicates a pain score of 4/10. MEDICAL/SURGICAL HISTORY: Congestive heart failure. Hypothyroidism. Cardiovascular disease . Colon resection. Hysterectomy.Cholecystectomy [place] [facility] [place]. . FINDINGS: No significant new focal pleural or parenchymal opacities. The cardiac silhouette is mildly enlarged . Osseous structures are intact. CONCLUSION: 1. Mild compensated cardiomegaly. Electronically signed by: Ji Eller MD 10/07/2017 9:54 AM EDT
[2017-10-07 10:03] LABS: Alanine Aminotransferase 26 U/L (10-53); Albumin 3.4 g/dL (3.4-5.0); Anion Gap 8 meq/L (5-15); Aspartate Aminotransferase 26 U/L (15-37); Blood Urea Nitrogen 27 mg/dL (7-18); Calcium 8.6 mg/dL (8.5-10.1); Carbon Dioxide 25.8 meq/L (21.0-32.0); Chloride 106 meq/L (98-107); Glomerular Filtration Rate 50 mL/min (>89); Glucose,Random 127 mg/dL (74-106); Potassium 4.1 meq/L (3.5-5.1); Sodium 140 meq/L (136-145)
[2017-10-07 10:05] LABS: Activated Partial Thrombo Time 20.7 sec (24.3-30.1); INR 1.1 Ratio; Prothrombin Time 10.7 sec (9.8-11.6)
[2017-10-07 10:13] LABS: Alkaline Phosphatase 55 U/L (45-117); Creatine Kinase 215 U/L (26-192); Thyroid Stimulating Hormone 0.307 uIU/mL (0.358-3.740); Total Protein 7.1 g/dL (6.4-8.2)
[2017-10-07 10:26] LABS: CKMB Percent 3.2 % (0.0-4.0); Creatine Kinase MB 6.8 ng/mL (0.5-3.6)
--- NOTE | 2017-10-07 10:32 | ED ---
HPI General Chief complaint: Arrhythmia/Palpitations Stated complaint: cardiac complaint Time Seen by Provider: 10/07/17 09:13 Source: patient Mode of arrival: ambulatory Limitations: no limitations History of Present Illness HPI narrative: Patient is a 77-year-old female who comes in complaining of an episode this morning of low blood pressure, low pulse and a feeling of nauseousness and dizziness. She has a history of cardiomyopathy, and says that she took her blood pressure this morning and noticed it was very low. She also noticed her pulse was in the 40s. At that time she felt unwell. She says she never had any chest pain. Currently, she has no symptoms. She denies any shortness of breath. She denies any leg swelling or leg pain. She reports compliance with her medications. Severity is mild to moderate. Related Data Home Medications Medication Instructions Recorded Confirmed calcium carbonate [Calcium 500] BID 10/07/17 carvedilol 3.125 mg PO BID 10/07/17 10/07/17 furosemide [Lasix] 20 mg PO DAILY 10/07/17 10/07/17 ipratropium bromide TID 10/07/17 levothyroxine 112 mcg PO DAILY 10/07/17 10/07/17 multivitamin 1 tab PO DAILY 10/07/17 10/07/17 omega 1-pqg-dwu-fish oil [Fish Oil] 1,200 mg PO DAILY 10/07/17 10/07/17 ranitidine HCl 150 mg PO BID PRN 10/07/17 10/07/17 sacubitril-valsartan 1 tab PO BID 10/07/17 10/07/17 Previous Rx's Medication Instructions Recorded apixaban [Eliquis] 5 mg PO BID #60 tab 10/08/17 digoxin 125 mcg PO DAILY #30 tab 10/08/17 Allergies Allergy/AdvReac Type Severity Reaction Status Date / Time latex Allergy Intermediate RASH AND Unverified 09/26/16 12:42 ITCHY Review of Systems ROS: all other systems reviewed are negative Constitutional Denies chills and Denies fever(s) ENT Reports dizziness Cardiovascular Denies edema and Denies dyspnea Respiratory Denies dyspnea Gastrointestinal Denies abdominal pain, Reports nausea and Denies vomiting Musculoskeletal Denies myalgias and Denies arthralgias Integumentary/Breasts Denies lesions and Denies rash Neurologic Denies focal weakness and Denies numbness [facility] Medical History Medical History CHF (congestive heart failure) (Acute) H/O: hysterectomy (Acute) Hypothyroidism (Acute) Surgical History Surgical History H/O splenectomy (Acute) Hx of tubal ligation (Acute) Family History Family History Other Patient denies significant medical history Social History Social History Substance History: No History of Abuse Second Hand Smoke Exposure: No Smoking Status: Never smoker How Often Do You Have a Drink Containing Alcohol: Monthly or less Recent Travel in [facility] within the Last 8 Weeks: No Recent Out of Country Travel within the Last 8 Weeks: No Immunization History Tetanus Immunization: Unsure Hx Influenza Vaccine This Season: Yes Exam Narrative Exam Narrative: GENERAL: Awake and alert, no acute distress. SKIN: Focused skin assessment warm/dry. HEAD: Atraumatic. Normocephalic. EYES: Pupils equal and round. No scleral icterus. ENT: No nasal bleeding or discharge. Mucous membranes pink and moist. NECK: Trachea midline. No JVD. CARDIOVASCULAR: Tachycardia. No murmur appreciated. RESPIRATORY: No accessory muscle use. Clear to auscultation. Breath sounds equal bilaterally. GASTROINTESTINAL: Abdomen soft, non-tender, nondistended. MUSCULOSKELETAL: No obvious deformities. No clubbing. No cyanosis. No edema. NEUROLOGICAL: Awake and alert. No obvious cranial nerve deficits. Motor grossly within normal limits. Normal speech. PSYCHIATRIC: Appropriate mood and affect; insight and judgment normal. Course Initial Documented Vital Signs Temperature 96.7 F L 10/07/17 08:58 Pulse Rate 89 10/07/17 08:58 Respiratory Rate 18 10/07/17 08:58 Blood Pressure 109/64 10/07/17 08:58 Pulse Oximetry 98 10/07/17 08:58 Last Documented Vital Signs Temperature 98.5 F 10/08/17 07:28 Pulse Rate 67 10/08/17 09:00 Respiratory Rate 16 10/08/17 07:28 Blood Pressure 136/67 10/08/17 07:28 Pulse Oximetry 97 10/08/17 08:00 Medical Decision Making MDM Narrative Medical decision making narrative: Patient is a 77-year-old female who comes in complaining of heart issues. Exam shows tachycardia. IV established, labs sent. Patient connected to the filling carrier. ECG performed shows new onset atrial fibrillation. Her rate is in the 90s to low 100s. She is given a dose of IV fluids. Labs show no acute abnormalities. I spoke with Dr. Escoto who suggests digoxin, Eliquis and observation. Medical Screen Exam Complete: Yes Emergency Medical Condition: Yes Differential Diagnosis Differential Diagnosis: Electrolyte abnormality versus new onset A. fib versus dehydration versus hyperthyroidism Medical Records Medical records reviewed: Yes I reviewed the patient's medical records. Lab Data Lab results reviewed: Yes I reviewed the patient's lab results. Result diagrams: 10/07/17 09:24 10/07/17 09:24 Lab Results 10/07/17 10/07/17 10/07/17 Range/Units 09:24 09:24 09:24 WBC 7.3 (4.0-11.0) th/mm3 RBC 4.18 (4.00-5.30) mil/mm3 Hgb 13.8 (11.6-15.3) gm/dL Hct 38.4 (35.0-46.0) % MCV 91.8 (80.0-100.0) fL MCH 33.0 (27.0-34.0) pg MCHC 36.0 (32.0-36.0) % RDW 14.4 (11.6-17.2) % Plt Count 394 (150-450) th/mm3 MPV 7.5 (7.0-11.0) fL Prelim Diff (Auto) Slide review pending Neut % (Auto) 56.7 (16.0-70.0) % Lymph % (Auto) 28.2 (9.0-44.0) % [place] % (Auto) 11.1 H (0.0-8.0) % Eos % (Auto) 2.9 (0.0-4.0) % Baso % (Auto) 1.1 (0.0-2.0) % Neut # (Auto) 4.1 (1.8-7.7) th/mm3 Lymph # (Auto) 2.0 (1.0-4.8) th/mm3 [place] # (Auto) 0.8 (0.0-0.9) th/mm3 Eos # (Auto) 0.2 (0.0-0.4) th/mm3 Baso # (Auto) 0.1 (0.0-0.2) th/mm3 WBC Differential . Diff Scan Auto diff confirmed Differential Comment . PT 10.7 (9.8-11.6) sec INR 1.1 Ratio APTT 20.7 L (24.3-30.1) sec Sodium 140 (136-145) meq/L Potassium 4.1 (3.5-5.1) meq/L Chloride 106 (98-107) meq/L Carbon Dioxide 25.8 (21.0-32.0) meq/L Anion Gap 8 (5-15) meq/L BUN 27 H (7-18) mg/dL Creatinine 1.07 H (0.50-1.00) mg/dL Estimated GFR 50 L (>89) mL/min Random Glucose 127 H (74-106) mg/dL Calcium 8.6 (8.5-10.1) mg/dL Total Bilirubin 1.2 H (0.2-1.0) mg/dL AST 26 (15-37) U/L ALT 26 (10-53) U/L Alkaline Phosphatase 55 (45-117) U/L Total Creatine Kinase 215 H (26-192) U/L CK-MB (CK-2) 6.8 H (0.5-3.6) ng/mL CK-MB (CK-2) % 3.2 (0.0-4.0) % Troponin I Less than 0.02 L (0.02-0.05) ng/mL B-Natriuretic Peptide (0-100) pg/mL Total Protein 7.1 (6.4-8.2) g/dL Albumin 3.4 (3.4-5.0) g/dL TSH 0.307 L (0.358-3.740) uIU/mL Free T4 (0.76-1.46) ng/dL 10/07/17 10/07/17 Range/Units 09:24 09:24 WBC (4.0-11.0) th/mm3 RBC (4.00-5.30) mil/mm3 Hgb (11.6-15.3) gm/dL Hct (35.0-46.0) % MCV (80.0-100.0) fL MCH (27.0-34.0) pg MCHC (32.0-36.0) % RDW (11.6-17.2) % Plt Count (150-450) th/mm3 MPV (7.0-11.0) fL Prelim Diff (Auto) Neut % (Auto) (16.0-70.0) % Lymph % (Auto) (9.0-44.0) % [place] % (Auto) (0.0-8.0) % Eos % (Auto) (0.0-4.0) % Baso % (Auto) (0.0-2.0) % Neut # (Auto) (1.8-7.7) th/mm3 Lymph # (Auto) (1.0-4.8) th/mm3 [place] # (Auto) (0.0-0.9) th/mm3 Eos # (Auto) (0.0-0.4) th/mm3 Baso # (Auto) (0.0-0.2) th/mm3 WBC Differential Diff Scan Differential Comment PT (9.8-11.6) sec INR Ratio APTT (24.3-30.1) sec Sodium (136-145) meq/L Potassium (3.5-5.1) meq/L Chloride (98-107) meq/L Carbon Dioxide (21.0-32.0) meq/L Anion Gap (5-15) meq/L BUN (7-18) mg/dL Creatinine (0.50-1.00) mg/dL Estimated GFR (>89) mL/min Random Glucose (74-106) mg/dL Calcium (8.5-10.1) mg/dL Total Bilirubin (0.2-1.0) mg/dL AST (15-37) U/L ALT (10-53) U/L Alkaline Phosphatase (45-117) U/L Total Creatine Kinase (26-192) U/L CK-MB (CK-2) (0.5-3.6) ng/mL CK-MB (CK-2) % (0.0-4.0) % Troponin I (0.02-0.05) ng/mL B-Natriuretic Peptide 54 (0-100) pg/mL Total Protein (6.4-8.2) g/dL Albumin (3.4-5.0) g/dL TSH (0.358-3.740) uIU/mL Free T4 1.42 (0.76-1.46) ng/dL Imaging Data Radiologist's impression: Chest X-Ray 10/07/17 09:19 CONCLUSION: 1. Mild compensated cardiomegaly. ECG Data EKG Prior to Arrival: No Attestation: I personally reviewed and interpreted this ECG as follows: Interpretation: ECG shows atrial fibrillation Discharge Plan Discharge Disposition Patient Disposition: 01 Discharge Home Discharge Condition Condition: Stable Discharge Order Discharge Orders: Discharge Order (Routine); Ordered 10/08/17 Ordered By: Arabella Fleming Discharge Details Anticipated Discharge Date: 10/08/17 Physicians Team ED Provider: Jammie Cosby Attending Provider: Fredy Patricia Other Providers: Ti Albert Status ED Status: Left Department Discharge Information Discharge Date/Time: 10/07/17 16:03
[2017-10-07] MEDS ORDERED: Digoxin 250 MCG Tablet PO ONE (11:00)
--- NOTE | 2017-10-07 12:56 | MB ---
cc: Ti Albert MD DATE: 10/07/2017 REASON FOR CONSULTATION: New onset atrial fibrillation. HISTORY OF PRESENT ILLNESS: The patient is a very pleasant 77-year-old woman, well known to me, who has a history of a previously severe nonischemic cardiomyopathy, though her ejection fraction has improved above 35% in recent months with medical therapy. The patient does run chronically low blood pressures and has to spread out her medications in order to avoid symptomatic hypotension. The patient presented with feeling somewhat more lightheaded than usual and also a fluttering sensation in her heart. She presented to the hospital in a mildly rapid atrial fibrillation, but her rates have since come down. She is currently asymptomatic, denying any chest pain, palpitations, shortness of breath, lightheadedness or dizziness. PAST MEDICAL HISTORY: 1. Nonischemic cardiomyopathy with ejection fraction previously as low as 15%, which has improved in recent months to greater than 35% on Entresto and carvedilol. 2. Chronic hypotension due to cardiomyopathy medications. HOME MEDICATIONS: Include carvedilol, Entresto, aspirin. ALLERGIES: LATEX. PHYSICAL EXAMINATION: VITAL SIGNS: Afebrile, pulse 85, respiratory rate 16, BP 92/59, saturating 98 on room air. GENERAL: A very pleasant woman in no distress. NECK: No JVD. LUNGS: Clear to auscultation bilaterally. CARDIOVASCULAR: Irregularly irregular rhythm with a regular rate. No murmurs appreciated. ABDOMEN: Benign. EXTREMITIES: No edema. LABORATORY DATA: White count 7.3, hematocrit 38.4, platelets 394. INR is 1.1. Sodium 140, potassium 4.1, chloride 106, bicarbonate 25.8, BUN 27, creatinine 1.07, glucose 127. EKG shows atrial fibrillation with left bundle branch block at a rate of about 108. Current telemetry shows rate controlled atrial fibrillation. ASSESSMENT AND PLAN: New onset atrial fibrillation. The patient with a known nonischemic cardiomyopathy has new onset atrial fibrillation. Her blood pressures are marginal, so she will not tolerate much more in the way of AV hattie blocking agents with the exception of digoxin, so we will add low-dose digoxin now. She will require anticoagulation, so I will start Eliquis 5 mg b.i.d. given her age under 80 and normal creatinine. Though she looks quite well now, she does seem a bit nervous about going home, so I think observing her for 24 hours is reasonable, hopefully tomorrow morning. If she is tolerating her new medication, she can be discharged home. Thank you again for the opportunity to participate in this patient's care. MD EMIR Temple/ernestine/kaushik , 10:38 AM , 10:46 AM
--- NOTE | 2017-10-07 16:24 | P.HP ---
History of Present Illness Primary Care Physician: Scott Santillan History of Present Illness: 77-year-old white female being admitted for A. fib with RVR. Patient was in usual state of health until this morning when she woke up and began experiencing nonspecific fatigue. She did have some diaphoresis and nausea with no vomiting. Denies having any shortness of breath or chest pain or lightheadedness. Her symptoms started improving. Nonetheless she came to the hospital for evaluation. In the emergency department her EKG demonstrated which I independently reviewed A. fib with RVR. Her summons server happened to be present and he ordered digoxin which considerably helped her heart rate stabilize. Review of Systems All other systems reviewed negative except as stated in HPI PMFSH - History History Provided By: Patient, Family Member - Medical History Medical History: Medical History (Last Updated 10/07/17 @ 16:19 by Orlando Ch MD) CHF (congestive heart failure) H/O: hysterectomy Hypothyroidism - Surgical History Surgical History: Surgical History (Last Updated 10/07/17 @ 16:19 by Orlando Ch MD) H/O splenectomy Hx of tubal ligation - Family History Family History: Family History (Last Updated 10/07/17 @ 16:19 by Orlando Ch MD) Other Patient denies significant medical history - Tobacco History Smoking Status: Never smoker - Alcohol History How Often Do You Have a Drink Containing Alcohol: Monthly or less - Substance Use History Substance History: No History of Abuse - Travel History Recent Travel in the [place] Within the Last 8 Weeks: No Recent Travel Out of the Country Within the Last 8 Weeks: No - Immunization History Tetanus Immunization: Unsure Hx Influenza Vaccine This Season: Yes Medications and Allergies Active Medications: Active Medications Apixaban (Eliquis) 5 mg PO BID [facility] Last Admin: 10/07/17 11:17 Dose: 5 mg Aspirin (Aspirin Chew) 81 mg PO DAILY [facility] Digoxin (Lanoxin) 125 mcg PO DAILY [facility] Furosemide (Lasix) 20 mg PO DAILY [facility] Levothyroxine Sodium (Synthroid) 112 mcg PO DAILY@0600 [place] Sodium Chloride (Ns Flush) 2 ml IV.FLUSH BID [place] Sodium Chloride (Ns Flush) 2 ml IV.FLUSH UNSCH PRN PRN Reason: FLUSH AFTER USING IV ACCESS Allergies Allergy/AdvReac Type Severity Reaction Status Date / Time latex Allergy Intermediate RASH AND Unverified 09/26/16 12:42 ITCHY Home Medications Medication Instructions Recorded Confirmed Type aspirin 81 mg PO DAILY 10/07/17 10/07/17 History calcium carbonate [Calcium 500] BID 10/07/17 History carvedilol 3.125 mg PO BID 10/07/17 10/07/17 History furosemide [Lasix] 20 mg PO DAILY 10/07/17 10/07/17 History ipratropium bromide TID 10/07/17 History levothyroxine 112 mcg PO DAILY 10/07/17 10/07/17 History multivitamin 1 tab PO DAILY 10/07/17 10/07/17 History omega 0-czx-fnj-fish oil [Fish Oil] 1,200 mg PO DAILY 10/07/17 10/07/17 History ranitidine HCl 150 mg PO BID PRN 10/07/17 10/07/17 History sacubitril-valsartan 1 tab PO BID 10/07/17 10/07/17 History Exam Vital signs: Vital Signs 10/07/17 08:58 10/07/17 09:02 10/07/17 09:44 Temperature 96.7 F L Pulse Rate 89 109 H Respiratory Rate 18 18 Blood Pressure 109/64 102/52 L Pulse Oximetry 98 99 99 10/07/17 10:22 10/07/17 11:15 10/07/17 13:02 Temperature Pulse Rate 85 72 74 Respiratory Rate 16 16 18 Blood Pressure 92/59 L 100/57 L 104/50 L Pulse Oximetry 98 99 10/07/17 15:06 Temperature Pulse Rate 79 Respiratory Rate 17 Blood Pressure 102/52 L Pulse Oximetry 98 Intake & Output 10/06/17 10/07/17 10/07/17 18:59 06:59 18:59 Intake Total 250 / 250 Balance 250 / 250 Weight 51.256 kg Intake: IV 250 / 250 NS Inj 250 ML @ Wide Open IV. 250 / 250 SIG BOLUS ONE Rx#:[id number] Narrative: VS: afebrile GENERAL: NAD SKIN: Warm and dry. EYES: No scleral icterus. No injection or drainage. ENT: No nasal bleeding or discharge. Mucous membranes pink and moist. CARDIOVASCULAR: Regular rate and rhythm. no murmurs RESPIRATORY: No accessory muscle use. Clear to auscultation. Breath sounds equal bilaterally. GASTROINTESTINAL: Abdomen soft, non-tender, nondistended. Extremities: No clubbing, cyanosis, or edema. No obvious deformities. MUSCULOSKELETAL: grossly intact ROM with 5/5 strength in upper and lower extremities proximally; adequate muscle bulk and tone for age and habitus NEUROLOGICAL: Awake and alert. No obvious cranial nerve deficits. No facial droop nor slurred speech noted. PSYCHIATRIC: Appropriate mood and affect; insight and judgment normal. Results - Labs CBC & Chem 7: 10/07/17 09:24 10/07/17 09:24 Labs: Laboratory Results - last 24 hr 10/07/17 10/07/17 10/07/17 09:24 09:24 09:24 WBC 7.3 RBC 4.18 Hgb 13.8 Hct 38.4 MCV 91.8 MCH 33.0 MCHC 36.0 RDW 14.4 Plt Count 394 MPV 7.5 Prelim Diff (Auto) Slide review pending Neut % (Auto) 56.7 Lymph % (Auto) 28.2 [place] % (Auto) 11.1 H Eos % (Auto) 2.9 Baso % (Auto) 1.1 Neut # (Auto) 4.1 Lymph # (Auto) 2.0 [place] # (Auto) 0.8 Eos # (Auto) 0.2 Baso # (Auto) 0.1 WBC Differential . Diff Scan Auto diff confirmed Differential Comment . PT 10.7 INR 1.1 APTT 20.7 L Sodium 140 Potassium 4.1 Chloride 106 Carbon Dioxide 25.8 Anion Gap 8 BUN 27 H Creatinine 1.07 H Estimated GFR 50 L Random Glucose 127 H Calcium 8.6 Total Bilirubin 1.2 H AST 26 ALT 26 Alkaline Phosphatase 55 Total Creatine Kinase 215 H CK-MB (CK-2) 6.8 H CK-MB (CK-2) % 3.2 Troponin I Less than 0.02 L B-Natriuretic Peptide Total Protein 7.1 Albumin 3.4 TSH 0.307 L 10/07/17 09:24 WBC RBC Hgb Hct MCV MCH MCHC RDW Plt Count MPV Prelim Diff (Auto) Neut % (Auto) Lymph % (Auto) [place] % (Auto) Eos % (Auto) Baso % (Auto) Neut # (Auto) Lymph # (Auto) [place] # (Auto) Eos # (Auto) Baso # (Auto) WBC Differential Diff Scan Differential Comment PT INR APTT Sodium Potassium Chloride Carbon Dioxide Anion Gap BUN Creatinine Estimated GFR Random Glucose Calcium Total Bilirubin AST ALT Alkaline Phosphatase Total Creatine Kinase CK-MB (CK-2) CK-MB (CK-2) % Troponin I B-Natriuretic Peptide 54 Total Protein Albumin TSH - Imaging Impressions Chest X-Ray 10/07/17 09:19 CONCLUSION: 1. Mild compensated cardiomegaly. Caprini VTE Risk Assessment Caprini VTE Risk Assessment: Moderate/High Risk (score >= 2) Caprini Risk Assessment Model: Point Value = 1 Point Value = 2 Point Value = 3 Point Value = 5 Age 41-60 Minor surgery BMI > 25 kg/m2 Swollen legs Varicose veins or History of unexplained or recurrent spontaneous Oral contraceptives or hormone replacement Sepsis (< 1 month) Serious lung disease, including pneumonia (< 1 month) Abnormal pulmonary function Acute myocardial infarction Congestive heart failure (< 1 month) History of inflammatory bowel disease Medical patient at bed rest Age 61-74 Arthroscopic surgery Major open surgery (> 45 min) Laparoscopic surgery (> 45 min) Malignancy Confined to bed (> 72 hours) Immobilizing plaster cast Central venous access Age >= 75 History of VTE Family history of VTE Factor V Leiden Prothrombin [id number] Lupus anticoagulant Anticardiolipin antibodies Elevated serum homocysteine Heparin-induced thrombocytopenia Other congenital or acquired thrombophilia Stroke (< 1 month) Elective arthroplasty Hip, pelvis, or leg fracture Acute spinal cord injury (< 1 month) Prophylaxis Regimen: Total Risk Factor Score Risk Level Prophylaxis Regimen 0-1 Low Early ambulation 2 Moderate Order ONE of the following: *Sequential Compression Device (SCD) *Heparin 5000 units SQ BID 3-4 Higher Order ONE of the following medications: *Heparin 5000 units SQ TID *Enoxaparin/Lovenox 40 mg SQ daily (WT < 150 kg, CrCl > 30 mL/min) *Enoxaparin/Lovenox 30 mg SQ daily (WT < 150 kg, CrCl > 10-29 mL/min) *Enoxaparin/Lovenox 30 mg SQ BID (WT < 150 kg, CrCl > 30 mL/min) AND/OR *Sequential Compression Device (SCD) 5 or more Highest Order ONE of the following medications: *Heparin 5000 units SQ TID (Preferred with Epidurals) *Enoxaparin/Lovenox 40 mg SQ daily (WT < 150 kg, CrCl > 30 mL/min) *Enoxaparin/Lovenox 30 mg SQ daily (WT < 150 kg, CrCl > 10-29 mL/min) *Enoxaparin/Lovenox 30 mg SQ BID (WT < 150 kg, CrCl > 30 mL/min) AND *Sequential Compression Device (SCD) Assessment and Plan - Plan 77-year-old white female being admitted for A. fib with RVR A. fib with RVR -New onset, cardiology following, status post digoxin loading, oral digoxin daily, on telemetry, on Eliquis now per cardiology; unlikely to be on beta- blockers per cards notes about avoiding AV node agents given borderline BPs Check TSH Chronic systolic congestive heart failure Continue home Entresto when blood pressure is more stable Hypothyroidism Continue home levothyroxine eliquis
--- NOTE | 2017-10-07 20:33 | ECG ---
Date Performed: 10/07/2017 Time Performed: 09:09:28 PTAGE: 77 years EKG: ATRIAL FIBRILLATION WITH RAPID VENTRICULAR RESPONSE MARKED LEFT AXIS DEVIATION LEFT BUNDLE BRANCH BLOCK ABNORMAL ECG Compared to PREVIOUS TRACING , SR no longer present DOCTOR: Ansley Calixto Interpretating Date/Time 10/07/2017 20:31:03
[2017-10-08] MEDS ORDERED: Levothyroxine 112 MCG Tablet PO SCH (06:00)
[2017-10-08 07:30] VITALS: BP 136/67; RESP 16; TEMP 98.5; O2SAT 97
--- NOTE | 2017-10-08 08:48 | P.PN ---
Subjective Interval history: Pt feels well, rate controlled AF on tele. Physical Exam Vital signs: Vital Signs 10/07/17 08:58 10/07/17 09:02 10/07/17 09:44 Temperature 96.7 F L Pulse Rate 89 109 H Respiratory Rate 18 18 Blood Pressure 109/64 102/52 L Pulse Oximetry 98 99 99 10/07/17 10:22 10/07/17 11:15 10/07/17 13:02 Temperature Pulse Rate 85 72 74 Respiratory Rate 16 16 18 Blood Pressure 92/59 L 100/57 L 104/50 L Pulse Oximetry 98 99 10/07/17 15:06 10/07/17 20:00 10/07/17 20:30 Temperature 97.8 F Pulse Rate 79 89 101 H Respiratory Rate 17 18 Blood Pressure 102/52 L 119/56 L Pulse Oximetry 98 97 10/08/17 00:00 10/08/17 04:00 10/08/17 07:28 Temperature 97.7 F 98.1 F 98.5 F Pulse Rate 60 54 L 65 Respiratory Rate 17 17 16 Blood Pressure 108/67 123/57 L 136/67 Pulse Oximetry 94 L 96 97 Intake & Output 10/07/17 10/08/17 10/08/17 18:59 06:59 18:59 Intake Total 250 / 250 Balance 250 / 250 Weight 51.256 kg 56.1 kg Intake: IV 250 / 250 NS Inj 250 ML @ Wide Open IV. 250 / 250 SIG BOLUS ONE Rx#:[id number] - Constitutional no acute distress - Routine HEENT Exam Head: Present: normocephalic Eye: Present: EOMI ENT: Present: mucous membranes moist - Routine Neck Exam Present: supple. Absent: JVD - Routine Respiratory Exam Present: CTA bilaterally - Routine Cardiovascular Exam Present: irregularly irregular. Absent: murmur, tachycardia - Routine Abdominal Exam Present: soft - Routine Extremities Exam Absent: edema Results - Labs CBC & Chem 7: 10/07/17 09:24 10/07/17 09:24 Laboratory Results - last 24 hr 10/07/17 10/07/17 10/07/17 09:24 09:24 09:24 WBC 7.3 RBC 4.18 Hgb 13.8 Hct 38.4 MCV 91.8 MCH 33.0 MCHC 36.0 RDW 14.4 Plt Count 394 MPV 7.5 Prelim Diff (Auto) Slide review pending Neut % (Auto) 56.7 Lymph % (Auto) 28.2 [place] % (Auto) 11.1 H Eos % (Auto) 2.9 Baso % (Auto) 1.1 Neut # (Auto) 4.1 Lymph # (Auto) 2.0 [place] # (Auto) 0.8 Eos # (Auto) 0.2 Baso # (Auto) 0.1 WBC Differential . Diff Scan Auto diff confirmed Differential Comment . PT 10.7 INR 1.1 APTT 20.7 L Sodium 140 Potassium 4.1 Chloride 106 Carbon Dioxide 25.8 Anion Gap 8 BUN 27 H Creatinine 1.07 H Estimated GFR 50 L Random Glucose 127 H Calcium 8.6 Total Bilirubin 1.2 H AST 26 ALT 26 Alkaline Phosphatase 55 Total Creatine Kinase 215 H CK-MB (CK-2) 6.8 H CK-MB (CK-2) % 3.2 Troponin I Less than 0.02 L B-Natriuretic Peptide Total Protein 7.1 Albumin 3.4 TSH 0.307 L Free T4 10/07/17 10/07/17 09:24 09:24 WBC RBC Hgb Hct MCV MCH MCHC RDW Plt Count MPV Prelim Diff (Auto) Neut % (Auto) Lymph % (Auto) [place] % (Auto) Eos % (Auto) Baso % (Auto) Neut # (Auto) Lymph # (Auto) [place] # (Auto) Eos # (Auto) Baso # (Auto) WBC Differential Diff Scan Differential Comment PT INR APTT Sodium Potassium Chloride Carbon Dioxide Anion Gap BUN Creatinine Estimated GFR Random Glucose Calcium Total Bilirubin AST ALT Alkaline Phosphatase Total Creatine Kinase CK-MB (CK-2) CK-MB (CK-2) % Troponin I B-Natriuretic Peptide 54 Total Protein Albumin TSH Free T4 1.42 - Imaging Impressions Chest X-Ray 10/07/17 09:19 CONCLUSION: 1. Mild compensated cardiomegaly. Assessment and Plan - Assessment (1) Atrial fibrillation Code(s): I48.91 - Unspecified atrial fibrillation Status: Acute Plan: currently well controlled, her bb was held here due to bp and timing issues, she will resume her coreg at home, started eliquis and digoxin (2) NICM (nonischemic cardiomyopathy) Code(s): I42.8 - Other cardiomyopathies Status: Acute Plan: on entresto/coreg (will resume her coreg at home) (3) Chronic systolic (congestive) heart failure Code(s): I50.22 - Chronic systolic (congestive) heart failure Status: Acute Plan: well compensated. - Plan ok to d/c home to f/u with me in the office.
[2017-10-08] MEDS ORDERED: Furosemide 20 MG Tablet PO SCH (09:00)
[2017-10-08] MEDS ORDERED: Digoxin 125 MCG Tablet PO SCH (09:00)
[2017-10-08 09:02] VITALS: PULSE 67
--- NOTE | 2017-10-08 10:01 | P.PN ---
Subjective Interval history: Follow-up for atrial fibrillation with RVR. Patient reports feeling much better today. She denies any further palpitations. Heart rate has been well controlled on telemetry. She denies any chest pain or shortness of breath. She has been ambulating the unit without difficulty. She was seen by her auto brake mechanic Dr. Albert this morning and cleared for discharge. The patient wants to go home. Physical Exam Vital signs: Vital Signs 10/07/17 10:22 10/07/17 11:15 10/07/17 13:02 Temperature Pulse Rate 85 72 74 Respiratory Rate 16 16 18 Blood Pressure 92/59 L 100/57 L 104/50 L Pulse Oximetry 98 99 10/07/17 15:06 10/07/17 20:00 10/07/17 20:30 Temperature 97.8 F Pulse Rate 79 89 101 H Respiratory Rate 17 18 Blood Pressure 102/52 L 119/56 L Pulse Oximetry 98 97 10/08/17 00:00 10/08/17 04:00 10/08/17 07:28 Temperature 97.7 F 98.1 F 98.5 F Pulse Rate 60 54 L 65 Respiratory Rate 17 17 16 Blood Pressure 108/67 123/57 L 136/67 Pulse Oximetry 94 L 96 97 10/08/17 09:00 Temperature Pulse Rate 67 Respiratory Rate Blood Pressure Pulse Oximetry Intake & Output 10/07/17 10/08/17 10/08/17 18:59 06:59 18:59 Intake Total 250 / 250 Balance 250 / 250 Weight 51.256 kg 56.1 kg Intake: IV 250 / 250 NS Inj 250 ML @ Wide Open IV. 250 / 250 SIG BOLUS ONE Rx#:[id number] Narrative: GENERAL: Well-nourished, well-developed pleasant elderly female patient in [facility]. SKIN: Warm and dry. No rash. HEENT: Normocephalic. Atraumatic. Mucous membranes pink and moist. CARDIOVASCULAR: Irregularly irregular rate and rhythm. No murmur appreciated. RESPIRATORY: No accessory muscle use. Clear to auscultation. Breath sounds equal bilaterally. GASTROINTESTINAL: Abdomen soft, non-tender, nondistended. Normoactive bowel sounds x4. MUSCULOSKELETAL: No obvious deformities. Extremities without clubbing, cyanosis , or edema. NEUROLOGICAL: Awake and alert. No obvious cranial nerve deficits. Motor grossly within normal limits. Moving all extremities spontaneously. Normal speech. PSYCHIATRIC: Appropriate mood and affect; insight and judgment normal. Results - Labs CBC & Chem 7: 10/07/17 09:24 10/07/17 09:24 Laboratory Results - last 24 hr 10/07/17 10/07/17 10/07/17 09:24 09:24 09:24 WBC Differential . Diff Scan Auto diff confirmed PT 10.7 INR 1.1 APTT 20.7 L Sodium 140 Potassium 4.1 Chloride 106 Carbon Dioxide 25.8 Anion Gap 8 BUN 27 H Creatinine 1.07 H Estimated GFR 50 L Random Glucose 127 H Calcium 8.6 Total Bilirubin 1.2 H AST 26 ALT 26 Alkaline Phosphatase 55 Total Creatine Kinase 215 H CK-MB (CK-2) 6.8 H CK-MB (CK-2) % 3.2 Troponin I Less than 0.02 L B-Natriuretic Peptide Total Protein 7.1 Albumin 3.4 TSH 0.307 L Free T4 10/07/17 10/07/17 09:24 09:24 WBC Differential Diff Scan PT INR APTT Sodium Potassium Chloride Carbon Dioxide Anion Gap BUN Creatinine Estimated GFR Random Glucose Calcium Total Bilirubin AST ALT Alkaline Phosphatase Total Creatine Kinase CK-MB (CK-2) CK-MB (CK-2) % Troponin I B-Natriuretic Peptide 54 Total Protein Albumin TSH Free T4 1.42 - Imaging Chest X-Ray 10/07/17 09:19 CONCLUSION: 1. Mild compensated cardiomegaly. Assessment and Plan - Plan 77-year-old female with history of atrial fibrillation, nonischemic cardiomyopathy/CHF, hypothyroidism, presents with palpitations, found to be in A. fib with RVR in the ER. Atrial fibrillation with RVR: Acute, heart rate in the 110s upon arrival. -Consulted patient's auto brake mechanic Dr. Escoto who saw the patient in the ER , started her on digoxin 125 mcg daily and Eliquis 5mg bid -Monitor on telemetry -Heart rate much improved, now well controlled in the 60s70s -Cleared for discharge by cardiology, outpatient follow-up Nonischemic cardiomyopathy/CHF: Chronic, does not appear to be in fluid overload -Continue patient's home medications including lasix, coreg, and Entresto -Outpatient f/up with auto brake mechanic Hypothyroidism: Chronic -Continue patient's levothyroxine GERD: Chronic -Continue patient's Zantac DVT prophylaxis: Eliquis Discharge Planning: Discharge patient to home Condition on discharge: Stable Heart healthy diet as tolerated Ad Micki activity Rx written: Eliquis 5 mg bid, digoxin 125 mcg Follow-up with primary care physician and auto brake mechanic Dr. Albert
== END 2017-10-08 11:00 | disposition home or self-care (01) ==
LOC: NEPC 08:48 → NEDA 08:48 → NEPHCDU 16:01
PROVIDERS: ADMIT Hospitalist; ATTEND Hospitalist